=== PATIENT | female | born 1950 | race Caucasian/White ===

== ENCOUNTER → 2019-08-05 13:53 | Outpatient (BNVA) | payer MEDICARE, MEDICAID, SELFPAY | PROVIDERS: Family Provider Family Medicine; PCP Family Medicine; Visit Provider Specialist | DX: M25.552 Pain in left hip (principal); M16.0 Bilateral primary osteoarthritis of hip | CPT/HCPCS: 73502; 80053; 81003; 87081 ==

== ENCOUNTER 2019-08-20 16:14 | Outpatient (CLI) | payer MEDICARE, MEDICAID, SELFPAY ==
--- NOTE | 2019-08-20 16:59 | PC.NURSE ---
Pt swabbed for COVID, sample sent to lab.
[2019-08-22 11:30] LABS: Coronavirus Lab Test PTC SEE REPORT
== END 2019-08-20 16:15 | disposition home or self-care (01) ==
LOC: LAB 16:15
PROVIDERS: PCP Family Medicine; Visit Provider Specialist
DX: Z01.812 Encounter for preprocedural laboratory examination (principal)
CPT/HCPCS: 80053; 81000; 81003; 87635

== ENCOUNTER 2019-08-24 17:10 | Observation (INO) | payer MEDICARE, MEDICAID, SELFPAY ==
[2019-08-17 10:57] VITALS: BMI 33.0
--- NOTE | 2019-08-17 11:11 | ECG_ITS ---
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 Measurements Intervals [place] Rate: 74 P: -36 VT: 180 QRS: -32 QRSD: 93 T: 75 QT: 379 QTc: 421 Interpretive Statements SINUS RHYTHM LOW QRS VOLTAGE IN PRECORDIAL LEADS [QRS DEFLECTION < 1.0 mV IN CHEST LEADS] INCOMPLETE RIGHT BUNDLE BRANCH BLOCK [90+ ms QRS DURATION, TERMINAL R IN V1/V2, 40+ ms S IN I/aVL/V4/V5/V6] MODERATE VOLTAGE CRITERIA FOR LVH, CONSIDER NORMAL VARIANT [MEETS CRITERIA IN ONE OF: R(aVL), S(V1), R(V5), R(V5/V6)+S(V1)] POSSIBLE ANTERIOR MYOCARDIAL INFARCTION [30 ms Q WAVE IN V3/V4, OR R < 0.2 mV IN V4], PROBABLY OLD INFERIOR MYOCARDIAL INFARCTION [40+ ms Q WAVE AND/OR ST/T ABNORMALITY IN II/aVF], PROBABLY OLD No previous ECG available for comparison Electronically Signed On 08-17-2019 16:58:14 CDT by David Lincoln M.D. [email or web address]
--- NOTE | 2019-08-17 11:26 | ANES.PREANE2 ---
Pre-Anesthetic Assessment Pre-Anesthetic Assessment: Height/Weight: Height 1.7 m Weight 95.708 kg Preop Diagnosis: Severe degenerative osteoarthritis left hip Proposed Procedure: Operation Date: 08/24/19 10:30 Proposed Procedures p Total Hip Arthroplasty 96655 M16.12(Left) - Arabella Ruelas MD Familial anesthetic complications: None Social: Social History: No alcohol and No tobacco Exam: Pre-Anes Outpt Exam: alert, oriented x 3, clear to auscultation bilaterally and regular rate & rhythm Airway: Cervical ROM: WNL MP: 2 Dentition: Other (lots of missing teeth) Pulmonary: Pulmonary: None reported CV/HEM: CV/HEM: HTN : : None reported Hepatic: Hepatic: None reported GI: GI: GERD Musc/skel: Musc/skel: OA/DJD Neuropsych: Neuropsych: None reported Anesthetic Plan: ASA status: 2 Anesthesia: General Risk of > 500 ml blood loss (7ml/kg in children): No PFSH Anesthesia PFSH: Surgical History (Updated 08/17/19 @ 10:54 by Elenita Nieto RN) H/O total knee replacement History of appendectomy History of repair of ACL Hx of breast reduction, elective Social History Smoking and tobacco status: never smoked Alcohol intake: current Alcohol intake frequency: few times a month Data Anesthesia Cardiac Studies: No Data to Display
[2019-08-17 11:49] LABS: Basophils % 0.4 %; Eosinophils # 0.1 10^3/uL (0.0-0.8); Eosinophils % 1.6 %; Hematocrit 47.5 % (37.0-47.0); Hemoglobin 14.8 g/dL (11.5-15.3); Lymphocytes # 1.3 10^3/uL (0.8-4.8); Lymphocytes % 17.8 %; Mean Corpuscular HGB Conc 31.2 g/dL (30.0-36.0); Mean Corpuscular Hemoglobin 30.1 pg (28.0-34.0); Mean Corpuscular Volume 96.7 fL (81-99); Mean Platelet Volume 11.1 fL (7.4-10.4); Monocytes # 0.5 10^3/uL (0.2-0.9); Monocytes % 6.8 %; Neutrophils # 5.4 10^3/uL (1.8-7.7); Neutrophils % 73.1 %; Nucleated Red Blood Cells % 0 %; Platelet Count 228 10^3/cmm (130-400); Red Blood Count 4.91 10^6/uL (4.1-5.3); White Blood Count 7.3 10^3/uL (4.0-10.0)
[2019-08-17 11:57] LABS: Alanine Aminotransferase 9 U/L (0-33); Albumin Level 4.3 g/dL (3.5-5.2); Alkaline Phosphatase 68 IU/L (35-105); Anion Gap 12.9 (5-19); Aspartate Amino Transferase 13 U/L (0-32); Blood Urea Nitrogen 15 mg/dL (8-23); Calcium 9.4 mg/dL (8.5-10.5); Carbon Dioxide 28 mmol/L (22-29); Chloride 100 mmol/L (98-107); Globulin 2.8 g/dL (1.3-4.6); Glomerular Filtration Rate 99.4 mL/min (90-130); Glucose 96 mg/dL (65-115); Osmolality Calculated 280 mOsm/kg (285-295); Potassium 3.9 mmol/L (3.5-5.1); Sodium 137 mmol/L (136-145); Total Bilirubin 0.5 mg/dL (0.15-1.2); Total Protein 7.1 g/dL (6.6-8.7)
[2019-08-24] VITALS (16 sets, daily range): BP systolic 126–169; BP diastolic 64–131; PULSE 54–79; RESP 16–38; TEMP 35.9–36.8; O2SAT 90–100
[2019-08-24] MEDS: sodium chloride 0.9% 1,000 ML 30 ML IV (10:24)
[2019-08-24] MEDS: CELEcoxib 200 mg Capsule 400 MG PO (10:24)
--- NOTE | 2019-08-24 10:32 | W.PM.OPSUD ---
Surgery/Procedure H&P Update DATE OF PROCEDURE: August 24, 2019 DATE H&P PERFORMED: 08/05/19 H&P UPDATE INFORMATION: I have reviewed H&P completed within last 30 days, I have examined patient prior to procedure and H&P is in [facility] EMR on date indicated PREOP DIAGNOSIS: Severe degenerative osteoarthritis left hip PLANNED PROCEDURE: Operation Date: 08/24/19 11:35 Proposed Procedures p Total Hip Arthroplasty 02283 M16.12(Left) - Arabella Ruelas MD Related Problem List Diagnoses (1) Osteoarthritis of left hip: Qualifiers: Osteoarthritis type: primary Qualified Code(s): M16.12 - Unilateral primary osteoarthritis, left hip
--- NOTE | 2019-08-24 10:53 | ANES.PREANE2 ---
Pre-Anesthetic Assessment Pre-Anesthetic Assessment: Height/Weight: Height 1.7 m Weight 95.708 kg Temp Pulse Resp BP Pulse Ox 97.6 F 76 18 162/104 96 08/24/19 09:58 08/24/19 09:58 08/24/19 09:58 08/24/19 09:58 08/24/19 09:58 Preop Diagnosis: Severe degenerative osteoarthritis left hip Proposed Procedure: Operation Date: 08/24/19 11:35 Proposed Procedures p Total Hip Arthroplasty 55273 M16.12(Left) - Arabella Ruelas MD Was Beta Greg taken within 24 hours: N/A Last intake: Intake Last Liquid Date 08/23/19 Last Liquid Time 21:30 Last Solid Date 08/23/19 Last Solid Time 21:30 Social: Social History: No alcohol and No tobacco Exam: Pre-Anes Outpt Exam: alert, oriented x 3, clear to auscultation bilaterally and regular rate & rhythm Airway: Submandibular: WNL Cervical ROM: WNL MP: 2 History/ROS: No significant complaints Pulmonary: Pulmonary: None reported CV/HEM: CV/HEM: HTN : : None reported GI: GI: None reported Metabolic: Metabolic: None reported Musc/skel: Musc/skel: OA/DJD Neuropsych: Neuropsych: Anxiety Anesthetic Plan: ASA status: 2 Anesthesia: General Meds/Allergies Current Medications: Current Medications Generic Name Dose Route Start Last Admin Trade Name Freq PRN Reason Stop Dose Admin Sodium Chloride 1,000 mls @ 30 ml s/hr 08/24/19 07:45 08/24/19 10:24 Sodium Chloride 0.9% IV 08/25/19 07:44 30 mls/hr .Q24H HAYLIE Administration PFSH Anesthesia PFSH: Surgical History (Updated 08/17/19 @ 10:54 by Elenita Nieto RN) H/O total knee replacement History of appendectomy History of repair of ACL Hx of breast reduction, elective Social History Smoking and tobacco status: never smoked Alcohol intake: current Alcohol intake frequency: few times a month Data Anesthesia CBC & Chem 7: 08/17/19 11:12 08/17/19 11:12 Cardiac Studies: No Data to Display
--- NOTE | 2019-08-24 13:12 | P.OP_ITS ---
Operative Report Date of procedure: August 24, 2019 Pre-op Diagnosis: Severe degenerative osteoarthritis left hip Post-op diagnosis: same (same (With severe limited range of motion, very large osteophytes, and near autofusion.)) Post-op Findings: Preoperatively, the patient had significant limitations in range of motion. Postoperatively, the hip was stable at 90 degrees of flexion with 60 degrees of internal rotation. It was also stable to external rotation and toe hang Procedure Done: Left total hip arthroplasty utilizing the following implants from the Alejandra Accolade II total hip system: The size 52 mm solid back acetabular shell with an E alpha code and an MDM liner size 42 mm inner diameter by E alpha code. An Accolade II size 6 x 127 degree neck angle hip stem, femoral head size 28 mm outer diameter and +0 mm offset inside of an MDM insert size inner diameter 28 mm to match the 42E Specimens removed/disposition: Femoral head, disposed of Pathology: none sent Surgeon: Arabella Ruelas Major Appliance Assembly Supervisor: [facility] OR technicians Anesthesia: General (Intubated, ASA 2) Estimated blood loss (mL): 350 IV fluids (mL): 1,800 Urine output (mL): 150 Complications: None Findings: Severe degenerative osteoarthritis of the left hip with large osteophytes and restriction of range of motion. Condition: stable Disposition: PACU (Then to floor for observation, pain management, and initial physical therapy) Brief History: This 75-year-old woman presented with complaints of severe right hip pain with significant reduction in range of motion. She has had significant limitations in her activities of daily living. Risks and complications of surgery were discussed with the patient. She understood and wished to proceed. Consents were signed. Questions were answered. Procedure: Patient was brought to the operating theater. She was transferred to the operating room table and subsequently administered a general anesthetic intubated, ASA 3. Following administration of adequate anesthesia, the patient was placed in full lateral position and held in position with a pegboard. The patient's left lower extremity was then prepped and draped in usual fashion utilizing DuraPrep. It was draped free. Following prepping and draping a surgical pause was performed. At the time of surgical pause, we identified the site and side of surgery. We also identified the patient and preoperative surgical markings. Confirmation was made of equipment availability. Additionally, the patient's preoperative IV antibiotic, Ancef 2 g and TXA 1 g preoperatively was confirmed as being given in a timely fashion and being the appropriate. An additional dose was to be given postoperatively as well. Following the surgical pause, an incision was made centering over the patient's greater trochanter continuing proximally and distally as necessary to allow access to the hip joint. Dissection continued through skin and soft tissues using a scalpel, and hemostasis was obtained using electrocautery. The tensor fascia rima was identified and incised longitudinally. Sciatic nerve was identified and protected throughout the surgical procedure. A Charnley U retractor was placed after the tensor fascia rima had been incised longitudinally, and the sciatic nerve had been identified. The hip had s ignificant limitation in range of motion, and most particularly, and internal rotation. Retractors were placed, and the piriformis muscle was identified and tagged. Piriformis muscle along with the remaining short external rotators were then incised from the posterior aspect of the hip joint. These were retracted posteriorly. The capsule was entered in a T-type fashion with the edges being tagged. Upon entry through the capsule, there were large osteophytes covering all the way nearly to the greater trochanter along all sides of the neck. In this manner, the hip was nearly autofused accounting for the severe reduction in range of motion. Head was noted to be very deformed. Appropriate osteotomy was performed of the femoral neck following hip dislocation. We then evaluated the acetabulum. The femur was retracted anteriorly. Soft tissues were retracted, osteophytes were excised, and the labrum was removed. We then began reaming. Reaming was accomplished sequentially. We reamed to a size 51 to allow for a size 52 acetabular shell. The acetabulum was impacted into position. The dome hole was filled with the appropriate metal plug. Also, we confirmed that the acetabular insert was completely seated prior to addressing the femur. After the acetabulum was in appropriate position, we placed the MDM liner without difficulty. The cup was noted to seat nicely and had good fixation upon impact. Attention was directed to the proximal femur. The proximal femur was lifted out of the wound. A canal finder was passed after the box chisel. The reamer was used to lateralize. We then began broaching. We broached sequentially, and placed a size 6 broach in position for trial reduction. A trial reduction was accomplished with a +0 mm femoral head inside the appropriate MDM insert. This gave excellent stability, and with this in place, we had the above stabilities, and at that time, we felt that we had acceptable leg lengths. It had been determined preoperatively. Therefore, the +0 mm offset femoral head was chosen. Trial components were removed after the hip was dislocated. The size 6 Accolade II 127 degree neck angle hip stem was impacted into position without difficulty and onto this was placed a +0 mm offset femoral head with the appropriate MDM liner. The hip was then reduced without difficulty. With this construct, we had the above-noted stability. The stem was noted to seat nicely prior to placement of the femoral head. The wound was then copiously irrigated with 20 mL of Betadine and 500 mL of normal saline mixed together. Subsequently, we suctioned this out and irrigated the wound copiously with lactated Ringer's. Following reduction of the prosthesis once again, we confirmed the stability of the hip. Leg lengths were also felt to be satisfactory. Being satisfied with the prosthesis, attention was directed to closure. Closure was accomplished with 0 Vicryl in the capsular tissues. Piriformis was reattached with 0 Vicryl as well. Tensor fascia rima was closed with 0 Vicryl in an interrupted fashion. The subcutaneous tissues were closed with a combination of 0 Vicryl and 2-0 Monocryl. Vancomycin powder and a Gelfoam thrombin mixture was placed into the wound as well. The skin was closed with a running 3-0 Monocryl followed by Exofin and Steri-Strips. This was covered with Telfa and Tegaderm. The patient was placed in an abduction pillow. She was returned the Recovery Room in a satisfactory condition and will be discharged to the floor for postoperative rehabilitation and pain management. There were no complications. Associated Problem List Diagnoses (1) Osteoarthritis of left hip: Qualifiers: Osteoarthritis type: primary Qualified Code(s): M16.12 - Unilateral primary osteoarthritis, left hip
[2019-08-24] MEDS: vancomycin 1,000 MG SDV 1000 MG XX (16:12)
[2019-08-24] MEDS: ceFAZolin 1,000 mg SDV 1000 MG IRRIGATION (16:12)
--- NOTE | 2019-08-24 18:11 | XRR_ITS ---
PROCEDURE INFORMATION: Exam: XR Pelvis Exam date and time: 08/24/2019 6:31 PM Age: 68 years old Clinical indication: Device placement; Patient HX: Post op left total hip arthroplasty; Additional info: Left total hip arthroplasty. Low ap pelvis TECHNIQUE: Imaging protocol: XR pelvis. Views: 1 or 2 view. COMPARISON: XR LEFT HIP 08/05/2019 1:58 PM FINDINGS: Bones/joints: Interval left bipolar hip arthroplasty. There is moderate to severe right hip osteoarthritis. No fracture. No dislocation. The symphysis pubis and sacroiliac joints are not diastatic. Soft tissues: Postoperative soft tissue changes on the left. XR/XR pelvis 1-2V* 36315 IMPRESSION: Postoperative and degenerative changes.
[2019-08-24] MEDS: fentaNYL 50 mcg/mL INJ 2mL IVP ×2 (18:13→18:20)
[2019-08-24] MEDS: ondansetron 2 mg/ML SDV 2 mL 4 MG IVP (19:12)
[2019-08-24] MEDS: oxyCODONE 5 mg IR Tab/Cap PO ×2 (19:13→20:52)
[2019-08-24] MEDS: sodium chloride 0.9% 1,000 ML 100 ML IV (19:27)
--- NOTE | 2019-08-24 19:41 | SUR.PHASEI ---
1900 PT TO ROOM ALERT TALKATIVE WITH STAFF, C/O OF PAIN TO HIP NOW A 10 PT IS MORE ALERT AFTER TRANSFER, LT HIP DRESSING D/I FIRST ICE OFF PER PT REQUEST, PT ASKING FOR PAIN MED PT NURSE AT BEDSIDE AND TRANSFERING ORDERS ALEXIS PATENT OF YELLOW URINE,
[2019-08-24] MEDS: TRAMadol 50 mg Tablet PO (20:01)
[2019-08-24] MEDS: diazePAM 5 mg Tablet PO (20:52)
[2019-08-24] MEDS: chlorhexidine gluconate 0.12% Btl 473 mL 30 ML MUCOUS MEM (21:25)
--- NOTE | 2019-08-24 22:14 | PC.NURSE ---
Addendum entered by Shanelle Avila RN 08/24/19 22:47: Reported this to Doctor Jessenia and received new orders for OXY IR 5-10mg, PO, Q4H, PRN and VALIUM 5mg, PO, Q4H, PRN. After administering new dose of OXY IR and VALIUM, Pt is sleeping peacefully. Original Note: Upon arrival to floor Pt had uncontrollable pain and spasms in left hip.
[2019-08-25] VITALS (11 sets, daily range): BP systolic 105–119; BP diastolic 61–75; PULSE 68–93; RESP 16–20; TEMP 36.6–36.9; O2SAT 88–95
[2019-08-25] MEDS: oxyCODONE 5 mg IR Tab/Cap PO ×3 (02:00→19:03)
[2019-08-25] MEDS: diazePAM 5 mg Tablet PO ×2 (02:01→08:14)
[2019-08-25 04:43] LABS: Basophils % 0.1 %; Hematocrit 38.1 % (37.0-47.0); Hemoglobin 11.8 g/dL (11.5-15.3); Lymphocytes # 0.4 10^3/uL (0.8-4.8); Lymphocytes % 4.9 %; Mean Corpuscular Hemoglobin 30.5 pg (28.0-34.0); Mean Corpuscular Volume 98.4 fL (81-99); Mean Platelet Volume 10.6 fL (7.4-10.4); Monocytes # 0.7 10^3/uL (0.2-0.9); Monocytes % 7.8 %; Neutrophils # 7.63 10^3/uL (1.8-7.7); Neutrophils % 86.7 %; Nucleated Red Blood Cells % 0 %; Platelet Count 158 10^3/cmm (130-400); Red Blood Count 3.87 10^6/uL (4.1-5.3); Red Cell Distribution Width 13.1 % (12.1-15.1); White Blood Count 8.8 10^3/uL (4.0-10.0)
[2019-08-25] MEDS: sodium chloride 0.9% 1,000 ML 100 ML IV ×2 (04:57→17:14)
[2019-08-25 05:22] LABS: Blood Urea Nitrogen 10 mg/dL (8-23); Calcium 7.7 mg/dL (8.5-10.5); Carbon Dioxide 25 mmol/L (22-29); Chloride 103 mmol/L (98-107); Glomerular Filtration Rate 158.7 mL/min (90-130); Glucose 147 mg/dL (65-115); Osmolality Calculated 283 mOsm/kg (285-295); Sodium 137 mmol/L (136-145)
[2019-08-25] MEDS: cholecalciferol (vitamin D3) 1,000 unit Tablet 1000 UNIT PO (08:14)
[2019-08-25] MEDS: diclofenac 75 mg DR Tablet PO (08:14)
[2019-08-25] MEDS: hydroCHLOROthiazide 25 mg Tablet PO (08:14)
[2019-08-25] MEDS: multivitamin therapeutic Tablet 1 TAB PO (08:14)
[2019-08-25] MEDS: duloxetine 20 mg Capsule PO ×2 (08:14→17:21)
[2019-08-25] MEDS: gabapentin 100 mg Capsule PO (08:15)
[2019-08-25] MEDS: calcium carbonate 500 mg Chew Tablet 1000 MG PO (08:15)
[2019-08-25] MEDS: sennosides-docusate Tablet 2 TAB PO (08:15)
[2019-08-25] MEDS: aspirin 325 mg EC Tablet PO (08:15)
[2019-08-25] MEDS: iron polysaccharide complex 150 mg Capsule PO (08:15)
[2019-08-25] MEDS: CELEcoxib 200 mg Capsule PO (08:15)
[2019-08-25] MEDS: CLONazepam 0.5 mg Tablet PO ×2 (08:15→17:21)
[2019-08-25] MEDS: chlorhexidine gluconate 0.12% Btl 473 mL 30 ML MUCOUS MEM ×4 (08:15→21:30)
--- NOTE | 2019-08-25 11:49 | PM.PN ---
Subjective Subjective: Interval history: The patient had significant pain last night following her total hip arthroplasty. She does appear better today. She has fewer complaints of pain and is responding to oral pain medication. She states she does not feel that she is yet ready to go home, but she has not yet worked with physical therapy. Medications: Reviewed: Yes Vitals/I&O/Wt Last Vital Signs Temp 98.4 F 08/25/19 08:00 Pulse 68 08/25/19 08:00 Resp 16 08/25/19 08:01 BP 105/65 08/25/19 08:00 Pulse Ox 94 08/25/19 08:00 08/24/19 08/25/19 08/25/19 22:59 06:59 14:59 Intake Total 2200 / 2300 1240 / 3540 150 / 150 Output Total 650 / 650 750 / 1400 200 / 200 Balance 1550 / 1650 490 / 2140 -50 / -50 Physical Exam Const: COMMON NORMALS: no acute distress, average body habitus, patient oriented x3 and alert GENERAL APPEARANCE: cooperative and comfortable ORIENTATION/CONSCIOUSNESS: Yes awake HENMT: COMMON NORMALS: normocephalic and atraumatic HEAD & SCALP: normocephalic and atraumatic Eye: GENERAL EYE: appearance normal, both eyes and all related structures Chest: COMMONS NORMALS: normal inspection of the chest Resp: COMMON NORMALS: normal respiratory effort EFFORT & INSPECTION: Yes able to speak in complete sentences and Yes symmetric chest movement Extremity: LEFT LOWER EXTREMITY: Yes hip joint (Dressings are in place. There is no significant drainage.) Left hip: Yes inspection (There is no swelling about the thigh.), Yes palpation (Minimal tenderness to palpation about the thigh), Yes ROM (Not evaluated) and Yes neurovascular exam (Intact with regard to motor and sensory function. There is no evidence of DVT.) Neuro: COMMON NORMALS: patient oriented x3 SENSORIUM/ORIENTATION: Yes alert Psych: COMMON NORMALS: mental status grossly normal APPEARANCE: Yes grossly normal ATTITUDE: Yes calm and Yes engaged ATTENTION/CONCENTRATION: Yes attention grossly intact Skin: COMMON NORMALS: no rashes or lesions noted GENERAL SKIN EXAM: no rashes or lesions noted Urinary Catheter Management^: F: Cath Placed During This Visit: yes, but has since been removed by the nurse Reason for Continuing Indwelling Catheter: Decision to DC Catheter Urinary Catheter Date of Insertion: 08/24/19 Urinary Catheter Time of Insertion: 15:25 Date Urinary Catheter Removed: 08/25/19 Time Urinary Catheter Discontinued: 10:10 Data : 08/25/19 04:05 08/25/19 04:05 A&P Assessment and plan (1) History of total left hip arthroplasty: Patient is doing well following total hip arthroplasty. She did have some significant pain issues last evening, and this may delay her ability to proceed with aggressive therapies today. She has concerns about her ability to go home, and at one time, was considering alf. I have encouraged her toward home health, however, she will work with therapy today we will see when she can be ready for discharge. Status: Acute (2) Osteoarthritis of left hip: Status: Acute Qualifiers: Osteoarthritis type: primary Qualified Code(s): M16.12 - Unilateral primary osteoarthritis, left hip Attestations Medical Necessity Statement*: Patient requires continued hospitalization secondary to pain management. She has not started her physical therapy activities as of yet. Coding Level of Care Code Acute Granulator Tender for Ayla Cuellar Diagnoses History of total left hip arthroplasty Z96.642 Osteoarthritis of left hip M16.12 Osteoarthritis type: primary
--- NOTE | 2019-08-25 12:47 | PM.DCS ---
Discharge Providers Date of Admission: 08/24/19 17:10 Date of Discharge: August 25, 2019 Attending Provider at Admission: Arabella Ruelas MD Attending Provider at Discharge: Arabella Ruelas MD Primary Care Provider: Jay Mederosno Diagnoses at Discharge Discharge Diagnosis (1) History of total left hip arthroplasty: Status: Acute (2) Osteoarthritis of left hip: Status: Acute Qualifiers: Osteoarthritis type: primary Qualified Code(s): M16.12 - Unilateral primary osteoarthritis, left hip Reason for Visit Reason for Visit: osteoarthritis left hip Hospital Course Hospital Course: Patient was admitted under observation status on the day following total hip arthroplasty. She had significant pain throughout the first 12 to 14 hours following her hip arthroplasty. This limited her rehabilitation potential and safety for discharge to home. Currently, the patient is in her room. Her dressing is removed. Her wound is benign. It is a second postoperative day. She has walked out in the hallway and accomplished stairs. Therefore, it is felt that she is safe to be discharged to home. Discharge Summary: Patient was admitted to the hospital for observation following left total hip arthroplasty. On the day of admission, she had the following procedure: Left total hip arthroplasty utilizing the following implants from the Vernalis Accolade II total hip system: The size 52 mm solid back acetabular shell with an E alpha code and an MDM liner size 42 mm inner diameter by E alpha code. An Accolade II size 6 x 127 degree neck angle hip stem, femoral head size 28 mm outer diameter and +0 mm offset inside of an MDM insert size inner diameter 28 mm to match the 42E. Physical Exam Const: COMMON NORMALS: no acute distress, average body habitus, patient oriented x3 and alert GENERAL APPEARANCE: cooperative and comfortable ORIENTATION/CONSCIOUSNESS: Yes awake HENMT: COMMON NORMALS: normocephalic and atraumatic HEAD & SCALP: normocephalic and atraumatic Eye: GENERAL EYE: appearance normal, both eyes and all related structures Chest: COMMONS NORMALS: normal inspection of the chest Resp: COMMON NORMALS: normal respiratory effort EFFORT & INSPECTION: Yes able to speak in complete sentences and Yes symmetric chest movement Extremity: LEFT LOWER EXTREMITY: Yes hip joint (Dressing is removed. The wound is benign. There is no drainage.) Left hip: Yes inspection (There has been no drainage since the time of surgery.), Yes palpation (No significant tenderness to palpation.) and Yes neurovascular exam (Intact distal to the surgical site) Neuro: COMMON NORMALS: patient oriented x3 SENSORIUM/ORIENTATION: Yes alert Psych: COMMON NORMALS: mental status grossly normal APPEARANCE: Yes grossly normal ATTITUDE: Yes calm and Yes engaged ATTENTION/CONCENTRATION: Yes attention grossly intact Skin: COMMON NORMALS: no rashes or lesions noted GENERAL SKIN EXAM: no rashes or lesions noted Urinary Catheter Management^: F: Cath Placed During This Visit: yes, but has since been removed by the nurse Reason for Continuing Indwelling Catheter: Decision to DC Catheter Urinary Catheter Date of Insertion: 08/24/19 Urinary Catheter Time of Insertion: 15:25 Date Urinary Catheter Removed: 08/25/19 Time Urinary Catheter Discontinued: 10:10 Discharge Data Data Completed and Pending: Completed Studies During Hospitalization Category Date Time Status XR pelvis 1-2V* 7 2170 Routine Exams 08/24/19 18:11 Completed Pending at discharge Category Date Time Status Complete Blood Co unt w/Auto AM LABS Lab 08/26/19 04:00 Ordered Complete Blood Co unt w/Auto AM LABS Lab 08/27/19 04:00 Ordered Labs from last 24 hours 08/25/19 08/25/19 04:05 04:05 WBC 8.8 RBC 3.87 L Hgb 11.8 Hct 38.1 MCV 98.4 MCH 30.5 MCHC 31.0 RDW 13.1 Plt Count 158 MPV 10.6 H Neut % (Auto) 86.7 Lymph % (Auto) 4.9 Newton % (Auto) 7.8 Eos % (Auto) 0.0 Baso % (Auto) 0.1 Neut # (Auto) 7.63 Lymph # (Auto) 0.4 L [place] # (Auto) 0.7 Eos # (Auto) 0.0 Baso # (Auto) 0.0 Nucleated RBC % (a uto) 0 Nucleated RBCs # 0.0 Sodium 137 Potassium 4.0 Chloride 103 Carbon Dioxide 25 Anion Gap 13.0 BUN 10 Creatinine 0.4 L GFR Calculation 158.7 H Glucose 147 H Calculated Osmolal ity 283 L Calcium 7.7 L Vitals: Last Vital Signs Temp 98.1 F 08/25/19 11:51 Pulse 72 08/25/19 11:51 Resp 16 08/25/19 11:51 BP 119/75 08/25/19 11:51 Pulse Ox 93 08/25/19 11:51 Discharge Plan Discharge Patient Disposition: Home Health Service Condition: Stable Prescriptions: New acetaminophen 500 mg Tablet 1,000 mg PO Q8H 30 Days Qty: 180 RF: 0 aspirin 325 mg Tablet,Delayed Release (Dr/Ec) 325 mg PO DAILY 30 Days Qty: 0 RF: 0 oxycodone 5 mg Tablet 5 - 10 mg PO Q4H PRN (Reason: Moderate Pain) Qty: 40 RF: 0 Continued duloxetine 20 mg capsule,delayed release(DR/EC) 20 mg PO BID RF: 0 clonazepam 0.5 mg tablet,disintegrating 0.5 mg PO BID RF: 0 hydrochlorothiazide 25 mg tablet 25 mg PO DAILY RF: 0 gabapentin 100 mg capsule 100 mg PO DAILY RF: 0 Changed celecoxib 200 mg capsule 200 mg PO BID Qty: 60 RF: 0 Held diclofenac sodium 75 mg tablet,delayed release (DR/EC) 75 mg PO BID RF: 0 Hold Instructions: Resume on 09/26/19. AFTER completion of Celebrex Discharge Orders: Discharge Order (Routine); Ordered 08/24/19 Ordered By: Arabella Ruelas Other Ambulatory Orders: DME: Walker (Order) Location: None Selected Ordered By: Arabella Ruelas Referrals: [facility] [place] [Outside] (This is the company that has provided your walker. If you have any issues or questions with your walker, please call them at the phone number provided.) [facility] [Outside] Arabella Ruelas MD [Physician] - 09/06/19 10:15 am (You have an appointment on September 05 at 10:[address] Ruelas's office ) Jay Liu [Primary Care Provider] - 08/31/19 1:20 pm (You have an appointment on August 30 at 1:[address] Liu. ) Discharge Diet: Advance as tolerated and Usual diet Discharge Activity: Limit activity as instructed, Use walker/crutches as instructed and As per PT/OT instructions Patient Instructions: Acetaminophen (By mouth), Oxycodone/Acetaminophen (By mouth), Aspirin (By mouth), Celecoxib (By mouth), Osteoarthritis (DC) Activity Restrictions/Additional Instructions: Work with physical therapy for gait training and ambulation. Posterior hip precautions. Discharge Attestations Time Spent in Discharge Care*: greater than 30 min Specific Discharge Activities: Specific discharge activities: educating patient, documenting/other paperwork and evaluating patient/reviewing data Quality Metrics Clinical Quality Measures During this hospital stay, did patient experience: None Coding Level of Care Code Acute Automatic Stacker for Ayla Cuellar Diagnoses History of total left hip arthroplasty Z96.642 Osteoarthritis of left hip M16.12 Osteoarthritis type: primary
[2019-08-25] MEDS: ondansetron 2 mg/ML SDV 2 mL 4 MG IVP (15:37)
[2019-08-26] MEDS: acetaminophen 500 mg Tablet 1000 MG PO ×2 (02:51→11:40)
[2019-08-26] MEDS: sodium chloride 0.9% 1,000 ML 100 ML IV (02:53)
[2019-08-26 03:29] VITALS: RESP 18
[2019-08-26] MEDS: oxyCODONE 5 mg IR Tab/Cap PO ×2 (03:29→09:06)
[2019-08-26 03:31] VITALS: BP 121/70; PULSE 89; RESP 20; TEMP 36.6; O2SAT 95
[2019-08-26 03:32] LABS: Basophils % 0.2 %; Eosinophils # 0.1 10^3/uL (0.0-0.8); Eosinophils % 2.3 %; Hematocrit 33.8 % (37.0-47.0); Hemoglobin 10.5 g/dL (11.5-15.3); Lymphocytes # 0.7 10^3/uL (0.8-4.8); Lymphocytes % 11.9 %; Mean Corpuscular HGB Conc 31.1 g/dL (30.0-36.0); Mean Corpuscular Hemoglobin 30.7 pg (28.0-34.0); Mean Corpuscular Volume 98.8 fL (81-99); Mean Platelet Volume 10.7 fL (7.4-10.4); Monocytes # 0.5 10^3/uL (0.2-0.9); Monocytes % 9.4 %; Neutrophils # 4.28 10^3/uL (1.8-7.7); Nucleated Red Blood Cells % 0 %; Platelet Count 145 10^3/cmm (130-400); Red Blood Count 3.42 10^6/uL (4.1-5.3); Red Cell Distribution Width 13.6 % (12.1-15.1); White Blood Count 5.6 10^3/uL (4.0-10.0)
[2019-08-26 07:00] VITALS: BP 109/71; PULSE 75; RESP 18; TEMP 36.4; O2SAT 93
[2019-08-26] MEDS: CELEcoxib 200 mg Capsule PO (08:45)
[2019-08-26] MEDS: diclofenac 75 mg DR Tablet PO (08:46)
[2019-08-26] MEDS: hydroCHLOROthiazide 25 mg Tablet PO (08:46)
[2019-08-26] MEDS: aspirin 325 mg EC Tablet PO (08:47)
[2019-08-26] MEDS: CLONazepam 0.5 mg Tablet PO (08:47)
[2019-08-26] MEDS: gabapentin 100 mg Capsule PO (08:47)
[2019-08-26] MEDS: calcium carbonate 500 mg Chew Tablet 1000 MG PO (08:48)
[2019-08-26 09:06] VITALS: RESP 16
[2019-08-26] MEDS: duloxetine 20 mg Capsule PO (09:06)
[2019-08-26 11:00] VITALS: BP 107/70; PULSE 76; RESP 18; TEMP 36.7; O2SAT 92
--- NOTE | 2019-08-26 11:30 | PC.CHAP ---
Pastoral Care Encounter/Spiritual Assessment Type of Contact [] Declined room service attendant visit [] Patient/Family/Request visit [] Outpatient visit [] Follow-up visit [] Physician referral [] Code/Alert [x] Routine visit [] Staff referral [] Actively dying [] Patient sleeping [] Family support [] [] Out of room [] Palliative care [] [] Receiving care in room [] Pre-surgical visit [] Trauma [] Long length of stay [] ICU visit [] Other: Relational/Emotional Strength [x] Patient feels connected with others/family/visitors/staff [] Distress [] Loneliness/isolation [] Abandonment Spirituality of Patient [x] Person of Harriet [] Attends Nondenominational of their Harriet [x] Believes in Prayer [] Reads Bible or Baptist materials [x] There are Spiritual issues to be addressed Stitch Welder Interventions [x] Prayer [x] Active listening [x] Non-anxious presence [x] Spiritual/emotional support [] Crisis/trauma care [] Spiritual counseling [] Bereavement support [] Provided bereavement packet [] Provided Bible/devotional materials [] Provided toy/stuffed animal, coloring book to patient or family member [] Provided Communion [] Anointing/[place] [] Salvation [x] Completed spiritual assessment [] Other: Impact on Illness or Injury [] Angry [] Fearful [] Anxious [] Often cries [] Exhaustion [] Unable to work [] Unable to attend presybeterian [] Unable to walk/stand [] Unable to read [] Unable to drive [] Unable to eat/drink [] Unable to sleep [] Unable to be with family [] Patient intubated [x] Other: Summary Patient is Baptism and professed her harriet in [place]. Time spent with patient 30 minutes Pastoral Care Encounter/Spiritual Assessment Type of Contact [] Declined room service attendant visit [] Patient/Family/Request visit [] Outpatient visit [] Follow-up visit [] Physician referral [] Code/Alert [] Routine visit [] Staff referral [] Actively dying [] Patient sleeping [] Family support [] [] Out of room [] Palliative care [] [] Receiving care in room [] Pre-surgical visit [] Trauma [] Long length of stay [] ICU visit [] Other: Relational/Emotional Strength [] Patient feels connected with others/family/visitors/staff [] Distress [] Loneliness/isolation [] Abandonment Spirituality of Patient [] Person of Harriet [] Attends Nondenominational of their Harriet [] Believes in Prayer [] Reads Bible or Baptist materials [] There are Spiritual issues to be addressed Stitch Welder Interventions [] Prayer [] Active listening [] Non-anxious presence [] Spiritual/emotional support [] Crisis/trauma care [] Spiritual counseling [] Bereavement support [] Provided bereavement packet [] Provided Bible/devotional materials [] Provided toy/stuffed animal, coloring book to patient or family member [] Provided Communion [] Anointing/[place] [] Salvation [] Completed spiritual assessment [] Other: Impact on Illness or Injury [] Angry [] Fearful [] Anxious [] Often cries [] Exhaustion [] Unable to work [] Unable to attend presybeterian [] Unable to walk/stand [] Unable to read [] Unable to drive [] Unable to eat/drink [] Unable to sleep [] Unable to be with family [] Patient intubated [] Other: Summary Time spent with patient
[2019-08-26] MEDS: chlorhexidine gluconate 0.12% Btl 473 mL 30 ML MUCOUS MEM (11:41)
[2019-08-26 14:20] VITALS: BP 107/70; PULSE 76; RESP 18; TEMP 36.7; O2SAT 92
== END 2019-08-26 14:36 | disposition home health service (06) ==
LOC: MEDSURG 17:13
PROVIDERS: Admitting Provider Specialist; PCP Family Medicine; Visit Provider Specialist
PROC: (CPT 27130; principal; 2019-08-24 11:35)
DX: M16.12 Unilateral primary osteoarthritis, left hip (principal); I10 Essential (primary) hypertension; F41.9 Anxiety disorder, unspecified; K21.9 Gastro-esophageal reflux disease without esophagitis
CPT/HCPCS: 27130; 12345; 36415; 51702; 72170; 80048; 80053; 85025; 93005; 96361; 96365; 96375; 97110; 97116; 97161; 97166; 97530; C1776; G0378; J0131; J0330; J0690; J1100; J2405; J2704; J2710; J3010; J3370; J3490; J7030

== ENCOUNTER → 2019-09-06 10:15 | Outpatient (BNVA) | payer MEDICARE, MEDICAID, SELFPAY | PROVIDERS: PCP Family Medicine; Visit Provider Specialist | DX: Z96.642 Presence of left artificial hip joint (principal); M16.11 Unilateral primary osteoarthritis, right hip | CPT/HCPCS: 73502 ==

== ENCOUNTER 2019-09-10 15:13 | Outpatient (CLI) | payer MEDICARE, SELFPAY ==
[2019-09-10 17:33] LABS: Add Urine Microscopic? YES; Bilirubin Urine Neg (NEGATIVE); Blood Urine Neg (Negative); Glucose Urine UA Norm (Normal); Ketones Urine Negative (Negative); Leukocyte Esterase Urine 1+ (Negative); Nitrate Urine Negative (Negative); Protein Urine Neg (Negative); Urine Appearance Hazy (CLEAR); Urine Color Yellow (Yellow); Urobilinogen Urine Norm (Negative); pH Urine 5 (5-7)
[2019-09-10 17:34] LABS: Bacteria Urine 3+; Squamous Epithelial Cell Urine 0-4 (0-5); WBC Urine 40-55 /hpf (0-5)
[2019-09-10 17:35] LABS: Add Urine Culture? Yes
== END 2019-09-10 15:14 | disposition home or self-care (01) ==
LOC: LAB 15:17
PROVIDERS: PCP Family Medicine; Visit Provider Family Medicine
DX: N39.0 Urinary tract infection, site not specified (principal)
CPT/HCPCS: 81001; 81003; 87077; 87086; 87186

== ENCOUNTER → 2019-10-20 13:56 | Outpatient (BNVA) | payer MEDICARE, MEDICAID, SELFPAY | PROVIDERS: PCP Family Medicine; Visit Provider Specialist | DX: Z96.642 Presence of left artificial hip joint (principal) | CPT/HCPCS: 73502 ==

== ENCOUNTER → 2020-02-24 08:11 | Outpatient (BNVA) | payer MEDICARE, SELFPAY | PROVIDERS: PCP Family Medicine; Referring Provider Family Medicine; Visit Provider Specialist | DX: M16.11 Unilateral primary osteoarthritis, right hip (principal); M25.551 Pain in right hip | CPT/HCPCS: 73502 ==

== ENCOUNTER → 2020-03-30 14:36 | Outpatient (BNVA) | payer MEDICARE, MEDICAID, SELFPAY | PROVIDERS: PCP Family Medicine; Visit Provider Specialist | DX: Z01.812 Encounter for preprocedural laboratory examination (principal) | CPT/HCPCS: 87635 ==

== ENCOUNTER 2020-04-04 11:11 | Observation (INO) | payer MEDICARE, MEDICAID, SELFPAY ==
[2020-03-24 11:18] VITALS: BMI 33.5
[2020-03-24 12:15] LABS: Basophils % 0.6 %; Eosinophils # 0.2 10^3/uL (0.0-0.8); Eosinophils % 3.3 %; Hematocrit 44.7 % (37.0-47.0); Hemoglobin 14.2 g/dL (11.5-15.3); Lymphocytes # 1.1 10^3/uL (0.8-4.8); Lymphocytes % 19.5 %; Mean Corpuscular HGB Conc 31.8 g/dL (30.0-36.0); Mean Corpuscular Volume 91.4 fL (81-99); Mean Platelet Volume 11.2 fL (7.4-10.4); Monocytes # 0.5 10^3/uL (0.2-0.9); Monocytes % 9.5 %; Neutrophils # 3.61 10^3/uL (1.8-7.7); Neutrophils % 66.9 %; Nucleated Red Blood Cells % 0 %; Platelet Count 194 10^3/cmm (130-400); Red Blood Count 4.89 10^6/uL (4.1-5.3); Red Cell Distribution Width 13.2 % (12.1-15.1); White Blood Count 5.4 10^3/uL (4.0-10.0)
--- NOTE | 2020-03-24 12:26 | P.ANESASSM_ITS ---
Pre-Anesthetic Assessment Pre-Anesthetic Assessment: Height/Weight: Height 1.7 m Weight 97.069 kg Preop Diagnosis: Severe osteoarthritis right hip Proposed Procedure: Operation Date: 04/04/20 07:00 Proposed Procedures p Total Hip Arthroplasty right 92229 M16.11(Right) - Arabella Ruelas MD Was Beta Greg taken within 24 hours: N/A Social: Social History: No alcohol and No tobacco Exam: Pre-Anes Outpt Exam: alert, oriented x 3, clear to auscultation bilaterally and regular rate & rhythm Airway: Submandibular: WNL Cervical ROM: WNL MP: 2 Additional comments: Very poor dentition, missing several CV/HEM: CV/HEM: HTN GI: GI: GERD Metabolic: Metabolic: Morbid obesity Musc/skel: Musc/skel: OA/DJD Anesthetic Plan: ASA status: 3 Anesthesia: Choice Other: Discussed both GETA and SAB Risk of > 500 ml blood loss (7ml/kg in children): No PFSH Anesthesia PFSH: Medical History History of depression Hx of gastroesophageal reflux (GERD) Hx of multiple concussions Hx of primary hypertension Surgical History H/O total knee replacement History of appendectomy History of repair of ACL Hx of breast reduction, elective Hx of dilation and curettage Hx of laparoscopic gastric banding Hx of oral surgery Hx of tubal ligation Social History Smoking and tobacco status: never smoked Alcohol intake: current Alcohol intake frequency: few times a month Data Anesthesia CBC & Chem 7: 03/24/20 11:44 03/24/20 11:44 Other Labs: Laboratory Results - last 48 hr 03/24/20 11:44 WBC 5.4 RBC 4.89 Hgb 14.2 Hct 44.7 MCV 91.4 MCH 29.0 MCHC 31.8 RDW 13.2 Plt Count 194 MPV 11.2 H Neut % (Auto) 66.9 Lymph % (Auto) 19.5 [place] % (Auto) 9.5 Eos % (Auto) 3.3 Baso % (Auto) 0.6 Neut # (Auto) 3.61 Lymph # (Auto) 1.1 [place] # (Auto) 0.5 Eos # (Auto) 0.2 Baso # (Auto) 0.0 Nucleated RBC % (auto) 0 Nucleated RBCs # 0.0 Cardiac Studies: No Data to Display
[2020-03-24 12:36] LABS: Alanine Aminotransferase 8 U/L (0-33); Alkaline Phosphatase 69 IU/L (35-105); Anion Gap 12.2 (5-19); Aspartate Amino Transferase 11 U/L (0-32); Blood Urea Nitrogen 16 mg/dL (8-23); Carbon Dioxide 32 mmol/L (22-29); Chloride 101 mmol/L (98-107); Globulin 2.8 g/dL (1.3-4.6); Glomerular Filtration Rate 158.3 mL/min (90-130); Glucose 91 mg/dL (65-115); Osmolality Calculated 293 mOsm/kg (285-295); Potassium 4.2 mmol/L (3.5-5.1); Sodium 141 mmol/L (136-145); Total Bilirubin 0.5 mg/dL (0.15-1.2); Total Protein 6.8 g/dL (6.6-8.7)
[2020-03-24 14:40] LABS: Add Urine Microscopic? YES; Bilirubin Urine Neg (Negative); Blood Urine Neg (Negative); Glucose Urine UA Norm (Normal); Ketones Urine Negative (Negative); Leukocyte Esterase Urine Trace (Negative); Nitrate Urine Negative (Negative); Protein Urine Neg (Negative); Specific Gravity, Urine 1.029 (1.005-1.030); Urine Appearance Cloudy (CLEAR); Urine Color Yellow (Yellow); Urobilinogen Urine Norm (Negative); pH Urine 5 (5-7)
[2020-03-24 14:55] LABS: Add Urine Culture? No; Bacteria Urine 2+ /hpf; RBC Urine 0-4 /hpf (0-2); Squamous Epithelial Cell Urine 15-25 /hpf (0-5)
[2020-04-04] VITALS (26 sets, daily range): BP systolic 111–149; BP diastolic 68–94; PULSE 57–85; RESP 12–21; TEMP 36.4–36.9; O2SAT 92–96
[2020-04-04] MEDS: CELEcoxib 200 mg Capsule 400 MG PO (06:22)
--- NOTE | 2020-04-04 06:26 | P.ANESUD_ITS ---
Pre-Anesthetic Update Pre-Anesthetic Assessment: Date of Surgery/Procedure: 04/04/20 Preop Graciela gnosis: Severe degenerative osteoarthritis left hip Proposed Procedure: Operation Date: 04/04/20 07:00 Proposed Procedures p Total Hip Arthroplasty right 58261 M16.11(Right) - Arabella Ruelas MD Any changes to Pre-Anesthetic Assessment?: No Last Intake: Intake Last Liquid Date 04/03/20 Last Liquid Time 21:00 Last Solid Date 04/03/20 Last Solid Time 21:00 Vitals: Temperature 98.0 F 04/04/20 06:12 Temperature Source Temporal Artery S can 04/04/20 06:12 Pulse Rate 72 04/04/20 06:12 Respiratory Rate 16 04/04/20 06:12 Blood Pressure 133/85 04/04/20 06:12 Blood Pressure Aleksandra n 101 04/04/20 06:12 Pulse Oximetry 96 04/04/20 06:12 Oxygen Delivery Me thod 04/04/20 06:12 Exam: Pre-Anes Outpt Exam: alert, oriented x 3, clear to auscultation bilaterally and regular rate & rhythm Other Pertinent Information: Other Pertinent Information: Patient decided on GETA. Cardiac Studies: No Data to Display
[2020-04-04] MEDS: sodium chloride 0.9% 1,000 ML 30 ML IV (06:32)
[2020-04-04] MEDS: vancomycin 1,000 MG in sodium chloride 0.9% 250 ML 250 MG IV (06:43)
--- NOTE | 2020-04-04 06:54 | P.HPUD_ITS ---
Surgery/Procedure H&P Update DATE OF PROCEDURE: April 04, 2020 DATE H&P PERFORMED: 08/05/19 H&P UPDATE INFORMATION: I have reviewed H&P completed within last 30 days, I have examined patient prior to procedure, No changes to prior documentation and [place] [facility] [place] indicated PREOP DIAGNOSIS: Severe degenerative osteoarthritis left hip PLANNED PROCEDURE: Operation Date: 04/04/20 07:00 Proposed Procedures p Total Hip Arthroplasty right 91224 M16.11(Right) - Arabella Ruelas MD Related Problem List Diagnoses (1) Primary osteoarthritis of right hip:
[2020-04-04] MEDS: ceFAZolin 1,000 mg SDV 1000 MG IRRIGATION (08:35)
[2020-04-04] MEDS: vancomycin 1,000 MG SDV 1000 MG XX (08:35)
[2020-04-04] MEDS: fentaNYL 50 mcg/mL INJ 2mL IVP ×2 (10:40→10:45)
--- NOTE | 2020-04-04 10:47 | XR_ITS ---
WS: [id number] Exam: XR pelvis 1-2V* [id number] Date/Time of Exam: 04/04/2020 10:47 AM Reason For Exam: Status post right total hip arthroplasty AP image of the pelvis shows a right total hip prosthesis in place. Postoperative changes in the parviz cent soft tissues. Also noted is a total left hip replacement. The bony pelvis is intact. XR/XR pelvis 1-2V* [id number] IMPRESSION: 1. New right total hip prosthesis in place as noted above.
--- NOTE | 2020-04-04 10:48 | PM.OP ---
Operative Report Date of procedure: April 04, 2020 Pre-op Diagnosis: Severe degenerative osteoarthritis left hip Post-op diagnosis: same Post-op Findings: Preoperatively, the patient had significant limitations in range of motion. Postoperatively, the hip was stable at 90 degrees of flexion with 70 degrees of internal rotation. It was also stable to external rotation and toe hang Procedure Done: Right total hip arthroplasty Implants: Alejandra Accolade II total hip system: The size 52 mm solid back acetabular shell with an E alpha code and an MDM liner size 42 mm inner diameter by E alpha code. An Accolade II size 6 x 127 degree neck angle hip stem, femoral head size 28 mm outer diameter and +0 mm offset inside of an MDM insert size inner diameter 28 mm to match the 42E Specimens removed/disposition: Femoral head, disposed of Pathology: none sent Surgeon: Arabella Ruelas Lap Machine Operator: [facility] operating room technicians Anesthesia: General (Intubated, ASA 3) Estimated blood loss (mL): 400 IV fluids (mL): 1,300 Urine output (mL): 400 Complications: None Findings: Severe degenerative osteoarthritis of the right hip with large osteophytes and restricted range of motion. Stable as noted above under postoperative findings following the surgical procedure Condition: stable Disposition: PACU (Then to floor for postoperative observation, pain management and initiation of physical therapy) Brief History: This 69-year-old woman presented with complaints of severe right hip pain with significant reduction in range of motion. She has had significant limitations in her activities of daily living. Risks and complications of surgery were discussed with the patient. She understood and wished to proceed. Consents were signed. Questions were answered. Procedure: Patient was brought to the operating theater. She was transferred to the operating room table and subsequently administered a general anesthetic intubated, ASA 3. Following administration of adequate anesthesia, the patient was placed in full lateral position and held in position with a pegboard. The patient's righ thank you t lower extremity was then prepped and draped in usual fashion utilizing DuraPrep. It was draped free. Following prepping and draping a surgical pause was performed. At the time of surgical pause, we identified the site and side of surgery. We also identified the patient and preoperative surgical markings. Confirmation was made of equipment availability. Additionally, the patient's preoperative IV antibiotic, vancomycin 1 g and TXA 1 g preoperatively was confirmed as being given in a timely fashion and being the appropriate. An additional dose was given postoperatively as well. Following the surgical pause, an incision was made centering over the patient's greater trochanter continuing proximally and distally as necessary to allow access to the hip joint. Dissection continued through skin and soft tissues using a scalpel, and hemostasis was obtained using electrocautery. The tensor fascia rima was identified and incised longitudinally. Sciatic nerve was identified and protected throughout the surgical procedure. A Charnley U retractor was placed after the tensor fascia rima had been incised longitudinally, and the sciatic nerve had been identified. The hip had significant limitation in range of motion, and most particularly, and internal rotation. Retractors were placed, and the piriformis muscle was identified and tagged. Piriformis muscle along with the remaining short external rotators were then incised from the posterior aspect of the hip joint. These were retracted posteriorly. The capsule was entered in a T-type fashion with the edges being tagged. Upon entry through the capsule, there were large osteophytes, particularly posteriorly on the acetabulum. The femoral head was noted to be deformed. Appropriate osteotomy was performed of the femoral neck following hip dislocation. We then evaluated the acetabulum. The femur was retracted anteriorly. Soft tissues were retracted, osteophytes were excised, and the labrum was removed. We then began reaming. Reaming was accomplished sequentially. We reamed to a size 51 to allow for a size 52 acetabular shell. The acetabulum was impacted into position. The dome hole was filled with the appropriate metal plug. Also, we confirmed that the acetabular insert was completely seated prior to addressing the femur. After the acetabulum was in appropriate position, we placed the MDM liner without difficulty. The cup was noted to seat nicely and had good fixation upon impact. Attention was directed to the proximal femur. The proximal femur was lifted out of the wound. A canal finder was passed after the box chisel. The reamer was used to lateralize. We then began broaching. We broached sequentially, and placed a size 5 broach in position for trial reduction. A trial reduction was accomplished with a -4 mm femoral head inside the appropriate MDM insert. We initially attempted a +0 mm femoral head, but we were unable to reduce the hip. We elected to proceed with a -2.7 mm femoral offset, and this gave excellent stability. With this in place, we had the above stabilities, and at that time, we felt that we had acceptable leg lengths. It had been determined preoperatively. Therefore, the -2.7 mm offset femoral head was chosen. Trial components were removed after the hip was dislocated. The size 5 Accolade II 127 degree neck angle hip stem was impacted into position without difficulty and onto this was placed a -2.7 mm offset femoral head with the appropriate MDM liner. The hip was then reduced without difficulty. With this construct, we had the above-noted stability. The stem was noted to seat nicely prior to placement of the femoral head. The wound was then copiously irrigated with 20 mL of Betadine and 500 mL of normal saline mixed together. Subsequently, we suctioned this out and irrigated the wound copiously with lactated Ringer's. Following reduction of the prosthesis once again, we confirmed the stability of the hip. Leg lengths were also felt to be satisfactory. Being satisfied with the prosthesis, attention was directed to closure. Closure was accomplished with 0 Vicryl in the capsular tissues. Piriformis was reattached with 0 Vicryl as well. Tensor fascia rima was closed with 0 Vicryl in an interrupted fashion. The subcutaneous tissues were closed with a combination of 0 Vicryl and 2-0 Monocryl. Vancomycin powder and a Gelfoam thrombin mixture was placed into the wound as well. The skin was closed with a running 3-0 Monocryl followed by Exofin and Steri-Strips. This was covered with Telfa and Tegaderm. The patient was placed in an abduction pillow. She was returned the Recovery Room in a satisfactory condition and will be discharged to the floor for postoperative rehabilitation and pain management. There were no complications. Associated Problem List Diagnoses (1) Primary osteoarthritis of right hip:
[2020-04-04] MEDS: HYDROmorphone 1 mg/mL INJ 1 mL 0.5 MG IVP (10:51)
--- NOTE | 2020-04-04 12:04 | ANE.PACU2 ---
Inpatient post-anesthesia follow up: Airway intact: Yes Vital signs: Temperature 97.6 F Pulse Rate 69 Respiratory Rate 20 Blood Pressure 137/82 Pulse Oximetry 93 Oxygen Delivery Me thod Nasal Cannula Oxygen Flow Rate 3 Fraction of Inspir ed Oxygen Hydration adequate: Yes Nausea and vomiting: No Pain level: 3 Mental status: Baseline Additional Comments: Intraop question aspiration, scientific software developer noticed particulate at back of mouth during intubation. ETT changed and directed suctioning--patient did well during and after case.
--- NOTE | 2020-04-04 12:18 | PC.NURSE ---
Addendum entered by Itzel Thomas RN 04/04/20 15:01: noted scattered bruising to right upper/inner thigh area Original Note: OR NOTE UP VIA BED WITH LUCIA COSBY AT SIDE - PT ALERT AND ORIENTATED - SEE ADMISSION PHYSICAL ASSESSMENT - RIGHT HIP ARLEY PLACED ON - ABD PILLOW IN PLACE CHAYITO FOOT PUMPS ON AND WORKING
[2020-04-04] MEDS: lactated ringers 1,000 ML 100 ML IV ×2 (13:18→23:57)
[2020-04-04] MEDS: chlorhexidine gluconate 0.12% Btl 473 mL 30 ML MUCOUS MEM ×3 (13:19→20:25)
[2020-04-04] MEDS: gabapentin 100 mg Capsule PO ×2 (14:32→20:18)
[2020-04-04] MEDS: calcium carbonate 500 mg Chew Tablet 1000 MG PO (17:19)
[2020-04-04] MEDS: duloxetine 20 mg Capsule PO (17:20)
[2020-04-04] MEDS: sennosides-docusate Tablet 2 TAB PO (17:20)
[2020-04-04] MEDS: iron polysaccharide complex 150 mg Capsule PO (17:20)
[2020-04-04] MEDS: oxyCODONE 5 mg IR Tab/Cap PO (23:56)
[2020-04-05] VITALS (8 sets, daily range): BP systolic 104–161; BP diastolic 65–90; PULSE 68–83; RESP 16–18; TEMP 36.3–37.1; O2SAT 95–98
[2020-04-05 02:21] LABS: Basophils % 0.1 %; Eosinophils % 0.2 %; Hematocrit 36.4 % (37.0-47.0); Hemoglobin 11.6 g/dL (11.5-15.3); Lymphocytes # 0.9 10^3/uL (0.8-4.8); Lymphocytes % 8.9 %; Mean Corpuscular HGB Conc 31.9 g/dL (30.0-36.0); Mean Corpuscular Hemoglobin 29.4 pg (28.0-34.0); Mean Corpuscular Volume 92.2 fL (81-99); Mean Platelet Volume 10.3 fL (7.4-10.4); Monocytes # 0.9 10^3/uL (0.2-0.9); Monocytes % 9.8 %; Neutrophils # 7.78 10^3/uL (1.8-7.7); Neutrophils % 80.8 %; Nucleated Red Blood Cells % 0 %; Platelet Count 200 10^3/cmm (130-400); Red Blood Count 3.95 10^6/uL (4.1-5.3); Red Cell Distribution Width 13.1 % (12.1-15.1); White Blood Count 9.6 10^3/uL (4.0-10.0)
[2020-04-05 02:42] LABS: Blood Urea Nitrogen 9 mg/dL (8-23); Calcium 8.7 mg/dL (8.5-10.5); Carbon Dioxide 26 mmol/L (22-29); Chloride 102 mmol/L (98-107); Glomerular Filtration Rate 158.3 mL/min (90-130); Glucose 117 mg/dL (65-115); Osmolality Calculated 280 mOsm/kg (285-295); Sodium 135 mmol/L (136-145)
--- NOTE | 2020-04-05 05:35 | PC.NURSE ---
In room to take catheter out of patient at this time. Patient states, I would really rather leave the catheter until I know I can get up and walk. I already have a UTI anyway I don't think another day will hurt me. I feel like my leg has a lot of swelling as well and I would like it to go down before w take the catheter out. Patient took the ice off of her hip around midnight because she said she could not stand the pressure of the pack on her hip.
[2020-04-05] MEDS: vancomycin 1,000 MG in sodium chloride 0.9% 250 ML 250 MG IV (05:46)
--- NOTE | 2020-04-05 06:50 | PC.NURSE ---
Beside report to Itzel MYERS at this time
[2020-04-05] MEDS: oxyCODONE 5 mg IR Tab/Cap PO ×2 (08:14→13:59)
[2020-04-05] MEDS: multivitamin therapeutic Tablet 1 TAB PO (08:27)
[2020-04-05] MEDS: hydroCHLOROthiazide 25 mg Tablet PO (08:27)
[2020-04-05] MEDS: CELEcoxib 200 mg Capsule PO (08:27)
[2020-04-05] MEDS: aspirin 325 mg EC Tablet PO (08:27)
[2020-04-05] MEDS: pantoprazole DR 40 mg Tablet PO (08:27)
[2020-04-05] MEDS: gabapentin 100 mg Capsule PO ×2 (08:27→13:59)
[2020-04-05] MEDS: sennosides-docusate Tablet 2 TAB PO (08:27)
[2020-04-05] MEDS: cholecalciferol (vitamin D3) 1,000 unit Tablet 1000 UNIT PO (08:27)
[2020-04-05] MEDS: chlorhexidine gluconate 0.12% Btl 473 mL 30 ML MUCOUS MEM ×2 (08:28→13:04)
[2020-04-05] MEDS: calcium carbonate 500 mg Chew Tablet 1000 MG PO (08:35)
[2020-04-05] MEDS: duloxetine 20 mg Capsule PO (08:35)
--- NOTE | 2020-04-05 09:49 | PC.CHAP ---
Pastoral Care Encounter/Spiritual Assessment Type of Contact [] Declined electrotype finisher visit [] Patient/Family/Request visit [] Outpatient visit [] Follow-up visit [] Physician referral [] Code/Alert [x] Routine visit [] Staff referral [] Actively dying [] Patient sleeping [] Family support [] [] Out of room [] Palliative care [] [] Receiving care in room [] Pre-surgical visit [] Trauma [] Long length of stay [] ICU visit [] Other: Relational/Emotional Strength [x] Patient feels connected with others/family/visitors/staff [] Distress [] Loneliness/isolation [] Abandonment Spirituality of Patient [x] Person of Harriet [x] Attends Orthodox of their Harriet [x] Believes in Prayer [] Reads Bible or Adventism materials [] There are Spiritual issues to be addressed Stroke Belt Sander Operator Interventions [x] Prayer [x] Active listening [] Non-anxious presence [] Spiritual/emotional support [] Crisis/trauma care [] Spiritual counseling [] Bereavement support [] Provided bereavement packet [] Provided Bible/devotional materials [] Provided toy/stuffed animal, coloring book to patient or family member [] Provided Communion [] Anointing/[place] [] Salvation [x] Completed spiritual assessment [] Other: Impact on Illness or Injury [] Angry [] Fearful [] Anxious [] Often cries [] Exhaustion [] Unable to work [] Unable to attend denominational [] Unable to walk/stand [] Unable to read [] Unable to drive [] Unable to eat/drink [] Unable to sleep [] Unable to be with family [] Patient intubated [] Other: Summary patient so happy of care she has received love it Time spent with patient 10 min
--- NOTE | 2020-04-05 11:13 | PC.NURSE ---
Assisted pt with bath. tolerated well. pt washed own face & body (including private parts and underarms). brushed teeth. Brushed hair. Removed old bedding and replaced with new sheets. Put on clean gown. At 0930.
--- NOTE | 2020-04-05 11:38 | PC.NURSE ---
TYLENOL 100MG TYLENOL GIVEN PER MOM REQUEST - MOM STATES PT KEEPS POINTING AT HER HEAD SAYING OUCH
--- NOTE | 2020-04-05 14:19 | PM.DCS ---
Discharge Providers Date of Admission: 04/04/20 11:11 Date of Discharge: April 05, 2020 Attending Provider at Admission: Arabella Ruelas MD Attending Provider at Discharge: Arabella Ruelas MD Primary Care Provider: Jay Liu Diagnoses at Discharge Discharge Diagnosis (1) Primary osteoarthritis of right hip: Status: Acute (2) History of total right hip arthroplasty: Status: Acute Permanent problem details: Implants: Alejandra Accolade II total hip system: The size 52 mm solid back acetabular shell with an E alpha code and an MDM liner size 42 mm inner diameter by E alpha code. An Accolade II size 6 x 127 degree neck angle hip stem, femoral head size 28 mm outer diameter and +0 mm offset inside of an MDM insert size inner diameter 28 mm to match the 42E Reason for Visit Reason for Visit: primary osteoarthritis right hip Hospital Course Hospital Course This 69-year-old woman was admitted for same-day surgery yesterday, April 04, 2020. At that time, she underwent a right total hip arthroplasty uneventfully. She has previously undergone left total hip arthroplasty. She worked with physical therapy and did well. She was brought into the hospital overnight for observation. When she is evaluated on the first postoperative day, her independence is good. She is ambulating with therapy. She is comfortable with pain management. She is ready to be discharged home. The dressing is removed. Her wound is benign. There is no evidence of DVT or infection. She is neurologically intact. The patient will be discharged home with home health to follow-up with me as scheduled. Physical Exam Const: COMMON NORMALS: no acute distress, patient oriented x3 and alert GENERAL APPEARANCE: cooperative and comfortable ORIENTATION/CONSCIOUSNESS: Yes awake HENMT: COMMON NORMALS: normocephalic and atraumatic HEAD & SCALP: normocephalic and atraumatic Eye: GENERAL EYE: appearance normal, both eyes and all related structures Chest: COMMONS NORMALS: normal inspection of the chest Resp: COMMON NORMALS: normal respiratory effort EFFORT & INSPECTION: Yes able to speak in complete sentences and Yes symmetric chest movement Extremity: RIGHT LOWER EXTREMITY: Yes hip joint (Dressing is removed. The wound is benign. No evidence of infection) Right hip: Yes inspection (Thigh is not swollen and is soft.), Yes palpation (Minimal tenderness to palpation.), Yes ROM (Not evaluated.) and Yes neurovascular exam (Intact distally with no evidence of DVT) Neuro: COMMON NORMALS: patient oriented x3 SENSORIUM/ORIENTATION: Yes alert Psych: COMMON NORMALS: mental status grossly normal APPEARANCE: Yes grossly normal ATTITUDE: Yes calm and Yes engaged ATTENTION/CONCENTRATION: Yes attention grossly intact Skin: COMMON NORMALS: no rashes or lesions noted GENERAL SKIN EXAM: no rashes or lesions noted Urinary Catheter Management^: F: Cath Placed During This Visit: yes, but has since been removed by the nurse Reason for Continuing Indwelling Catheter: Decision to DC Catheter Urinary Catheter Date of Insertion: 04/04/20 Urinary Catheter Time of Insertion: 07:20 Date Urinary Catheter Removed: 04/05/20 Time Urinary Catheter Discontinued: 10:40 Discharge Data Data Completed and Pending: Completed Studies During Hospitalization Category Date Time Status XR pelvis 1-2V* 7 2170 Routine Exams 04/04/20 10:47 Completed Pending at discharge Category Date Time Status Complete Blood Co unt w/Auto AM LABS Lab 04/06/20 04:00 Ordered Complete Blood Co unt w/Auto AM LABS Lab 04/07/20 04:00 Ordered Labs from last 24 hours 04/05/20 04/05/20 02:04 02:04 WBC 9.6 RBC 3.95 L Hgb 11.6 Hct 36.4 L MCV 92.2 MCH 29.4 MCHC 31.9 RDW 13.1 Plt Count 200 MPV 10.3 Neut % (Auto) 80.8 Lymph % (Auto) 8.9 [place] % (Auto) 9.8 Eos % (Auto) 0.2 Baso % (Auto) 0.1 Neut # (Auto) 7.78 H Lymph # (Auto) 0.9 [place] # (Auto) 0.9 Eos # (Auto) 0.0 Baso # (Auto) 0.0 Nucleated RBC % (a uto) 0 Nucleated RBCs # 0.0 Sodium 135 L Potassium 4.0 Chloride 102 Carbon Dioxide 26 Anion Gap 11.0 BUN 9 Creatinine 0.4 L GFR Calculation 158.3 H Glucose 117 H Calculated Osmolal ity 280 L Calcium 8.7 Vitals: Last Vital Signs Temp 97.9 F 04/05/20 11:41 Pulse 68 04/05/20 11:41 Resp 18 04/05/20 13:59 BP 115/75 04/05/20 11:41 Pulse Ox 95 04/05/20 11:41 Discharge Plan Discharge Patient Disposition: Home Health Service Condition: Stable Prescriptions: New celecoxib 200 mg Capsule 200 mg PO DAILY Qty: 60 RF: 0 aspirin 325 mg Tablet,Delayed Release (Dr/Ec) 325 mg PO DAILY 30 Days Qty: 0 RF: 0 oxycodone 5 mg Tablet 5 mg PO Q6H PRN (Reason: Moderate Pain) Qty: 30 RF: 0 Continued duloxetine 20 mg capsule,delayed release(DR/EC) 20 mg PO BID RF: 0 clonazepam 0.5 mg tablet,disintegrating 0.5 mg PO BID RF: 0 hydrochlorothiazide 25 mg tablet 25 mg PO DAILY RF: 0 gabapentin 100 mg capsule 100 mg PO TID RF: 0 sulfamethoxazole-trimethoprim [Bactrim DS] 800-160 mg tablet 1 tab PO BID 10 Days Qty: 20 RF: 0 omeprazole 20 mg Capsule,Delayed Release(Dr/Ec) 20 mg PO DAILY RF: 0 celecoxib 200 mg Capsule 200 mg PO DAILY Qty: 30 RF: 0 Held diclofenac sodium 75 mg tablet,delayed release (DR/EC) 75 mg PO BID RF: 0 Hold Instructions: Resume on 09/26/19. AFTER completion of Celebrex Discharge Orders: Discharge Order (Routine); Ordered 04/05/20 Ordered By: Arabella Ruelas Referrals: [facility] [Outside] Arabella Ruelas MD [Physician] - 04/17/20 10:15 am Discharge Diet: Usual diet Discharge Activity: Increase activity as tolerated, Limit activity as instructed, Use walker/crutches as instructed and As per PT/OT instructions Patient Instructions: Aspirin (By mouth), Oxycodone, Rapid Release (By mouth), Celecoxib (By mouth), Total Hip Replacement (DC) Activity Restrictions/Additional Instructions: Follow posterior precautions. Physical therapy for gait training, ambulation, and strengthening. Keep wound covered as needed. Discharge Attestations Time Spent in Discharge Care*: greater than 30 min Quality Metrics Clinical Quality Measures During this hospital stay, did patient experience: None Coding Level of Care Code Acute Manager Data [employer]house for [employer] Diagnoses Primary osteoarthritis of right hip M16.11 History of total right hip arthroplasty Z96.641
--- NOTE | 2020-04-05 15:56 | PC.NURSE ---
DISCHARGE INSTRUCTIONS DISCHARGE INSTRUCTIONS GIVEN PER THIS NURE - PT VERBALIZES UNDERSTANDING
== END 2020-04-05 16:26 | disposition home health service (06) ==
LOC: MEDSURG 11:12
PROVIDERS: Admitting Provider Specialist; PCP Family Medicine; Visit Provider Specialist
PROC: (CPT 27130; principal; 2020-04-04 07:00)
DX: M16.11 Unilateral primary osteoarthritis, right hip (principal); I10 Essential (primary) hypertension; K21.9 Gastro-esophageal reflux disease without esophagitis; E66.01 Morbid (severe) obesity due to excess calories; Z68.33 Body mass index [BMI] 33.0-33.9, adult
CPT/HCPCS: 27130; 36415; 51702; 72170; 80048; 80053; 81001; 85025; 96361; 96365; 96375; 97110; 97161; 97166; 97530; 97535; C1776; G0378; J0131; J0690; J1100; J1170; J2405; J2704; J2710; J3010; J3370; J3490; J7030; J7050

== ENCOUNTER → 2020-04-24 12:59 | Outpatient (BNVA) | payer MEDICARE, MEDICAID, SELFPAY | PROVIDERS: PCP Family Medicine; Visit Provider Specialist | DX: Z96.641 Presence of right artificial hip joint (principal) | CPT/HCPCS: 73502 ==

== ENCOUNTER 2020-05-01 14:06 | Outpatient (RCR) | payer MEDICARE, MEDICAID, SELFPAY | END 2020-05-10 23:59 | disposition home or self-care (01) | LOC: SPT 14:06 | PROVIDERS: PCP Family Medicine; Referring Provider Specialist; Visit Provider Specialist | DX: Z47.1 Aftercare following joint replacement surgery (principal); Z96.641 Presence of right artificial hip joint | CPT/HCPCS: 97110; 97161; 97530 ==

== ENCOUNTER 2020-05-11 06:00 | Outpatient (RCR) | payer MEDICARE, MEDICAID, SELFPAY | END 2020-06-09 23:59 | disposition home or self-care (01) | LOC: SPT 06:00 | PROVIDERS: PCP Family Medicine; Referring Provider Specialist; Visit Provider Specialist | DX: Z47.1 Aftercare following joint replacement surgery (principal); Z96.641 Presence of right artificial hip joint | CPT/HCPCS: 97110 ==

== ENCOUNTER 2020-06-19 10:03 | Outpatient (CLI) | payer MEDICARE, MEDICAID, SELFPAY ==
--- NOTE | 2020-06-19 10:10 | FL_ITS ---
WS: [id number] UPPER GI WITH AIR TECHNICAL: FLUOROSCOPY TIME: 3.8 minutes CLINICAL INFORMATION: Z98.84 - Bariatric surgery status COMPARISON: None. FINDINGS: Prior gastric laparoscopic band procedure Swallowing: No penetration or aspiration Esophagus: Moderate esophageal dysmotility with delayed emptying on the upright and supine imaging. D ilatation of the distal esophagus with standing column of contrast in the upright imaging above the l aparoscopic band. Gastroesophageal reflux: Present in the upright and supine position to the midesophagus. Evidence of reflux esophagitis distal esophagus Stomach: Prior gastric banding procedure with delayed emptying proximal to the banding. Severe narrow ing at the banding. Moderate esophageal hiatal hernia above the gastric banding. Duodenum: Smooth eccentric filling defect in the first/second portion the duodenum nonspecific but ma y represent duodenal lipoma. Other findings: None. FL/FL upper GI w air* [id number] IMPRESSION: 1. Prior gastric banding procedure with delayed esophageal emptying esophageal dilatation above the laparoscopic band. 2. Moderate esophageal hiatal hernia above the gastric banding 3. Active reflux is visualized in the upright and supine imaging to the mideso phagus. Evidence of reflux esophagitis distal esophagus 4. Moderate esophageal dysmotility with delayed emptying in part due to the la paroscopic band 5. Smooth eccentric filling defect in the first/second portion of the duodenum nonspecific but may represent duodenal lipoma. This can be further evaluated w ith endoscopy or contrast enhanced CT abdomen pelvis with oral contrast.
== END 2020-06-19 10:04 | disposition home or self-care (01) ==
PROVIDERS: PCP Family Medicine; Visit Provider Surgery
DX: Z98.84 Bariatric surgery status (principal); K44.9 Diaphragmatic hernia without obstruction or gangrene
CPT/HCPCS: 74246

== ENCOUNTER → 2020-06-26 13:16 | Outpatient (BNVA) | payer MEDICARE, MEDICAID, SELFPAY | PROVIDERS: PCP Family Medicine; Visit Provider Specialist | DX: Z96.641 Presence of right artificial hip joint (principal) | CPT/HCPCS: 73502 ==

== ENCOUNTER → 2020-07-21 12:44 | Outpatient (BNVA) | payer MEDICARE, MEDICAID, SELFPAY | PROVIDERS: PCP Family Medicine; Visit Provider Surgery | DX: Z01.818 Encounter for other preprocedural examination (principal); Z20.822 Contact with and (suspected) exposure to COVID-19 | CPT/HCPCS: 87635 ==

== ENCOUNTER 2020-07-25 06:33 | Day surgery (SDC) | payer MEDICARE, MEDICAID, SELFPAY ==
[2020-07-24 11:03] VITALS: BMI 31.3
[2020-07-25] VITALS (8 sets, daily range): BP systolic 125–150; BP diastolic 74–96; PULSE 71–92; RESP 16–20; TEMP 36.6–36.8; O2SAT 94–98
[2020-07-25] MEDS: sodium chloride 0.9% 1,000 ML 30 ML IV (07:21)
--- NOTE | 2020-07-25 07:32 | ANES.PREANE2 ---
Pre-Anesthetic Assessment Pre-Anesthetic Assessment: Height/Weight: Height 1.7 m Weight 90.718 kg Temp Pulse Resp BP Pulse Ox 98.2 F 71 18 141/74 96 07/25/20 07:14 07/25/20 07:14 07/25/20 07:14 07/25/20 07:14 07/25/20 07:14 Preop Diagnosis: GERD associated with history of gastric band Proposed Procedure: Operation Date: 07/25/20 08:05 Proposed Procedures p EGD [id number] z98.84(Not Applicable) - Tico Ordonez MD s Gastric Band Adjustment(Not Applicable) - Tico Ordonez MD Was Beta Greg taken within 24 hours: N/A Was Clonidine taken within 24 hours: N/A Last intake: Intake Last Liquid Date 07/24/20 Last Liquid Time 21:00 Last Solid Date 07/24/20 Last Solid Time 21:00 Social: Social History: No alcohol Exam: Pre-Anes Outpt Exam: alert, oriented x 3, clear to auscultation bilaterally and regular rate & rhythm Airway: Submandibular: WNL Cervical ROM: WNL MP: 2 Dentition: Chipped Additional comments: poor dentition GI: GI: GERD Metabolic: Metabolic: Morbid obesity Musc/skel: Musc/skel: OA/DJD Neuropsych: Neuropsych: Anxiety Anesthetic Plan: ASA status: 3 Anesthesia: MAC Risk of > 500 ml blood loss (7ml/kg in children): No Meds/Allergies Current Medications: Current Medications Generic Name Dose Route Start Last Admin Trade Name Freq PRN Reason Stop Dose Admin Sodium Chloride 1,000 mls @ 30 ml s/hr 07/25/20 07:15 07/25/20 07:21 Sodium Chloride 0.9% IV 30 mls/hr .Q24H HAYLIE Administration PFSH Anesthesia PFSH: Medical History History of depression Hx of gastroesophageal reflux (GERD) Hx of multiple concussions Hx of primary hypertension Surgical History H/O total knee replacement History of appendectomy History of repair of ACL Hx of breast reduction, elective Hx of dilation and curettage Hx of laparoscopic gastric banding Hx of oral surgery Hx of tubal ligation Social History Smoking and tobacco status: never smoked Alcohol intake: current Alcohol intake frequency: few times a month History of recent travel: No Data Anesthesia CBC & Chem 7: 07/25/20 07:10 Cardiac Studies: No Data to Display
[2020-07-25 07:43] LABS: Anion Gap 13.2 (5-19); Blood Urea Nitrogen 8 mg/dL (8-23); Calcium 8.6 mg/dL (8.5-10.5); Carbon Dioxide 29 mmol/L (22-29); Chloride 103 mmol/L (98-107); Glomerular Filtration Rate 122.3 mL/min (90-130); Glucose 92 mg/dL (65-115); Osmolality Calculated 290 mOsm/kg (285-295); Potassium 4.2 mmol/L (3.5-5.1); Sodium 141 mmol/L (136-145)
--- NOTE | 2020-07-25 08:12 | W.PM.OPSFHP ---
Same Day Surgery H&P Indication for Procedure/HPI DATE OF PROCEDURE: July 25, 2020 CHIEF COMPLAINT/INDICATIONFOR SURGICAL PROCEDURE: Nausea and vomiting PREOP DIAGNOSIS: GERD associated with history of gastric band PLANNED PROCEDRUE: Operation Date: 07/25/20 08:05 Proposed Procedures p EGD [id number] z98.84(Not Applicable) - Tico Ordonez MD s Gastric Band Adjustment(Not Applicable) - Tico Ordonez MD This is a pleasant 69 years old female patient with current BMI of 33.2 and weighs 212 pounds. Patient reports history of adjustable gastric band that was placed back in 2012 in [facility], with initial weight 285. Patient reports that there is no fluid in the band when I asked her. She does have worsening acid reflux and reports to me that she has bad teeth cleaned because of the acid reflux. 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 Patient comes today and she is interested to address her issues with the gastric band. Interim history June 08, 2020 Patient comes today as a follow-up as she had undergone hip arthroplasties and now she is interested to pursue management of her gastric band as she has worsening acid reflux associated with vomiting and dental erosions but she describes that she has bad teeth now. Patient had an x-ray in the form of KUB in outside facility that showed hiatal hernia report is only available but no images.Unfortunately 10 now I did not receive any operative report from patient's gastric band that was done back 2012 In [place]. Interim history 07/25/2020 Patient comes today for diagnostic EGD and adjustment of gastric band. ROS All systems have been reviewed negative except as per the above or per problem list Medications/Allergies* Home Medications Medication Instructions Recorded Confirmed Type hydrochlorothiazide 25 mg tablet 25 mg PO DAILY 08/05/19 07/25/20 History clonazepam 0.5 mg disintegrating 0.5 mg PO BID PRN tab 06/08/20 07/25/20 History tablet omeprazole 20 mg capsule,delayed 40 mg PO BID cap 06/08/20 07/25/20 History release diphenhydramine HCl [Benadryl] 25 mg PO BEDTIME PRN 07/24/20 07/25/20 History duloxetine 20 mg PO DAILY 07/24/20 07/25/20 History Allergies/Adverse Reactions Allergy/AdvReac Type Severity Reaction Status Date / Time iron Allergy ADR-Vomitin Verified 07/25/20 08:20 g ketamine Allergy ADR-Agitate Verified 07/25/20 08:20 d morphine Allergy aggittion Verified 07/25/20 08:20 Current Medications: Generic Name Dose Route Start Last Admin Trade Name Freq PRN Reason Stop Dose Admin Sodium Chloride 1,000 mls @ 30 mls/hr 07/25/20 07:15 07/25/20 07:21 Sodium Chloride 0.9% IV 30 mls/hr .Q24H HAYLIE Administration Pertinent History/Comorbid Conditions* Medical History (Updated 07/09/20 @ 10:17 by Tico Ordonez MD) History of depression Hx of gastroesophageal reflux (GERD) Hx of multiple concussions Hx of primary hypertension Surgical History (Updated 04/05/20 @ 17:10 by Arabella Ruelas MD) H/O total knee replacement History of appendectomy History of repair of ACL Hx of breast reduction, elective Hx of dilation and curettage Hx of laparoscopic gastric banding Hx of oral surgery Hx of tubal ligation Social History Smoking and tobacco status: never smoked Alcohol intake: current Alcohol intake frequency: few times a month History of recent travel: No Pertinent Exam Findings alert, oriented x 3, clear to auscultation bilaterally and procedure specific exam findings (Well palpable port in the epigastric area otherwise abdominal examination ) Unremarkable abdominal examination Recommendations Surgery/Procedure today (Esophagogastroduodenoscopy with possible biopsy and gastric band adjust) Other Plans: Plan of care; After thorough history and physical examination and reviewing the chart, plan to perform a diagnostic esophagogastroduodenoscopy with possible biopsy with adjustment of gastric band. I discussed with the patient in detail the risk,benefits,alternatives and indications.The risk of aspiration, bleeding, soft tissue injury, perforation of the stomach/esophagus and other potential concomitant complications were explained to the patient in details,aslo the potential need for Thoracic and or Abdominal surgery to repair any complications.The patient understood this well and did agree to proceed. Rationale was carefully and clearly discussed with the patient.Appropriate informed consent have been reviewed and signed All questions have been answered and all concerns have been addressed to patient's satisfaction. 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
[2020-07-25] MEDS: lidocaine 2% INJ 20 mL INJECTION (08:39)
--- NOTE | 2020-07-25 09:12 | PM.OP ---
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 Full H&P informed consent per chart. Procedure: Patient was identified in holding area, was taken to the operating room and was placed in supine position. Timeout was done verifying the patient's name medical records and destination after the procedure, all were in agreement. Prep and drape of the upper abdomen was done under the usual sterile technique and Cornejo needle was used in an lidocaine 2% was injected at the site of band adjustment where the port is located. Multiple attempts to aspirate fluid were done but there was no fluid retained also an straight angiocatheter needle used to a specific length for the purpose of accessing the port yet no fluid was aspirated.A band aid and pressure dressing was applied. IV propofol was infused by the anesthesia provider followed by intubation as the patient had repeated history of nausea and vomiting. Time-out was done verifying the patient's name and the procedures presence of Dr. Paulino or myself, were in agreement A Bite-block was placed an EGD was introduced via the mouth all the way to the second part of the duodenum and the GE junction was found to be at 37 cm from the incisors were GERD was appreciated up to the level of 36 cm, the band was located at 42 cm from the GE junction without erosions. Appreciated gastric pouch proximal to the band. Residual food bezoar was appreciated at the proximal and middle segments of the esophagus. Prepyloric gastritis were evident and CLOtest from the antrum was done to rule out H. pylori infection. There were no lesions appreciated at the first and second part of the duodenum and the looked within normal limits. With normal-appearing papilla. Patient tolerated the procedure well And was taken to the recovery area in stable condition after being extubated I was present for the whole entire procedure.
--- NOTE | 2020-07-25 11:36 | ANE.PACU2 ---
Inpatient post-anesthesia follow up: Airway intact: Yes Vital signs: Temperature 98 F Pulse Rate 79 Respiratory Rate 18 Blood Pressure 128/93 Pulse Oximetry 95 Oxygen Delivery Me thod Room Air Oxygen Flow Rate 6 Fraction of Inspir ed Oxygen Hydration adequate: Yes Nausea and vomiting: No Pain level: 1 Mental status: Baseline
[2020-07-26 12:24] LABS: H. Pylori / CLO Test Negative
== END 2020-07-25 10:34 | disposition home or self-care (01) ==
PROVIDERS: Anesthesiology; PCP Family Medicine; Visit Provider Surgery
PROC: 0DJ08ZZ Inspection of Upper Intestinal Tract, Via Natural or Artificial Opening Endoscopic (ICD-10-PCS; CPT 43235; principal; 2020-07-25 07:55)
PROC: (CPT 43999; 2020-07-25 07:55)
DX: K21.9 Gastro-esophageal reflux disease without esophagitis (principal); Z46.51 Encounter for fitting and adjustment of gastric lap band; K29.70 Gastritis, unspecified, without bleeding; R11.2 Nausea with vomiting, unspecified; E66.01 Morbid (severe) obesity due to excess calories; Z68.31 Body mass index [BMI] 31.0-31.9, adult; M19.90 Unspecified osteoarthritis, unspecified site; F41.9 Anxiety disorder, unspecified
CPT/HCPCS: 43771; 43999; 36415; 80048; 87077; J0330; J2704; J7030

== ENCOUNTER → 2020-09-07 12:09 | Outpatient (BNVA) | payer MEDICARE, MEDICAID, SELFPAY | PROVIDERS: PCP Family Medicine; Visit Provider Surgery | DX: K95.09 Other complications of gastric band procedure (principal) | CPT/HCPCS: 87635 ==

== ENCOUNTER 2020-09-12 19:32 | Observation (INO) | payer MEDICARE, MEDICAID, SELFPAY ==
[2020-09-11 15:30] VITALS: BMI 31.0
[2020-09-12] VITALS (15 sets, daily range): BP systolic 116–165; BP diastolic 75–93; PULSE 56–89; RESP 12–21; TEMP 36.4–36.6; O2SAT 90–95; BMI 31.0
[2020-09-12] MEDS: scopolamine 1.5 Patch 1 PATCH TRANSDERMA (11:12)
[2020-09-12] MEDS: acetaminophen 1,000 MG/100 ML PIGGYBACK 400 MG IV (11:12)
[2020-09-12] MEDS: pantoprazole 40 mg SDV IVP (11:14)
[2020-09-12] MEDS: sodium chloride 0.9% 1,000 ML 999 ML IV (11:19)
[2020-09-12] MEDS: sodium chloride 0.9% 1,000 ML 30 ML IV (11:41)
--- NOTE | 2020-09-12 11:59 | ANES.PREANE2 ---
Pre-Anesthetic Assessment Pre-Anesthetic Assessment: Height/Weight: Height 1.7 m Weight 89.811 kg Temp Pulse Resp BP Pulse Ox 97.6 F 66 18 141/93 95 09/12/20 11:03 09/12/20 11:03 09/12/20 11:03 09/12/20 11:03 09/12/20 11:03 Preop Diagnosis: GERD associated with history of gastric band Proposed Procedure: Operation Date: 09/12/20 12:05 Proposed Procedures p Laparoscopic Removal Gastric Band [id number] k95.09(Not Applicable) - Tico Ordonez MD s EGD(Not Applicable) - Tico Ordonez MD Familial anesthetic complications: none Was Beta Greg taken within 24 hours: N/A Was Clonidine taken within 24 hours: N/A Last intake: Intake Last Liquid Date 09/11/20 Last Liquid Time 21:00 Last Solid Date 09/11/20 Last Solid Time 20:00 Social: Social History: No alcohol and No tobacco Exam: Pre-Anes Outpt Exam: alert, oriented x 3, clear to auscultation bilaterally and regular rate & rhythm Airway: Cervical ROM: WNL MP: 2 Dentition: Chipped GI: GI: GERD Comments: gastroparesis - was vomiting all last night Metabolic: Metabolic: Morbid obesity Musc/skel: Musc/skel: OA/DJD Neuropsych: Neuropsych: Anxiety Anesthetic Plan: ASA status: 3 Anesthesia: General Risk of > 500 ml blood loss (7ml/kg in children): No PFSH Anesthesia PFSH: Medical History History of depression Hx of gastroesophageal reflux (GERD) Hx of multiple concussions Hx of primary hypertension Surgical History H/O total knee replacement History of appendectomy History of repair of ACL Hx of breast reduction, elective Hx of dilation and curettage Hx of laparoscopic gastric banding Hx of oral surgery Hx of tubal ligation Social History Smoking and tobacco status: never smoked Alcohol intake: current Alcohol intake frequency: few times a month History of recent travel: No Data Anesthesia Cardiac Studies: No Data to Display
--- NOTE | 2020-09-12 13:11 | P.HP_ITS ---
Same Day Surgery H&P Indication for Procedure/HPI DATE OF PROCEDURE: September 12, 2020 CHIEF COMPLAINT/INDICATIONFOR SURGICAL PROCEDURE: My acid reflux is getting worse PREOP DIAGNOSIS: GERD associated with history of gastric band PLANNED PROCEDRUE: Operation Date: 09/12/20 12:05 Proposed Procedures p Laparoscopic Removal Gastric Band [id number] k95.09(Not Applicable) - Tico Ordonez MD s EGD(Not Applicable) - Tico Ordonez MD Patient comes today as a follow-up status post EGD and adjustment of gastric band. Patient was found to; GE junction was found to be at 37 cm from the incisors were GERD was appreciated up to the level of 36 cm, the band was located at 42 cm from the GE junction without erosions. Appreciated gastric pouch proximal to the band. Residual food bezoar was appreciated at the proximal and middle segments of the esophagus. Patient continues to have repeated nausea and vomiting with frequent aspiration and difficulty in swallowing related to gastric band placement, she also does have extensive teeth erosion due to worsening acid reflux secondary to the gastric band. Patient's quality of life has been remarkably affected with the placement of the band and she is interested to proceed with laparoscopic explantation. Interim history a 04/29/2020 Patient comes today for laparoscopic explantation of gastric band. ROS All systems have been reviewed negative except as per the above or per problem list Medications/Allergies* Home Medications Medication Instructions Recorded Confirmed Type hydrochlorothiazide 25 mg tablet 25 mg PO DAILY 08/05/19 09/12/20 History clonazepam 0.5 mg disintegrating 0.5 mg PO BID PRN tab 06/08/20 09/12/20 History tablet omeprazole 20 mg capsule,delayed 40 mg PO BID cap 06/08/20 09/12/20 History release diphenhydramine HCl [Benadryl] 25 mg PO BEDTIME PRN 07/24/20 09/12/20 History duloxetine 20 mg PO DAILY 07/24/20 09/12/20 History Allergies/Adverse Reactions Allergy/AdvReac Type Severity Reaction Status Date / Time iron Allergy ADR-Vomitin Verified 09/12/20 13:18 g ketamine Allergy ADR-Agitate Verified 09/12/20 13:18 d morphine Allergy aggittion Verified 09/12/20 13:18 Pertinent History/Comorbid Conditions* Medical History (Updated 07/09/20 @ 10:17 by Tico Ordonez MD) History of depression Hx of gastroesophageal reflux (GERD) Hx of multiple concussions Hx of primary hypertension Surgical History (Updated 04/05/20 @ 17:10 by Arabella Ruelas MD) H/O total knee replacement History of appendectomy History of repair of ACL Hx of breast reduction, elective Hx of dilation and curettage Hx of laparoscopic gastric banding Hx of oral surgery Hx of tubal ligation Social History Smoking and tobacco status: never smoked Alcohol intake: current Alcohol intake frequency: few times a month History of recent travel: No Pertinent Exam Findings alert, oriented x 3, clear to auscultation bilaterally, regular rate & rhythm and procedure specific exam findings (Abdominal examination nontender nondistended soft) Recommendations Surgery/Procedure today (Laparoscopic possible open explantation of gastric band) Other Plans: After thorough history and physical examination and reviewing the chart and images with my personal interpretation and reviewing the recent endoscopy findings; Giving the fact that the patient has been having refractory GERD disease, without much improvement on chronic PPI therapy, plan to perform laparoscopic explantation of gastric band possible open and intraoperative esophagogastroduodenoscopy. I did explain for the patient that we can have her on liquid protein diet 10 days prior to explantation of the band to downsize of the liver. I did discuss in length and in depth with the patient the potential benefits, alternatives, indications and risks, with special emphasis on; infection, leak from stomach that may require additional surgeries, gastric stenosis or stricture, also potential injury to nearby organs. Also patient is aware of potential related complications to EGD placement included but not limited to perforation of the esophagus or stomach or other viscera, may require further surgeries conversion to open with potential thoracotomy and or laparotomy and conversion to gastric bypass and potential placement of feeding tube. The patient verbalized understanding and agreed with the plan of care in the presence of her sister Patient did agree and would like to proceed according, informed consent per chart. Assurance and education All questions have been answered and all concerns have been addressed to patient's satisfaction. Coding Level of Care Code Acute Chief Librarian Work With Blind for Ayla Cuellar
--- NOTE | 2020-09-12 17:33 | P.PCN_ITS ---
PACU note PACU note: VSS, Good respiratory effort, report to SUPERVISORY GEOGRAPHER Post-Anesthesia Exam: awake
--- NOTE | 2020-09-12 17:33 | PM.PACU ---
PACU note PACU note: VSS, Good respiratory effort, report to UNDERWATER HUNTER Post-Anesthesia Exam: awake
[2020-09-12] MEDS: fentaNYL 50 mcg/mL INJ 2mL IVP ×2 (17:36→17:41)
--- NOTE | 2020-09-12 17:41 | PM.OP ---
Operative Report Date of procedure: September 12, 2020 Pre-op Diagnosis: GERD associated with history of gastric band Post-op diagnosis: same Post-op Findings: Gastric band in good position Procedure Done: 1-Laparoscopic explantation of gastric band and intraoperative EGD 2-Intraoperative drain placement Implants: 15 Djib[place]ian round Elias drain Specimens removed/disposition: Gastric band for gross pathology Surgeon: Tico Ordonez Machine Egg Washer: Surgical techs Grace and Parul Circulating nurses Renae and Sarah Anesthesia: General (GETA SUPERVISOR VACUUM METALIZING Gumaro) Estimated blood loss (mL): 10 IV fluids (mL): 700 Urine output (mL): 150 Condition: stable Disposition: observation Brief History: History of complications related to gastric band. Procedure: After identifying the patient in the holding area, patient was given Heparin subcutaneous, patient was then taken to the OR placed in supine position, intubated by anesthesia, IV antibiotics were given per protocol, SCDs were on and functioning, and the blockers were updated. Benton catheter was inserted by the circulating nurse revealing clear urine, prep and drape of the abdomen was done under the usual sterile technique. I started by 15 cm below the xiphoid and 3 cm to the left of the midline 15 blade knife was used for skin incision, I used a 12 mm Opti-Vu port access to the abdominal cavity with a 0 10 mm scope, low flow gas followed by high flow at a pressure of 15 mm, Under direct vision I was able to place another 12 mm port at the epigastric region towards the left of the midline , followed by 5 mm trocar was placed 3 fingerbreadths below the 12 mm trocar and towards the midline, followed by 5 mm trocar was placed at the left flank region again under direct visualization. At this point the patient was placed in reverse T Bravo, I was able to lift the left lobe of the liver up ,dissection using the LigaSure at the band site following the tubing system ,combination of sharp and blunt dissection was used revealing the band encircling the stomach and evidence of pseudocapsule was noticed.I was able to take all adhesions down with appropriate hemostasis without violating the stomach.The actual band was stuck to the underlying surface of the left lobe of the liver,appropriate dissection was achieved freeing the band from the surrounding adhesions. At this point I was able to unbuckle the band buckle, I used the left flank 5 mm trocar to introduce an instrument from the beginning to lift up the left lobe of the liver with my assistance,to have a better visualization, at this point the band was completely freed out from the encirclement around the stomach, leaving behind scarred down proximal gastric ring. At this point I scrubbed out and inserted in upper endoscopy and had my events and promotions assistant to clamp distally onto the stomach, irrigation was done, I insufflated gas within the stomach to check for any leaks and there was nothing identified nor injuries, there was no evidence of strictures, was no evidence of leak of air within the abdominal cavity,the esophagus and stomach looked within normal. At that point I deflated the stomach and the scope was retrieved out. I re-scrubbed again and created transverse incision at the previous scar of the actual port placement, I was able to dissect it and laparoscopically I cut the tubing and retrieved the port part and passed it to the circulating nurse for gross pathology, the rest of the tubing and the band system was retrieved out from the epigastric 12 mm trocar and the whole band system now was sent for pathology. The fascial defect was closed under direct visualization using #1 PDS suture. Thorough irrigation and suction was done, a laparoscopic survey was achieved showing no residual injuries. I elected to place a 2-0 silk [id number] suture at the site of the explantation of the mental approximate tissues. At that point I elected to place a 15 Djiboutian rounded Elias drain underneath the left lobe of the liver at the site of the explantation of the band, appropriate hemostasis was achieved, the drain was introduced via the left flank 5 mm port, secured to the abdominal wall with 2/0 nylonx2. Bilateral TAP (transversus abdominous plain peripheral nerve block )block using Exparel 20 mL Exparel 40 ml Normal saline 20 ml bupivacaine 0.25% 30 mL on each side injected 20 mL injected the port sites Under direct visualization a Hipolito Black device was used to close the 12 mm port sites using #1 PDS suture, at that point gas was allowed to deflate, trocars were taken out under direct visualization. Epigastric incision was closed using 3-0 Vicryl, other than that skin manuel were used to close skin incisions, followed by dry dressing. Patient tolerated the procedure and was extubated and was taken to the recovery area in stable condition Counts of instruments,needles and sponges were completed at the end of the procedure The Benton catheter was taken out by the circulating nurse I Was present for the whole entire procedure
--- NOTE | 2020-09-12 17:49 | ANE.PACU2 ---
Inpatient post-anesthesia follow up: Airway intact: Yes Vital signs: Temperature 97.7 F Pulse Rate 66 Respiratory Rate 18 Blood Pressure 158/84 Pulse Oximetry 95 Oxygen Delivery Me thod Nasal Cannula Oxygen Flow Rate 2 Fraction of Inspir ed Oxygen Hydration adequate: Yes Nausea and vomiting: No Pain level: 2 Mental status: Baseline
[2020-09-12] MEDS: morphine 4 mg/mL SDV 1 mL 2 MG IVP (21:32)
[2020-09-12] MEDS: lactated ringers 1,000 ML 100 ML IV (21:32)
[2020-09-13 03:00] VITALS: BP 131/81; PULSE 65; RESP 18; TEMP 36.4; O2SAT 95
[2020-09-13 04:26] VITALS: RESP 18
[2020-09-13] MEDS: morphine 4 mg/mL SDV 1 mL 2 MG IVP ×2 (04:26→08:30)
[2020-09-13] MEDS: famotidine 20 mg/2 mL INJ IVP (05:23)
[2020-09-13 05:53] LABS: Hematocrit 41.5 % (37.0-47.0); Hemoglobin 12.5 g/dL (11.5-15.3)
[2020-09-13 06:00] VITALS: PULSE 69
[2020-09-13 06:13] LABS: Blood Urea Nitrogen 10 mg/dL (8-23); Carbon Dioxide 27 mmol/L (22-29); Chloride 104 mmol/L (98-107); Glomerular Filtration Rate 158.3 mL/min (90-130); Glucose 109 mg/dL (65-115); Osmolality Calculated 290 mOsm/kg (285-295); Sodium 140 mmol/L (136-145)
--- NOTE | 2020-09-13 07:45 | P.PN_ITS ---
Subjective Subjective: Interval history: Patient overall feels well and minimal serosanguineous output per drain. Adequate urine output. No acute events overnight. Labs are appropriate. Except for low calcium level. Medications: Reviewed: Yes Vitals/I&O/Wt Last Vital Signs Temp 97.6 F 09/13/20 03:00 Pulse 69 09/13/20 06:00 Resp 18 09/13/20 04:26 BP 131/81 09/13/20 03:00 Pulse Ox 95 09/13/20 03:00 09/12/20 09/13/20 09/13/20 22:59 06:59 14:59 Intake Total 160 / 160 60 / 220 Output Total 380 / 380 350 / 730 Balance -220 / -220 -290 / -510 Weight last 48 hrs Weight 198 lb Weight 198 lb Weight 198 lb Physical Exam Narrative: EXAM NARRATIVE: Patient is conscious alert oriented X3 BMI 31 Head and neck examination PERRLA no masses no cervical lymphadenopathy no jaundice Cardiac examination audible S1-S2 no murmurs no gallops no arrhythmias Chest is clear bilateral,abscence of Rhonchi or wheezes,no surgical emphysema Abdomen nontender except mildly at the incision sites. Otherwise dressing is intact nondistended soft no organomegaly guarding or rigidity/no signs of peritonitis, left-sided drain in place with serosanguineous output Extremities no cyanosis no clubbing no edema Urinary Catheter Management^: F: Cath Placed During This Visit: yes, but has since been removed by the nurse Urinary Catheter Date of Insertion: 09/12/20 Urinary Catheter Time of Insertion: 15:45 Date Urinary Catheter Removed: 09/12/20 Time Urinary Catheter Discontinued: 17:20 Data : 09/13/20 04:53 09/13/20 04:53 A&P Assessment and plan (1) History of removal of laparoscopic gastric banding device: Status post laparoscopic explantation of adjustable gastric band 09/12/2020 Continue n.p.o. status till upper GI study is done, once this is cleared we will start the patient on clear liquid diet and discharged home Drain teaching and education Risk of fall Obtain abdominal binder for comfort Replacement of calcium Assurance and education All questions have been answered and all concerns have been addressed to patient's satisfaction. Status: Acute Attestations Medical Necessity Statement*: Patient is kept in the hospital for observation status for perioperative care of explantation of gastric band. Awaiting upper GI study for potential discharge home today. Time Spent in Patient Care: (>than 50% of time spent in counselling and/or direct pt care on unit) . Coding Level of Care Code Acute Electronic Parts Designer for Chg Fwd Diagnoses History of removal of laparoscopic gastric banding device Z98.84
--- NOTE | 2020-09-13 08:00 | FL_ITS ---
WS: [id number] Barium swallow and esophagram, upper GI series with Gastrografin, 09/13/2020 Clinical Data: Status post explantation of adjustable gastric band Comparison: Upper GI series, 06/19/2020. Fluoroscopy time: 1.5 minutes. Findings: The patient swallowed the Gastrografin and it passed through the hypopharynx. The esophagus was dilated with abnormal dilatation throughout. There is extremely poor motility. Ther e is narrowing at the gastroesophageal junction at 2 levels. The more proximal narrowing is at the T 10 vertebral level and shows a possible small ulceration. The Gastrografin passes into dilated distal esophagus and then there is narrowing at the gastroesophageal junction similar to the appearance on the prior study. The Gastrografin passed slowly into the stomach. The body and distal stomach appeare d normal with no ulcer, polyp, mass or extravasation. The Gastrografin passed slowly into the duodenum. No duodenal ulcer could be seen. The patient has bi lateral hip arthroplasties. FL/FL upper GI gastrografin [id number] Impression: 1. 2 areas of narrowing, one of the distal esophagus at the T10 level with poss ible ulceration, the other narrowing at the gastroesophageal junction unchanged . 2. Marked dilatation of the esophagus with very poor motility. 3. Normal stomach and duodenal bulb.
[2020-09-13] MEDS: lactated ringers 1,000 ML 100 ML IV (08:16)
[2020-09-13 08:30] VITALS: RESP 18
[2020-09-13] MEDS: diatrizoate meglumine 120 mL Sol PO (09:56)
--- NOTE | 2020-09-13 10:47 | PC.CHAP ---
Pastoral Care Encounter/Spiritual Assessment Type of Contact [] Declined career manager visit [] Patient/Family/Request visit [] Outpatient visit [] Follow-up visit [] Physician referral [] Code/Alert [x] Routine visit [] Staff referral [] Actively dying [] Patient sleeping [] Family support [] [] Out of room [] Palliative care [] [] Receiving care in room [] Pre-surgical visit [] Trauma [] Long length of stay [] ICU visit [] Other: Relational/Emotional Strength [x] Patient feels connected with others/family/visitors/staff [] Distress [] Loneliness/isolation [] Abandonment Spirituality of Patient [x] Person of Harriet [] Attends Shinto of their Harriet [x] Believes in Prayer [] Reads Bible or Latter Day materials [] There are Spiritual issues to be addressed Social Welfare Administrator Interventions [x] Prayer x] Active listening [] Non-anxious presence [x] Spiritual/emotional support [] Crisis/trauma care [] Spiritual counseling [] Bereavement support [] Provided bereavement packet [] Provided Bible/devotional materials [] Provided toy/stuffed animal, coloring book to patient or family member [] Provided Communion [] Anointing/[place] [] Salvation [x] Completed spiritual assessment [] Other: Impact on Illness or Injury [] Angry [] Fearful [] Anxious [] Often cries [] Exhaustion [] Unable to work [] Unable to attend latter day [] Unable to walk/stand [] Unable to read [] Unable to drive [] Unable to eat/drink [] Unable to sleep [] Unable to be with family [] Patient intubated [] Other: Summary Time spent with patient 15 m,in
[2020-09-13 11:00] VITALS: BP 144/77; PULSE 59; RESP 18; TEMP 36.9; O2SAT 93
--- NOTE | 2020-09-13 13:50 | P.SS_ITS ---
Short Stay Summary Providers Date of Admit/Discharge: 09/13/20 Attending Provider: Tico Ordonez MD Primary Care Provider: Jay Liu Chief Complaint: removal of lap band HPI History of Present Illness Arabella Raman is a 69 year old female had history of laparoscopic adjustable gastric band placement in outside facility many years ago, patient has been having worsening acid reflux with dental erosions secondary to the worsening acid reflux associated with a gastric band. Patient was counseled for explantation of gastric band. Review of Systems General: Reports: 10 or more systems reviewed and unremarkable except in HPI and below Home Meds/Allergies Home Medications and Allergies Home Medications Medication Instructions Recorded Confirmed Type hydrochlorothiazide 25 mg tablet 25 mg PO DAILY 08/05/19 09/12/20 History clonazepam 0.5 mg disintegrating 0.5 mg PO BID PRN tab 06/08/20 09/12/20 History tablet omeprazole 20 mg capsule,delayed 40 mg PO BID cap 06/08/20 09/12/20 History release diphenhydramine HCl [Benadryl] 25 mg PO BEDTIME PRN 07/24/20 09/12/20 History duloxetine 20 mg PO DAILY 07/24/20 09/12/20 History Allergies Allergy/AdvReac Type Severity Reaction Status Date / Time iron Allergy ADR-Vomitin Verified 09/12/20 13:18 g ketamine Allergy ADR-Agitate Verified 09/12/20 13:18 d morphine Allergy aggittion Verified 09/12/20 13:18 PFSH Acute PFSH: Medical History History of depression Hx of gastroesophageal reflux (GERD) Hx of multiple concussions Hx of primary hypertension Surgical History H/O total knee replacement History of appendectomy History of repair of ACL Hx of breast reduction, elective Hx of dilation and curettage Hx of laparoscopic gastric banding Hx of oral surgery Hx of tubal ligation Social History Smoking and tobacco status: never smoked Alcohol intake: current Alcohol intake frequency: few times a month History of recent travel: No Vitals/I&O/Wt Last Vital Signs Temp 98.4 F 09/13/20 11:00 Pulse 59 L 09/13/20 11:00 Resp 18 08/04/21 11:00 BP 144/77 09/13/20 11:00 Pulse Ox 93 09/13/20 11:00 09/12/20 09/13/20 09/13/20 22:59 06:59 14:59 Intake Total 160 / 160 60 / 220 1130 / 1130 Output Total 380 / 380 350 / 730 440 / 440 Balance -220 / -220 -290 / -510 690 / 690 Weight last 48 hrs Weight 198 lb Weight 198 lb Weight 198 lb Physical Exam Narrative: EXAM NARRATIVE: Patient is conscious alert oriented X3 BMI 31 Head and neck examination PERRLA no masses no cervical lymphadenopathy no jaundice Abdomen nontender except mildly at the incision sites. Otherwise dressing is intact nondistended soft no organomegaly guarding or rigidity/no signs of peritonitis, left-sided drain in place with serosanguineous output Urinary Catheter Management^: F: Cath Placed During This Visit: yes, but has since been removed by the nurse Urinary Catheter Date of Insertion: 09/12/20 Urinary Catheter Time of Insertion: 15:45 Date Urinary Catheter Removed: 09/12/20 Time Urinary Catheter Discontinued: 17:20 Hospital Course Hospital Course This is a pleasant 69 years old female patient undergone laparoscopic explantation of adjustable gastric band 09/12/2020. Patient was kept overnight for observation, continued to have stable vital signs and adequate urine output with minimal output per drain. Patient undergone upper GI study that showed no extravasation. And she has been tolerating p.o. intake. Pain is under control. Discharge Summary Patient undergone laparoscopic explantation of adjustable gastric band. And she maintained smooth postoperative recovery, continues to tolerate p.o. intake and will plan to discharge home today. The findings of the upper GI study was discussed in length and in depth with the patient, and I did explain for her that per endoscopic evaluation intraoperatively there was no evidence of ulceration. Patient also was educated about drain care. We will plan to have the patient follow-up with me at the bariatric surgery office in 10 days SSS Data Data Completed and Pending: Completed Studies During Hospitalization Category Date Time Status [place] upper GI gastr ografin [id number] Rout ine Exams 09/13/20 08:00 Completed Pending at discharge Category Date Time Status ES surgery / GI i mages Routine Exams 09/12/20 15:05 Taken Basic Metabolic P ansley [facility] 09/14/20 04:00 Uncollected Basic Metabolic P ansley [facility] 09/15/20 04:00 Uncollected Hemoglobin and He matocrit AM [facility] Lab 09/14/20 04:00 Uncollected Hemoglobin and He matocrit AM LABS Lab 09/15/20 04:00 Uncollected Pathology: Surgic al [PTH] Routine Pth 09/12/20 17:10 Received Addt'l Data from Hospital Stay: Upper GI study status post explantation of adjustable gastric band. 1. 2 areas of narrowing, one of the distal esophagus at the T10 level with possible ulceration, the other narrowing at the gastroesophageal junction unchanged. 2. Marked dilatation of the esophagus with very poor motility. 3. Normal stomach and duodenal bulb. Diagnoses at Discharge Discharge Diagnosis (1) History of removal of laparoscopic gastric banding device: Status: Resolved Discharge Plan Discharge Patient Disposition: Home Condition: Stable Prescriptions: New hydrocodone-acetaminophen 5-325 mg tablet 1 tab PO Q6H PRN (Reason: pain) Qty: 28 RF: 0 Continued hydrochlorothiazide 25 mg tablet 25 mg PO DAILY RF: 0 clonazepam 0.5 mg tablet,disintegrating 0.5 mg PO BID PRN (Reason: Anxiety) RF: 0 omeprazole 20 mg capsule,delayed release(DR/EC) 40 mg PO BID RF: 0 diphenhydramine HCl [Benadryl] 25 mg Capsule 25 mg PO BEDTIME PRN (Reason: Insomnia) RF: 0 duloxetine 20 mg capsule,delayed release(DR/EC) 20 mg PO DAILY RF: 0 Discharge Orders: Discharge Order (Routine); Ordered 09/13/20 Ordered By: Tico Ordonez Referrals: Tico Ordonez MD [Physician] - (Return to bariatric surgery office in 10 days) Discharge Diet: As Directed Discharge Activity: Limit activity as instructed Patient Instructions: Opioid Safety Activity Restrictions/Additional Instructions: 1. Patient can shower after 48 hours from surgery 2. Remove Band-Aids tomorrow and can shower, special attention to the drain care and teaching 3. Up and walking as tolerated 4. Do lift more than 5 pounds first 2 weeks after surgery and not more than 25 pounds 6 to 8 weeks after surgery. 5. Do not operate heavy machinery or drive while using pain medications. 6.Contact the office or return to the ER for worsening nausea vomiting fevers or chills, or noticing any redness around incision sites or discharge. 7. Raise the head of the bed 4-6 inches Frequent small meals through the day Avoid smoking or Chewing Tobacco Avoid excess coffee, tea, and other caffeinated beverages Avoid garments that fit tightly through the abdomen Avoid eating before going to sleep Avoid nonsteroidal anti-inflammatory drugs (NSAIDs) when possible Anti-reflux diet Anti-reflux medications as prescribed Emphasis on weight management Patient can advance to full liquid diet for today and tomorrow then start soft GI diet thereafter Attestations Medical Necessity Statement*: Observation status for perioperative care. Time Spent in Patient Care*: greater than 30 min Specific Discharge Activities: Specific discharge activities: educating patient Status at Discharge: Cognitive status at discharge: cognitively intact , Behavioral status at discharge: cooperative , Functional status at discharge: independent ambulation Overall status at discharge: patient is progressing back to baseline Quality Metrics Clinical Quality Measures: During this hospital stay, did patient experience: None Coding Level of Care Code Acute Ginseng Farmer for Ayla Cuellar Diagnoses History of removal of laparoscopic gastric banding device Z98.84
[2020-09-13 16:26] VITALS: BP 144/77; PULSE 59; RESP 18; TEMP 36.9; O2SAT 93
--- NOTE | 2020-09-13 16:26 | PC.NURSE ---
patient verbalizes understanding of discharge instructions, drain care, home medications, and follow up appointments. all current questions answered at this time.
== END 2020-09-13 16:27 | disposition home or self-care (01) ==
LOC: MEDSURG 19:33
PROVIDERS: Admitting Provider Surgery; PCP Family Medicine; Visit Provider Surgery
PROC: 0DP64CZ Removal of Extraluminal Device from Stomach, Percutaneous Endoscopic Approach (ICD-10-PCS; CPT 43772; principal; 2020-09-12 12:05)
PROC: 0DJ08ZZ Inspection of Upper Intestinal Tract, Via Natural or Artificial Opening Endoscopic (ICD-10-PCS; CPT 43235; 2020-09-12 12:05)
DX: K95.09 Other complications of gastric band procedure (principal); K21.9 Gastro-esophageal reflux disease without esophagitis; E66.01 Morbid (severe) obesity due to excess calories; Z68.31 Body mass index [BMI] 31.0-31.9, adult
CPT/HCPCS: 43772; 36415; 51702; 74240; 80048; 85014; 85018; 88300; 96365; 96372; 96374; C9113; C9290; G0378; J0330; J0610; J0690; J1100; J2270; J2405; J2704; J2710; J3010; J3490; J7030; Q9963

== ENCOUNTER → 2021-03-07 14:06 | Outpatient (BNVA) | payer MEDICARE, MEDICAID, SELFPAY | PROVIDERS: PCP Family Medicine; Visit Provider Specialist | DX: Z96.641 Presence of right artificial hip joint (principal) | CPT/HCPCS: 73523 ==

== ENCOUNTER 2021-06-27 12:42 | Outpatient (CLI) | payer MEDICARE, MEDICAID, SELFPAY ==
--- NOTE | 2021-06-27 12:57 | USCV_ITS ---
Arabella Raman Age: 70 Gender: F : 1950 Exam Date: 06/27/2021 13:19 Ordering Phys: Nilam Mary Technologist: MALIKA [place]am Location[place] [facility] [place]: Dyspnea on exertion BP: 138 / 69 HR: 82 Rhythm: Sinus Technical Quality: Technically difficult study MEASUREMENTS (Male / Female) Normal Values 2D ECHO LV Diastolic Diameter PLAX 4.5 cm 4.2 - 5.9 / 3.9 - 5.3 cm LV Systolic Diameter PLAX 3.2 cm IVS Diastolic Thickness 1.2 cm 0.6 - 1.0 / 0.6 - 0.9 cm IVS Systolic Thickness 2.0 cm LVPW Diastolic Thickness 1.6 cm 0.6 - 1.0 / 0.6 - 0.9 cm LVPW Systolic Thickness 2.4 cm LVOT Diameter 2.0 cm LV Ejection Fraction 2D Teich 57.2 % LA Diameter 2.8 cm Aorta at Sinotubular Diameter 2.4 cm M-MODE Aortic Annulus Diameter 3.5 cm LA Ao Ratio MM 0.8 MV E Point Septal Separation 1.3 cm DOPPLER AV Peak Velocity 127.0 cm/s LVOT Peak Velocity 86.0 cm/s AV Area Cont Eq vti 2.4 cm squared AV Area Cont Eq pk 2.2 cm squared MV Area PHT 5.8 cm squared Mitral E to A Ratio 0.9 MV E' Velocity 32.0 cm/s Mitral E to MV E' Ratio 14.5 Mitral E to LV E' Lateral Ratio 17.9 Mitral E to LV E' Septal Ratio 12.4 Right Atrial Pressure 8.0 mmHg PV Peak Velocity 130.0 cm/s FINDINGS Left Ventricle Technically limited quality echocardiogram because of poor ultrasonic windows. Grossly LV systolic function is normal. Right Ventricle Not well visualized Right Atrium Not visualized Left Atrium Not visualized Mitral Valve Grossly normal Aortic Valve Not visualized Tricuspid Valve Not visualized Pulmonic Valve Not visualized Pericardium Not visualized Aorta Not visualized IVC CONCLUSIONS Technically limited quality echocardiogram because of poor ultrasonic windows. Grossly LV systolic function is normal. Valvular structures are not well visualized. No comparison studies are available. For accuate assessment of LV function, recommend limited echocardiogram with contrast Jim Meraz MD (Electronically Signed) Final Date: 07 Jul 2021 22:58 S
[2021-06-27 17:27] LABS: Add Urine Microscopic? NO; Charge for UA Resulting for Rev
[2021-06-27 17:41] LABS: Bilirubin Urine Neg (Negative); Blood Urine Neg (Negative); Glucose Urine UA Norm (Normal); Ketones Urine Negative (Negative); Leukocyte Esterase Urine Negative (Negative); Nitrate Urine Negative (Negative); Protein Urine Neg (Negative); Urine Appearance Clear (CLEAR); Urine Color Yellow (Yellow); Urobilinogen Urine Norm (Negative); pH Urine 5 (5-7)
== END 2021-06-27 12:43 | disposition home or self-care (01) ==
LOC: RAD 12:45
PROVIDERS: PCP Family Medicine; Visit Provider Family Medicine
DX: R06.00 Dyspnea, unspecified (principal); Z79.899 Other long term (current) drug therapy
CPT/HCPCS: 81003; 87086; 93306

== ENCOUNTER → 2021-07-27 09:06 | Outpatient (BNVA) | payer MEDICARE, MEDICAID, SELFPAY | PROVIDERS: PCP Family Medicine; Visit Provider Surgery | DX: Z98.84 Bariatric surgery status (principal); R06.00 Dyspnea, unspecified; R19.00 Intra-abdominal and pelvic swelling, mass and lump, unspecified site; R14.0 Abdominal distension (gaseous) | CPT/HCPCS: 99213 ==

== ENCOUNTER 2021-08-07 12:09 | Outpatient (CLI) | payer MEDICARE, MEDICAID, SELFPAY ==
--- NOTE | 2021-08-07 13:30 | CT_ITS ---
WS: [id number] CT ABDOMEN AND PELVIS WITH CONTRAST HISTORY: r/o incisional hernia TECHNIQUE: Imaging performed of the abdomen and pelvis with IV contrast. Single phase imaging of the abdomen. Coronal and sagittal reformats are submitted. All CT scans at [facility] use at [address] one of these dose optimization techniques: automated exposure control; mA and/or kV adjustment per patient size (includes targeted exams where dose is matched to clinical indication); or iterative re construction. IV CONTRAST: Omnipaque 300; 95 mL IV. Oral contrast: Yes. DLP: 1257.29 mGy.cm COMPARISON: None available. Lower thorax: Lung bases are clear. . Mild cardiomegaly. No effusion. Moderate size hiatal hernia. Th ere are changes at the GE junction for lap band. Liver/biliary system: Normal size with no intrahepatic dilatation. Gallbladder: Normal. No gallstones or wall thickening. No pericholecystic fluid. Pancreas: Normal size pancreas and pancreatic duct. No adjacent inflammation. Spleen: Normal size spleen. No mass or infarct. Adrenal glands: Normal. Right kidney: Normal. Left kidney: Normal. Aorta: Mild atherosclerosis with no aneurysm. Lymphadenopathy: None. Free fluid: None. GI tract: Well-distended stomach. No small bowel obstruction. Prior appendectomy. No GI tract obstruc tion. Numerous diverticula throughout the colon beginning near the splenic flexure. No evidence for a cute diverticulitis. Abdominal wall: Defect in the abdominal wall musculature in a supraumbilical location. The orifice of the hernia measures 5.3 cm. Herniating omental fat. No umbilical hernia. Pelvis: No free fluid. Uterus is anteverted. Fat-containing mass in the RIGHT adnexa measures 5.0 x 4 .5 cm. Atrophic LEFT ovary as expected. Bones: L4 anterolisthesis by 2 mm. Bilateral hip arthroplasties. CT/CT abdomen pelvis w con* [id number] IMPRESSION: 1. Supraumbilical ventral abdominal wall hernia with an orifice measuring 5.3 cm. Omental fat herniating through the defect. 2. No umbilical hernia. 3. Fat-containing mass RIGHT adnexa consistent with a dermoid measuring 5.0 x 4.5 cm. 4. Prior cholecystectomy. 5. Diverticulosis without acute diverticulitis. 6. Prior appendectomy.
[2021-08-07 14:45] LABS: Blood Urea Nitrogen 8 mg/dL (8-23); Glomerular Filtration Rate 82.7 mL/min (90-130)
[2021-08-07] MEDS: iohexol 300 mg/mL 100 mL Btl IV (15:03)
[2021-08-07] MEDS: barium sulfate 450 mL Oral Susp PO (15:04)
== END 2021-08-07 12:10 | disposition home or self-care (01) ==
LOC: RAD 12:10
PROVIDERS: PCP Family Medicine; Visit Provider Surgery
DX: K43.9 Ventral hernia without obstruction or gangrene (principal); K57.90 Diverticulosis of intestine, part unspecified, without perforation or abscess without bleeding
CPT/HCPCS: 74177; 82565; 84520

== ENCOUNTER → 2021-08-31 12:59 | Outpatient (BNVA) | payer MEDICARE, MEDICAID, SELFPAY | PROVIDERS: PCP Family Medicine; Visit Provider Surgery | DX: K43.9 Ventral hernia without obstruction or gangrene (principal); N94.89 Other specified conditions associated with female genital organs and menstrual cycle | CPT/HCPCS: 99212 ==

== ENCOUNTER 2021-09-24 07:07 | Day surgery (SDC) | payer MEDICARE, MEDICAID, SELFPAY ==
[2021-09-21 12:09] VITALS: BMI 31.3
[2021-09-24] VITALS (14 sets, daily range): BP systolic 122–210; BP diastolic 75–154; PULSE 58–113; RESP 12–23; TEMP 36.1–36.6; O2SAT 90–95
[2021-09-24] MEDS: sodium chloride 0.9% 1,000 ML 30 ML IV (07:59)
--- NOTE | 2021-09-24 08:27 | W.PM.OPSUD ---
Surgery/Procedure H&P Update DATE OF PROCEDURE: September 24, 2021 DATE H&P PERFORMED: 08/31/20 CHANGES TO PREVIOUS DOCUMENTATION: none PREOP DIAGNOSIS: ventral hernia PLANNED PROCEDURE: Operation Date: 09/24/21 08:45 Proposed Procedures p laparascopic ventral hernia repair with mesh 08601,N94.89,K43.9(Not Applicable) - Aquiles Grier DO
[2021-09-24 08:30] LABS: Anion Gap 15.9 (5-19); Blood Urea Nitrogen 8 mg/dL (8-23); Calcium 8.6 mg/dL (8.5-10.5); Carbon Dioxide 29 mmol/L (22-29); Chloride 101 mmol/L (98-107); Creatinine Clr Calc Pharmacy 75.6633; Glucose 100 mg/dL (65-115); Osmolality Calculated 292 mOsm/kg (285-295); Potassium 3.9 mmol/L (3.5-5.1); Sodium 142 mmol/L (136-145)
--- NOTE | 2021-09-24 08:39 | P.ANESASSM_ITS ---
Pre-Anesthetic Assessment Height/Weight: Height 1.7 m Weight 90.718 kg Temp Pulse Resp BP Pulse Ox O2 Del Method 97.8 F 113 H 18 131/102 95 09/24/21 07:34 09/24/21 07:34 09/24/21 07:34 09/24/21 07:34 09/24/21 07:34 09/24/21 07:34 Preop Diagnosis: ventral hernia Operation Date: 09/24/21 08:45 Proposed Procedures p laparascopic ventral hernia repair with mesh 91491,N94.89,K43.9(Not Applicable) - Aquiles Grier DO Familial anesthetic complications: None Was Beta Greg taken within 24 hours: N/A Was Clonidine taken within 24 hours: N/A Last intake: Intake Last Liquid Date 09/23/21 Last Liquid Time 20:00 Last Solid Date 09/23/21 Last Solid Time 20:00 Social No alcohol and No tobacco Exam alert, oriented x 3 and clear to auscultation bilaterally irregular (sinus arrhythmia) Airway Submandibular: within normal limits Cervical ROM: within normal limits Mallampati: Class II Dentition: full CV/HEM Hypertension GI Gastroesophageal Reflux Disease Metabolic Morbid Obesity [facility] Osteoarthritis/DJD Neuropsych Anxiety and Depression Anesthetic Plan ASA status: 3 Anesthesia: General Medications/Allergies Home Medications Medication Instructions Recorded Confirmed Last Taken Type hydrochlorothiazide 25 mg tablet 25 mg PO DAILY 08/05/19 09/24/21 09/23/21 21:00 History clonazepam 0.5 mg disintegrating 0.5 mg PO BID PRN Anxiety 06/08/20 09/24/21 09/23/21 21:00 History tablet omeprazole 20 mg capsule,delayed 40 mg PO BID 06/08/20 09/24/21 09/23/21 21:00 History release diphenhydramine HCl 25 mg capsule 25 mg PO BEDTIME PRN Insomnia 07/24/20 09/24/21 09/23/21 09:00 History (Benadryl) duloxetine 20 mg capsule,delayed 20 mg PO DAILY 07/24/20 09/24/21 09/23/21 21:00 History release fluorouracil 5 % topical cream 1 applic topical BID 2 weeks #40 08/14/21 09/24/21 09/23/21 Rx grams Allergies Allergy/AdvReac Type Severity Reaction Status Date / Time iron Allergy ADR-Vomitin Verified 09/24/21 07:30 g morphine Allergy aggittion Verified 09/24/21 07:30 Current Medications Generic Name Dose Route Start Last Admin Trade Name Sandra PRN Reason Stop Dose Admin Sodium Chloride 1,000 mls @ 30 mls/hr 09/24/21 07:30 09/24/21 07:59 Sodium Chloride 0.9% IV 09/25/21 07:29 30 mls/hr .Q24H HAYLIE Administration PFSH Anesthesia Medical History History of depression Hx of gastroesophageal reflux (GERD) Hx of multiple concussions Hx of primary hypertension Surgical History H/O total knee replacement History of appendectomy History of esophagogastroduodenoscopy (EGD) 2020 History of repair of ACL Hx of bilateral hip replacements Hx of breast reduction, elective Hx of dilation and curettage Hx of laparoscopic gastric banding Hx of oral surgery Hx of tubal ligation Social History Smoking and tobacco status: never smoked Alcohol intake: current Alcohol intake frequency: few times a month History of recent travel: No Data Anesthesia : 09/24/21 07:55 BMP 09/24/21 07:55 Sodium 142 Potassium 3.9 Chloride 101 Carbon Dioxide 29 BUN 8 Creatinine 0.5 Glucose 100 Calcium 8.6 Cardiac Studies: Echocardiogram 06/27/21
[2021-09-24] MEDS: ceFAZolin 2,000 MG in sodium chloride 0.9% (plus) 50 ML 100 MG IV (08:40)
--- NOTE | 2021-09-24 09:44 | P.OP_ITS ---
Operative Report Date of procedure: September 24, 2021 Pre-op diagnosis: Preop Diagnosis incisional hernia Post-op diagnosis: same Procedure done: Laparoscopic repair of incisional hernia with mesh Implants: 15 cm round mesh Specimens removed/disposition: Hernia sac Surgeon: Dr. Aquiles Grier DO Anesthesia: General Estimated blood loss (mL): 5 Complications: None apparent Brief History: This is a 70 she has been having pain in the area as well as dyspnea on exertion. I made it very clear to her that repairing her hernia will not likely improve her dyspnea. However hernia repair is indicated. The risks and benefits were explained and documented.. Procedure: Patient was wheeled into the operative room and placed on the OR table in a supine position. Abdomen was inspected prepped and draped in usual sterile fashion. Time-out was performed and all present were in agreement. A 15 blade scalp was used to make a 5 millimeter incision left upper quadrant. A Veress n eedle was placed into the incision and intra-abdominal insufflation was brought to 15 millimeters of mercury. A 12 millimeter trocar was placed into the left lower quadrant. The energy but device was then used to cut out the hernia sac. The sac was then removed with an Endo Catch via the left lower quadrant port site. A 15 centimeter mesh was placed into the abdomen and brought up through the center of the hernia defect. The mesh was then tacked in place in a double crown fashion. The left lower quadrant port site was closed with an 0 Vicryl suture in a Hipolito-Estephanie in a [id number] fashion. Incisions were closed with 4 O Vicryl in a subcuticular interrupted fashion. Skin glue was applied. Patient tolerated the procedure well.
[2021-09-24] MEDS: HYDROmorphone 1 mg/mL INJ 1 mL 0.5 MG IVP (10:38)
[2021-09-24] MEDS: HYDROcodone-acetaminophen 7.5-325 mg Tablet 1 TAB PO (10:51)
--- NOTE | 2021-09-24 13:03 | ANE.PACU2 ---
Inpatient post-anesthesia follow up: Airway intact: Yes Vital signs: Temperature 97.8 F Pulse Rate 66 Respiratory Rate 18 Blood Pressure 143/86 Pulse Oximetry 93 Oxygen Delivery Me thod Room Air Oxygen Flow Rate 2 Fraction of Inspir ed Oxygen Hydration adequate: Yes Nausea and vomiting: No Pain level: 4 Mental status: Baseline
== END 2021-09-24 12:50 | disposition home or self-care (01) ==
PROVIDERS: Anesthesiology; PCP Family Medicine; Visit Provider Surgery
PROC: 0WQF4ZZ Repair Abdominal Wall, Percutaneous Endoscopic Approach (ICD-10-PCS; CPT 49654; principal; 2021-09-24 08:35)
DX: K43.2 Incisional hernia without obstruction or gangrene (principal); I10 Essential (primary) hypertension; K21.9 Gastro-esophageal reflux disease without esophagitis; E66.01 Morbid (severe) obesity due to excess calories; Z68.31 Body mass index [BMI] 31.0-31.9, adult; M19.90 Unspecified osteoarthritis, unspecified site; F41.9 Anxiety disorder, unspecified; F32.A Depression, unspecified
CPT/HCPCS: 49654; 80048; 88302; J0330; J1100; J1170; J1200; J2405; J2704; J2710; J3010; J3490; J3535; J7030

== ENCOUNTER → 2021-10-10 13:11 | Outpatient (BNVA) | payer MEDICARE, MEDICAID, SELFPAY | PROVIDERS: PCP Family Medicine; Visit Provider Surgery | DX: Z48.89 Encounter for other specified surgical aftercare (principal) | CPT/HCPCS: 99024 ==

== ENCOUNTER 2022-05-27 11:00 | Outpatient (CLI) | payer MEDICARE, MEDICAID, SELFPAY ==
--- NOTE | 2022-05-27 11:16 | USCV_ITS ---
Arabella Raman Age: 71 Gender: F : 1950 Exam Date: 05/27/2022 12:02 Ordering Phys: Franklyn Brown MD Technologist: Exam Location: [facility] – [place] Indication: sob BP: 142 / 75 HR: 77 Rhythm: Sinus Technical Quality: Adequate MEASUREMENTS (Male / Female) Normal Values 2D ECHO LV Diastolic Diameter PLAX 7.1 cm 4.2 - 5.9 / 3.9 - 5.3 cm LV Systolic Diameter PLAX 3.9 cm IVS Diastolic Thickness 1.4 cm 0.6 - 1.0 / 0.6 - 0.9 cm IVS Systolic Thickness 1.8 cm LVPW Diastolic Thickness 1.3 cm 0.6 - 1.0 / 0.6 - 0.9 cm LVPW Systolic Thickness 1.5 cm LVOT Diameter 2.1 cm LV Ejection Fraction 2D Teich 75.5 % LV Ejection Fraction MOD 2C 63.4 % LV Ejection Fraction 2C AL 65.8 % LA Diameter 4.3 cm M-MODE Aortic Annulus Diameter 4.0 cm LA Ao Ratio MM 1.1 MV E Point Septal Separation 1.7 cm DOPPLER AV Peak Velocity 182.0 cm/s LVOT Peak Velocity 48.7 cm/s AV Area Cont Eq vti 1.0 cm squared AV Area Cont Eq pk 0.9 cm squared MV Area PHT 5.0 cm squared Mitral E to A Ratio 0.8 MV E' Velocity 74.0 cm/s Mitral E to LV E' Septal Ratio 15.2 TR Peak Velocity 196.5 cm/s TR Peak Gradient 15.4 mmHg Right Atrial Pressure 3.0 mmHg Pulmonary Artery Systolic Pressu 18.4 mmHg RV Acceleration Time 0.1 s FINDINGS Left Ventricle Left ventricle is dilated. LV systolic function is grossly normal. Regional wall motion abnormalities cannot accurately be assessed because of poor ultrasonic windows. Grade 1 diastolic dysfunction. Right Ventricle Normal in size and function. Right Atrium Normal in size Left Atrium Normal in size Mitral Valve Structurally normal mitral valve. Mild to moderate mitral regurgitation. Aortic Valve Structurally normal aortic valve. No significant stenosis. Mild aortic regurgitation. Tricuspid Valve Mild tricuspid regurgitation. Pulmonary artery systolic pressure is normal. Pulmonic Valve Not well-visualized. Pericardium Normal Aorta Normal in size IVC Appears to be normal CONCLUSIONS LV systolic function is grossly normal. However accurate assessment of LV systolic function and regional wall motion abnormalities cannot be done because of poor ultrasonic windows. Recommend limited echocardiogram with contrast to better assess it. Mild to moderate mitral regurgitation. Mild aortic regurgitation Mild tricuspid regurgitation. Comparison with prior echo is not possible because of poor imaging quality. Jim Meraz MD (Electronically Signed) Final Date: 08 June 2022 15:20 S
== END 2022-05-27 11:01 | disposition home or self-care (01) ==
LOC: RAD 11:03
PROVIDERS: PCP Family Medicine; Visit Provider Family Medicine
DX: R06.09 Other forms of dyspnea (principal)
CPT/HCPCS: 93306

== ENCOUNTER 2023-05-12 09:51 | Outpatient (CLI) | payer MEDICARE, MEDICAID, SELFPAY ==
--- NOTE | 2023-05-12 10:00 | USCV_ITS ---
Arabella Raman Age: 72 Gender: F : 1950 Exam Date: 05/12/2023 10:07 Ordering Phys: Franklyn Brown MD Technologist: SHARATH [place] [facility] [place] Indication: WOOD BP: 130 / 89 HR: 236 Rhythm: Sinus Technical Quality: Adequate MEASUREMENTS (Male / Female) Normal Values 2D ECHO LV Diastolic Diameter PLAX 5.3 cm 4.2 - 5.9 / 3.9 - 5.3 cm IVS Diastolic Thickness 1.8 cm 0.6 - 1.0 / 0.6 - 0.9 cm IVS Systolic Thickness 1.7 cm LVPW Diastolic Thickness 1.2 cm 0.6 - 1.0 / 0.6 - 0.9 cm LVPW Systolic Thickness 1.3 cm LVOT Diameter 2.0 cm LV Ejection Fraction 2D Teich 34.0 % LA Diameter 4.8 cm RA Systolic Volume 4C AL 31.9 ml RA Systolic Volume 4C MOD 30.7 ml Aorta at Sinotubular Diameter 2.2 cm IVC Diameter 2.0 cm M-MODE LA Ao Ratio MM 1.2 AV Cusp Separation MM 2.0 cm DOPPLER AV Peak Velocity 112.0 cm/s LVOT Peak Velocity 82.0 cm/s AV Area Cont Eq vti 3.5 cm squared AV Area Cont Eq pk 2.4 cm squared MV Area PHT 5.7 cm squared Mitral E to A Ratio 4.2 TR Peak Velocity 127.5 cm/s TR Peak Gradient 6.5 mmHg TR Mean Velocity 75.0 cm/s TR Mean Gradient 2.7 mmHg TR Velocity Time Integral 19.7 cm Right Atrial Pressure 3.0 mmHg Pulmonary Artery Systolic Pressu 9.5 mmHg PV Peak Velocity 73.0 cm/s RV Ejection Time 0.3 s FINDINGS Left Ventricle Technically limited quality echocardiogram because of poor ultrasonic windows. Grossly LV systolic function is severely reduced. Regional wall motion abnormalities cannot accurately be assessed because of limited visualization. Right Ventricle Normal in size and function Right Atrium Normal in size Left Atrium Normal in size Mitral Valve Structurally normal mitral valve. Mild mitral regurgitation. Aortic Valve Structurally normal aortic valve. No significant stenosis. Mild aortic regurgitation. Tricuspid Valve Mild tricuspid regurgitation. Pulmonic Valve Not well visualized Pericardium Normal Aorta Normal in size IVC Appears to be normal CONCLUSIONS Technically limited quality echocardiogram because of poor ultrasonic windows. Grossly LV systolic function is severely reduced. Mild mitral regurgitation Mild aortic regurgitation Mild tricuspid regurgitation Compared to prior echocardiogram from 2022, there appears to be a significant decrease in LV systolic function. For accurate assessment of EF and wall motion, will recommend limited echocardiogram with contrast. Jim Meraz MD (Electronically Signed) Final Date: 16 May 2023 10:56 S
== END 2023-05-12 09:52 | disposition home or self-care (01) ==
LOC: RAD 09:51
PROVIDERS: PCP Family Medicine; Visit Provider Family Medicine
DX: R06.09 Other forms of dyspnea (principal); I08.3 Combined rheumatic disorders of mitral, aortic and tricuspid valves
CPT/HCPCS: 93306

== ENCOUNTER 2023-05-29 13:16 | Outpatient (CLI) | payer MEDICARE, MEDICAID, SELFPAY ==
[2023-05-29 13:40] VITALS: PULSE 59; RESP 18; O2SAT 94
[2023-05-29] MEDS: albuterol 2.5 mg/3 mL Neb INHALATION (13:40)
== END 2023-05-29 13:17 | disposition home or self-care (01) ==
LOC: RT 13:16
PROVIDERS: PCP Family Medicine; Visit Provider Family Medicine
DX: R06.09 Other forms of dyspnea (principal)
CPT/HCPCS: 94060; 94726; 94729

== ENCOUNTER → 2023-07-09 12:21 | Outpatient (BNVA) | payer MEDICARE, SELFPAY | PROVIDERS: PCP Family Medicine; Referring Provider Family Medicine; Visit Provider Internal Medicine Cardiovascular Disease | DX: R07.9 Chest pain, unspecified (principal); R06.02 Shortness of breath; R06.00 Dyspnea, unspecified; I42.0 Dilated cardiomyopathy; R94.31 Abnormal electrocardiogram [ECG] [EKG]; R03.0 Elevated blood-pressure reading, without diagnosis of hypertension; I44.0 Atrioventricular block, first degree; I44.7 Left bundle-branch block, unspecified | CPT/HCPCS: 80048; 83880; 93005; 99205 ==

== ENCOUNTER 2023-10-06 06:00 | Outpatient (CLI) | payer MEDICARE, SELFPAY | END 2023-10-06 15:43 | disposition home or self-care (01) | PROVIDERS: PCP Family Medicine; Visit Provider Internal Medicine Cardiovascular Disease | DX: I42.0 Dilated cardiomyopathy (principal); I11.0 Hypertensive heart disease with heart failure; I50.33 Acute on chronic diastolic (congestive) heart failure; R06.00 Dyspnea, unspecified | CPT/HCPCS: 99214 ==

== ENCOUNTER 2023-10-20 11:09 | Outpatient (CLI) | payer MEDICARE, SELFPAY ==
[2023-10-20 11:57] LABS: Anion Gap 14.6 (5-19); Blood Urea Nitrogen 13 mg/dL (8-23); Calcium 9.2 mg/dL (8.5-10.5); Carbon Dioxide 31 mmol/L (22-29); Chloride 99 mmol/L (98-107); Glucose 107 mg/dL (65-115); NT Pro B Type Natriuretic Pept 282 pg/mL (0-125); Osmolality Calculated 291 mOsm/kg (285-295); Potassium 4.6 mmol/L (3.5-5.1); Sodium 140 mmol/L (136-145)
== END 2023-10-20 11:10 | disposition home or self-care (01) ==
LOC: LAB 11:10
PROVIDERS: PCP Family Medicine; Visit Provider Internal Medicine Cardiovascular Disease
DX: R06.02 Shortness of breath (principal)
CPT/HCPCS: 36415; 80048; 83880

== ENCOUNTER → 2023-11-11 14:01 | Outpatient (BNVA) | payer MEDICARE, SELFPAY | PROVIDERS: PCP Family Medicine; Visit Provider Nurse Practitioner Family | DX: L57.0 Actinic keratosis (principal); L56.8 Other specified acute skin changes due to ultraviolet radiation; B35.3 Tinea pedis; F42.4 Excoriation (skin-picking) disorder; L28.0 Lichen simplex chronicus; L57.8 Other skin changes due to chronic exposure to nonionizing radiation; Z85.828 Personal history of other malignant neoplasm of skin | CPT/HCPCS: 17000; 17110; 99214 ==

== ENCOUNTER → 2024-01-14 11:02 | Outpatient (BNVA) | payer MEDICARE, SELFPAY | PROVIDERS: PCP Family Medicine; Visit Provider Nurse Practitioner Family | DX: R06.00 Dyspnea, unspecified (principal); I50.33 Acute on chronic diastolic (congestive) heart failure; I42.0 Dilated cardiomyopathy; R79.89 Other specified abnormal findings of blood chemistry; I42.8 Other cardiomyopathies; I11.0 Hypertensive heart disease with heart failure | CPT/HCPCS: 99214 ==

== ENCOUNTER 2024-02-06 07:43 | Outpatient (CLI) | payer MEDICARE, SELFPAY ==
--- NOTE | 2024-02-06 | ECG_ITS ---
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 Interpretive Statements Lung unchanged pre/post procedure; Intraprocedure shortess of breath; Symptoms resoled by discharge PROCEDURE: At the baseline, the EKG revealed normal sinus rhythm with a first-degree AV block. Poor R wave progression. Nonspecific EKG changes in the high lateral leads. Minimal left axis deviation.. The baseline heart was 66 bpm with a blood pressue of 113/70 mm of Hg Lexiscan was infused over a period of 20 seconds. A total of 0.4 milligrams of Lexiscan was infused. The stress phase was continued for a total of 5 minutes. Heart rate at the end of the stress phase was 75 bpm with a blood pressure 117/69 mm of Hg. The EKG at the peak infusion revealed no significant changes. Occasional PVCs were noted on the monitor Sestamibi was injected 20 seconds after the Lexiscan infusion. Heart rate at the end of the recovery phase was 70s to bpm with a blood pressure of 128/72mm of Hg. CONCLUSION: 1. No significant EKG changes with the LexiScan infusion 2. No LexiScan induced chest pain. Occasional Lexiscan induced PVCs were noted 3. Normal blood pressure and heart rate response 4. Sestamibi/sestamibi perfusion scan pending; see separate report. Electronically Signed On 02-06-2024 16:44:33 AGENCY MANAGER by Mahesh Mane M.D. [email or web address]
[2024-02-06 08:30] VITALS: BMI 43.4
--- NOTE | 2024-02-06 08:31 | NMCV_ITS ---
NM olivier perf SPECT r/s* [id number] Arabella Raman Age: 73 Gender: F : 1950 Exam Date: 02/06/2024 09:06 Ordering Phys: Mahesh Mane MD ([email or web address]) Technologist: JOSEE Nevarez Exam Location: [facility] Indications: cp STRESS TEST [facility] IMAGE PROTOCOL Rest/Stress 1 Lexiscan Day Radiopharmaceutical Dose (mCi) Administration Site Administered by Rest: Tc-99m 10.9 IV Adri Meeks RESUME SPECIALIST Sestamibi Stress:Tc-99m 33 IV Adri Meeks, RESUME SPECIALIST Sestamibi Rest: 06-Feb-2024 60 Discovery 630 Stress: 06-Feb-2024 30 Discovery 630 0.4mg Lexiscan. Supine position only as patient was unable to lay prone. SPECT RESULTS Technical Quality: Good Raw Data Analysis: Normal Image Corrections: No attenuation or motion correction applied Summed Stress Score: 0 Summed Rest Score: 1 Summed Difference Score: 0 PERFUSION FINDINGS Patchy areas of slightly decreased tracer uptake were noted in the anteroseptal and inferolateral regions. No significant reversibility was noted in these regions. FUNCTIONAL RESULTS (calculated via Gated SPECT) Stress Image LV EF (%): 43 Stress EDV (mL):176 TID: 1.26 Stress ESV (mL):101 FUNCTIONAL FINDINGS: Segmental wall motion analysis revealing mild diffuse hypokinesia left ventricle. Moderately dilated LV cavity. Elevated transient ischemic dilatation ratio 1.26 IMPRESSIONS 1. Myocardial perfusion imaging revealing patchy areas of persistent decreased tracer uptake in the anteroseptal and inferolateral regions, most likely her presentation artifact. 2. Diminished LV ejection fraction of 43%. 3. LV wall motion analysis revealed mild diffuse hypokinesia left-ventricular 4. Moderately dilated LV cavity. 5 . Elevated transient ischemic dilatation ratio of 1.26 may suggest endocardial ischemia. 6 A nonischemic form of cardiomyopathy also is a consideration. Clinical correlation is recommended Dr Mahesh Mane MD [facility] (Electronically Signed) Final Date: 08 February 2024 17:16 S
--- NOTE | 2024-02-06 08:52 | USCV_ITS ---
Arabella Raman Age: 73 Gender: F : 1950 Exam Date: 02/06/2024 10:35 Ordering Phys: Zara Berman Technologist: CT Exam Location: [facility] [place] Indication: sob,cad BP: 132 / 93 HR: 65 Rhythm: Sinus Technical Quality: Adequate MEASUREMENTS (Male / Female) Normal Values 2D ECHO LVOT Diameter 2.0 cm LV Ejection Fraction MOD 4C 47.3 % LV Ejection Fraction MOD 2C 66.5 % LV Ejection Fraction 2C AL 66.9 % LA Diameter 3.7 cm RA Systolic Volume 4C AL 76.1 ml RA Systolic Volume 4C MOD 74.2 ml LA Sys Volume AL 60.8 cm cubed LA Sys Volume Index AL 24.3 cm cubed/m squared Aorta at Sinotubular Diameter 2.8 cm M-MODE LA Ao Ratio MM 1.2 AV Cusp Separation MM 2.2 cm DOPPLER AV Peak Velocity 146.0 cm/s LVOT Peak Velocity 85.0 cm/s AV Area Cont Eq vti 2.3 cm squared AV Area Cont Eq pk 1.9 cm squared MV Peak Velocity 79.0 cm/s MV Area PHT 3.0 cm squared Mitral E to A Ratio 0.8 TV Peak E Velocity 56.0 cm/s PV Peak Velocity 114.0 cm/s FINDINGS Left Ventricle Normal left ventricular size and systolic function, EF of 55%.. Mild left ventricular hypertrophy. No regional wall motion abnormalities. (Echo contrast - Optison was used to delineate the endocardium and to estimate the LV ejection fraction) Right Ventricle The right ventricle is normal in size and function. Right Atrium The right atrium is normal in size. Left Atrium Normal left atrial size. Mitral Valve Thickened mitral valve. Aortic Valve Mild aortic valve regurgitation. Tricuspid Valve Could not be visualized well. No gross abnormalities noted Pulmonic Valve Pulmonic valve not well visualized. Pericardium Normal pericardium without effusion. Aorta Normal ascending aorta dimension. IVC The inferior vena cava appears normal. CONCLUSIONS Normal left ventricular size and systolic function, EF of 55%.. Mild left ventricular hypertrophy. No regional wall motion abnormalities. (Echo contrast - Optison was used to delineate the endocardium and to estimate the LV ejection fraction). Thickened mitral valve. Mild aortic valve regurgitation. There is no pericardial effusion. Comparison with the previous study is difficult because of the difference in the technical quality. Dr Mahesh Mane MD [facility] (Electronically Signed) Final Date: 12 February 2024 08:52 S
[2024-02-06] MEDS: regadenoson 0.4 Mg/5 ml Syringe IVP (09:34)
[2024-02-06 09:46] VITALS: BP 128/72; PULSE 73
[2024-02-06] MEDS: perflutren protein-a microsphr 0.22 mg/mL SDV 3 mL IV (11:14)
== END 2024-02-06 07:44 | disposition home or self-care (01) ==
PROVIDERS: PCP Family Medicine; Visit Provider Internal Medicine Cardiovascular Disease
DX: I50.33 Acute on chronic diastolic (congestive) heart failure (principal); R93.1 Abnormal findings on diagnostic imaging of heart and coronary circulation; R07.9 Chest pain, unspecified; I51.7 Cardiomegaly
CPT/HCPCS: 36415; 78452; 93017; 96374; 96375; A9500; C8929; J2785

== ENCOUNTER 2024-11-01 18:30 | Emergency (ER) | payer MEDICARE, SELFPAY ==
[2024-11-01 18:32] VITALS: BP 166/91; PULSE 74; RESP 20; TEMP 36.3; O2SAT 90
--- OUTSIDE RECORDS SUMMARY | 2024-11-01 18:38 | XMS_ITS | Clinical Summary ---
Author Organization [facility] Address [address] [facility] [address] [place] [address] Care Team Providers Care Plate Shear Operator Name Role Phone Unavailable Primary Care Provider Unavailabl e Allergies Active Allergy Reactions Criticality Noted Date Comments Opioids - Morphine Analogues Hallucination Low 08/10 Medications power wheelchairIndicati ons:Primary osteoarthritis involving multiple joints,Chronic left hip pain,History of left knee replacement,Histor y of traumatic brain injury,Bilateral primary osteoarthritis of hip,Chronic pain syndrome,Post concussive syndrome,Gait instability,Multip le falls ScooterFace to Face completed within 6 months: yesLength of Need: 99 months 1 Each 0 08/06/19 20 Active naproxen sodium (ALEVE) 220 mg Tablet Take 220 mg by mouth every 4 hours as needed for Pain, Moderate. 08/22/19 18 Active carbamide peroxide (Debrox) 6.5 % DropsIndications:B ilateral impacted cerumen Administer 5 Drops in both ears 2 times daily. 7.5 mL 11/13/19 22 Active albuterol sulfate HFA 90 mcg/actuation aerosol inhalerIndications :Bilateral impacted cerumen INHALE 2 PUFFS BY MOUTH EVERY 6 HOURS NEEDED FOR SHORTNESS OF BREATH 9 Gram 1 03/11/19 23 Active DULoxetine (CYMBALTA) 20 mg Capsule, Delayed Release(E.C.)Indic ations:USHA (generalized anxiety disorder),Recurren t major depressive disorder, in partial remission Take 1 capsule by mouth twice daily 180 Capsule 03/11/19 23 Active clonazePAM (KlonoPIN) 0.5 mg TabletIndications: USHA (generalized anxiety disorder),Recurren t major depressive disorder, in partial remission Take 1 tablet by mouth twice daily as needed for anxiety 60 Tablet 04/09/19 23 Active omeprazole (PriLOSEC) 40 mg Capsule, Delayed Release(E.C.)Indic ations:Gastroesoph ageal reflux disease, unspecified whether esophagitis present Take 1 capsule by mouth once daily 30 Capsule 08/20/19 23 Active hydroCHLOROthiazid e 25 mg tabletIndications: HTN (hypertension), benign Take 1 tablet by mouth once daily 90 Tablet 10/18/19 23 Active triamcinolone acetonide (KENALOG) 0.1 % LotionIndications: Intrinsic eczema APPLY LOTION TOPICALLY TO AFFECTED AREA TWICE DAILY 60 mL 10/18/19 23 Active Symbicort 160-4.5 mcg/actuation HFA Aerosol InhalerIndications :Dyspnea on exertion Inhale 2 puffs by mouth twice daily 11 Gram 12/14/19 23 Active Active Problems Problem Noted Date Diagnosed Date Morbid obesity with body mass index of 40.0-49.9 02/22/2021 Intrinsic eczema 06/01/2020 S/P bariatric surgery 02/18/2020 Recurrent major depressive disorder, in partial remission 12/02/2019 Post concussive syndrome 08/06/2019 Gait instability 08/06/2019 Chronic pain syndrome 12/03/2018 Stress incontinence 04/13/2018 GERD (gastroesophageal reflux disease) 9 Bilateral primary osteoarthritis of hip 09/05/19 18 HTN (hypertension), benign 09/04/2017 Varicose veins of both lower extremities 018 History of left knee replacement 08/21/2017 History of traumatic brain injury 08/21/2017 Dental caries 08/21/2017 USHA (generalized anxiety disorder) 08/21/2017 Primary osteoarthritis involving multiple joints 08/21/2017 Chronic left hip pain 08/21/2017 Resolved Problems Problem Noted Date Diagnosed Date Resolved Date Mild episode of recurrent ma verito depressive disorder 08/21/2017 12/02/2019 Immunizations Immunization Administration Dates Next Due (COMRINATY 2024-)(12YR UP) COVID-19 VACCINE, MRNA (PF)30 MCG/0.3 ML, IM SYRINGE 11/13/2023 ([email or web address])(12 YR UP) COVID-19 VACCINE - EMERGENCY USE AUTHORIZATION, MRNA, [id number](PF) 30 MCG/0.3 ML IM SUSP 06/06/2021,11/23/2020,03/31/2020,03/02 (PREVNAR 20)(6 WKS UP) PNEUM OCOCCAL CONJUGATE VACCINE 20-VALENT (PCV20), POLYSACCHARIDE [id number] CONJUGATE, ADJUVANT 0.5 ML (PF) IM 11/13/2023 (SHINGRIX)(50 YRS UP) ZOSTER VACCINE RECOMBINANT, 0.5 ML, IM 10/28/2019,12/11/2018 (SPIKEVAX 5-)(12YR UP) COVID-19 VACCINE, MRNA (PF)50 MCG/0.5 ML, IM SYRINGE 12/21/2022 INFLUENZA VACCINE HIGH DOSE QUADRIVALENT 65 YR UP PF IM 11/13/2023,11/12/2021 Influenza Seasonal Unspecifi ed Formulation IM 11/23/2020,10/28/2019 Influenza Vaccine High Dose 65+ Yrs IM 9 Pneumococcal 13-hannah Conj Vac c Patient Supplied 12/11/2018 Social History Tobacco Use Types Packs/Day Years Used Date Smoking Tobacco: Never Smokeless Tobacco: Never Alcohol Use Standard Drinks/Week Comments Yes 1 (1 standard drink = 0.6 oz pur e alcohol) Social Connections Answer Date Recorded In a typical week, how many times do you talk on the phone with family, friends, or neighbors? Three times a week 12/02/2019 How often do you get togethe r with friends or relatives? Three times a week 12/02/2019 How often do you attend chur or congregational services? Never 12/02/2019 Do you belong to any clubs o r organizations such as episcopalian groups, unions, fraternal or athletic groups, or school groups? Yes 12/02/2019 Attends Club or Organization Meetings Not on erna e 12/02/2019 Marital Status Not on file 12/02/2019 Financial Resource Strain Answer Date R ecorded How hard is it for you to pa y for the very basics like food, housing, medical care, and heating? Very hard 02/22/2021 Food Insecurity Answer Date Recorded In the past 12 months, have you worried that your food would run out before you had money to buy more? Sometimes true 2021 In the past 12 months, did y ou run out of food and didn't have money to buy more? Sometimes true 02/22/2021 Transportation Needs Answer Date Record ed In the past 12 months, has l ack of transportation kept you from medical appointments or from getting medications? Yes 02/22/2021 Lack of Transportation (Non-Medical) Not on file 02/22/2021 Comments No Sex and Gender Information Value Date Recorded Sex Assigned at Not on file Legal Sex Female 9:51 AM HABITAT BIOLOGIST Gender Identity Not on file Sexual Orientation Not on file Last Filed Vital Signs Vital Sign Reading Time Taken Comments Blood Pressure 119/70 11/12/2021 1:17 PM CDT Pulse 89 11/12/2021 1:17 PM CDT Temperature 35.6 C (96 F) 11/12/2021 1:17 PM CDT Respiratory Rate 22 11/12/2021 1:17 PM CDT Oxygen Saturation 97% 11/12/2021 1:17 PM CDT Inhaled Oxygen Concentration - - Weight 119.4 kg (263 lb 3.2 oz) 022 10:11 AM CDT Height 170.2 cm (5' 7 ) 11/15/2021 10:1 1 AM CDT Body Mass Index 41.22 11/15/2021 10:11 AM CDT Plan of Treatment Health Maintenance Due Date Last Done Comments DTAP/TDAP/TD VACCINES (1 - Tdap) 1969 BREAST CANCER SCREENING 1990 COLORECTAL SCREENING 10/21/1995 FIT-DNA Q 3 years 10/21/1995 Flex Sig/CT Colonography Q 5 years 10/21/1995 RSV VACCINE (60+ or ) (1 - Risk 60-74 years 1-dose series) 2010 OSTEOPOROSIS SCREENING 10/21/2015 Colorectal Cancer Screening 03/14/2021 FIT/FOBT Q 1 year 03/14/2021 03/14/2020 INFLUENZA VACCINE (#1) 2024 , 11/12/2021, 11/23/2020, Additional history exists COVID-19 Vaccine (2023-2 5 season) 2024 11/13/2023, 12/21/2022, 06/06/2021, Additional history exists ZOSTER VACCINE Completed 10/28/2019, 12/11/2018 PNEUMOCOCCAL VACCINE 50+ YEARS Completed 11/13/2023 , 12/11/2018 Procedures Procedure Name Priority Date/Time Associated Diagnosis Comments OCCULT BLOOD IMMUNOASSAY, COLORECTAL SCREEN Routine 03/14/2020 8:31 AM HABITAT BIOLOGIST from Last 3 Months or Most Recently Relevant to Health Maintenance Results * OCCULT BLOOD IMMUNOASSAY, COLORECTAL SCREEN (03/14/2020 8:31 AM HABITAT BIOLOGIST) OCCULT BLOOD, STOOL Negative Negative 03/15/2020 10:49 AM HABITAT BIOLOGIST [facility] Stool STOOL SPECIMEN / Unknown Collection / Unknown 03/14/2020 8:31 AM HABITAT BIOLOGIST 03/14/2020 8:35 PM HABITAT BIOLOGIST Jay Liu MD BODY FLUIDS AND STOOLS Fi nal Result [facility] CLIA# [id number] [address] [place] [address] from Last 3 Months or Most Recently Relevant to Health Maintenance Insurance MEDICAID [place] [facility] [employer] ADV HMO [id number]
--- OUTSIDE RECORDS SUMMARY | 2024-11-01 18:38 | XMS_ITS | Clinical Summary ---
Author Organization [facility] Address [address] [facility] [address] [place] [address] Care Team Providers Care Show Design Supervisor Name Role Phone Jay Liu MD Primary Care Provider [phone] Allergies Active Allergy Reactions Criticality Noted Date Comments Opioids - Morphine Analogues Hallucination Low 08/10 Medications naproxen sodium (ALEVE) 220 mg Tablet Take 220 mg by mouth every 4 hours as needed for Pain, Moderate. Active power wheelchairIndicati ons:Primary osteoarthritis involving multiple joints,Chronic left hip pain,History of left knee replacement,Histor y of traumatic brain injury,Bilateral primary osteoarthritis of hip,Chronic pain syndrome,Post concussive syndrome,Gait instability,Multip le falls Scooter Face to Face completed within 6 months: yes Length of Need: 99 months 1 Each 0 Active triamcinolone acetonide (KENALOG) 0.1 % LotionIndications: Intrinsic eczema Apply to affected area 2 times daily. 60 mL 11 1 Active hydroCHLOROthiazid e 25 mg tabletIndications: HTN (hypertension), benign Take 1 Tablet (25 mg) by mouth daily. 90 Tablet 3 1 Active famotidine (PEPCID) 40 mg tabletIndications: Gastroesophageal reflux disease without esophagitis Take 1 Tablet (40 mg) by mouth daily. 60 Tablet 5 1 Active clonazePAM (KlonoPIN) 0.5 mg TabletIndications: USHA (generalized anxiety disorder),Recurren t major depressive disorder, in partial remission Take 1 Tablet (0.5 mg) by mouth 2 times daily as needed for Anxiety. 60 Tablet 5 1 Active DULoxetine (Cymbalta) 20 mg Capsule, Delayed Release(E.C.) Take 1 Capsule (20 mg) by mouth daily. 30 Capsule 5 1 Active omeprazole (PriLOSEC) 40 mg Capsule, Delayed Release(E.C.)Indic ations:Gastroesoph ageal reflux disease Take 1 Capsule (40 mg) by mouth 2 times daily. 60 Capsule 5 1 Active Active Problems Problem Noted Date Diagnosed Date Intrinsic eczema 06/01/2020 S/P bariatric surgery 02/18/2020 Recurrent major depressive disorder, in partial remission 12/02/2019 Post concussive syndrome 08/06/2019 Gait instability 08/06/2019 Chronic pain syndrome 12/03/2018 Stress incontinence 04/13/2018 GERD (gastroesophageal reflux disease) 9 Bilateral primary osteoarthritis of hip 09/05/19 18 HTN (hypertension), benign 09/04/2017 Varicose veins of both lower extremities 018 Dental caries 08/21/2017 USHA (generalized anxiety disorder) 08/21/2017 Primary osteoarthritis involving multiple joints 08/21/2017 Chronic left hip pain 08/21/2017 History of left knee replacement 08/21/2017 History of traumatic brain injury 08/21/2017 Resolved Problems Problem Noted Date Diagnosed Date Resolved Date Mild episode of recurrent ma verito depressive disorder 08/21/2017 12/02/2019 Immunizations Immunization Administration Dates Next Due (PFIZER)(12 YR UP) COVID-19 VACCINE - EMERGENCY USE AUTHORIZATION, MRNA, [id number](PF) 30 MCG/0.3 ML IM SUSP 03/31/2020,03/02/2020 (SHINGRIX)(50 YRS UP) ZOSTER VACCINE RECOMBINANT, 0.5 ML, IM 10/28/2019,12/11/2018 Influenza Seasonal Unspecified Formulation IM Influenza Vaccine High Dose 65+ Yrs IM 9 Pneumococcal 13-hannah Conj Vacc Patient Supplied 1 02/10/2018 Social History Tobacco Use Types Packs/Day Years [...] 12/02/2019 How often do you attend chur ch or jewish services? Never 12/02/2019 Do you belong to any clubs o r organizations such as mu-ism groups, unions, fraternal or athletic groups, or school groups? Yes 12/02/2019 Attends Club or Organization Meetings Not on erna e 12/02/2019 Marital Status Not on file 12/02/2019 Financial Resource Strain Answer Date R ecorded How hard is it for you to pa y for the very basics like food, housing, medical care, and heating? Very hard 12/02/2019 Food Insecurity Answer Date Recorded Within the past 12 months, y ou worried that your food would run out before you got the money to buy more. Often true 12/02/19 20 Within the past 12 months, t he food you bought just didn't last and you didn't have money to get more. Often true 12/02/2019 Transportation Needs Answer Date Record ed In the past 12 months, has l ack of transportation kept you from medical appointments or from getting medications? No 11/11 In the past 12 months, has l ack of transportation kept you from meetings, work, or from getting things needed for daily living? No 12/02/2019 Education Answer Date Recorded What is the highest level of school you have completed or the highest degree you have received? 12th grade 12/02/2019 Comments No Sex and Gender Information Value Date Recorded Sex Assigned at Not on file Legal Sex Female 12:29 PM CDT Gender Identity Not on file Sexual Orientation Not on file Last Filed Vital Signs Vital Sign Reading Time Taken Comments Blood Pressure 124/82 06/01/2020 11:25 AM CDT Pulse 94 06/01/2020 11:25 AM CDT Temperature 36.7 C (98.1 F) 06/01/2020 11:25 AM CDT Respiratory Rate 16 06/01/2020 11:25 AM CDT Oxygen Saturation 96% 06/01/2020 11:25 AM CDT Inhaled Oxygen Concentration - - Weight 98.4 kg (217 lb) 06/01/2020 11:25 AM CDT Height 170.2 cm (5' 7 ) 06/01/2020 11:25 AM CDT Body Mass Index 33.99 06/01/2020 11:25 AM CDT Plan of Treatment Health Maintenance Due Date Last Done Comments FIT/ DNA Q 3 YEARS (AUTO ORDER) 1968 FLEX SIG/CT COLONOGRAPHY Q 5 YEARS (AUTO ORDER) 1968 DTAP/TDAP/TD VACCINES (1 - Tdap) 1969 BREAST CANCER SCREENING 1990 COLORECTAL CANCER SCREENING (AUTO ORDER) 10/21/1995 COLORECTAL SCREENING 10/21/1995 FIT-DNA Q 3 years 10/21/1995 Flex Sig/CT Colonography Q 5 years 10/21/1995 OSTEOPOROSIS SCREENING 10/21/2015 PNEUMOCOCCAL VACCINE 50+ YEA RS (2 of 2 - PCV20 or PCV21) 12/12/2019 12/11/2018 Colorectal Cancer Screening (AUTO ORDER) 03/14/2021 Colorectal Cancer Screening 03/14/2021 FIT/FOBT Q 1 YEAR (AUTO ORDER) 03/14/2021 03/14/2020 FIT/FOBT Q 1 year 03/14/2021 03/14/2020 [place] Prev entative Visit/Annual Wellness Visit 02/11/2024 12/02/2019 INFLUENZA VACCINE (#1) 2024 10/28/2019, 2018 COVID-19 Vaccine (3 - season) 2024, 03/02/2020 RSV VACCINE (60+ or ) (1 - 1-dose 75+ series) 2025 ZOSTER VACCINE Completed 10/28/2019, 12/11/2018 Procedures Procedure Name Priority Date/Time Associated Diagnosis Comments OCCULT BLOOD IMMUNOASSAY, COLORECTAL SCREEN Routine 03/14/2020 8:31 AM VENEER TAPING MACHINE OPERATOR Medicare annual wellness visit, initial Screening for colon cancer from Last 3 Months or Most Recently Relevant to Health Maintenance Results * OCCULT BLOOD IMMUNOASSAY, COLORECTAL SCREEN (03/14/2020 8:31 AM VENEER TAPING MACHINE OPERATOR) OCCULT BLOOD, STOOL Negative Negative 03/15/2020 10:49 AM VENEER TAPING MACHINE OPERATOR [facility] Stool STOOL SPECIMEN / Unknown Collection / Unknown 03/14/2020 8:31 AM VENEER TAPING MACHINE OPERATOR 03/14/2020 8:35 PM VENEER TAPING MACHINE OPERATOR us Jay Liu MD BODY FLUIDS AND STOOLS Fi nal Result [facility]# [id number] [address] [place] [address] from Last 3 Months or Most Recently Relevant to Health Maintenance Insurance MEDICAID [place] Care Teams Show Design Supervisor Relationship Specialty Start Date End Date Jay Liu MD [address] [facility] [address] [place] [id number] PCP - General Family Practice 09/04/17
--- OUTSIDE RECORDS SUMMARY | 2024-11-01 18:38 | XMS_ITS | Encounter Summary ---
Author Organization [facility] Address [address] [place] [address] Care Team Providers Care Header Operator Name Role Phone Jay Liu MD Primary Care Provider [phone] Encounter Details Date Type Department Care Team (Latest Contact Info) Description 04/13/2018 Ancillary Orders [facility] [place] [address] [address] Jay Liu MD [address] [address] Bilateral primary osteoarthritis of hip Social History Tobacco Use Types Packs/Day Years Used Date Smoking Tobacco: Never Smokeless Tobacco: Never Alcohol Use Standard Drinks/Week Comments Yes 1 (1 standard drink = 0.6 oz pur e alcohol) Comments No Sex and Gender Information Value Date Recorded Sex Assigned at Not on file Legal Sex Female 12:29 PM CDT Gender Identity Not on file Sexual Orientation Not on file documented as of this encounter Plan of Treatment Not on file documented as of this encounter Results * XR HIPS BILATERAL 3-4 VIEWS (04/13/2018 4:23 PM BED AND BREAKFAST COOK) Anatomical Region Laterality Modality Lower Extremity Computed Radiogr aphy 04/13/2018 4:29 PM BED AND BREAKFAST COOK Impressions 04/14/2018 11:31 AM BED AND BREAKFAST COOK IMPRESSION: Please see below. Exam: XR HIPS BILATERAL 3-4 VIEWS Date/Time of Exam: 04/13/2018 4:23 PM Reason For Exam: See Diagnosis. Diagnosis: Bilateral primary osteoarthritis of hip. Comparison: None FINDINGS: Frontal and frog-leg lateral projections the bilateral hips show severe osteoarthrosis bilaterally with near complete obliteration of joint space, prominent subchondral urination and cyst formation and also osteophytosis. No acute fracture or dislocation. Mild osteopenia. IMPRESSION: Severe bilateral osteoarthrosis. Narrative Procedure Note Vadim Zabala - 04/14/2018 IMPRESSION: Please see below. Exam: XR HIPS BILATERAL 3-4 VIEWS Date/Time of Exam: 04/13/2018 4:23 PM Reason For Exam: See Diagnosis. Diagnosis: Bilateral primary osteoarthritis of hip. Comparison: None FINDINGS: Frontal and frog-leg lateral projections the bilateral hips show severe osteoarthrosis bilaterally with near complete obliteration of joint space, prominent subchondral urination and cyst formation and also osteophytosis. No acute fracture or dislocation. Mild osteopenia. IMPRESSION: Severe bilateral osteoarthrosis. Jay Liu MD DIAGNOSTIC IMAGING ORDERA BLES Final Result documented in this encounter Visit Diagnoses Diagnosis Bilateral primary osteoarthritis of hip Bilateral primary osteoarthritis of hip documented in this encounter Additional Health Concerns Assessment Noted Time PHQ-9 Depression Total Score: 1 09/05/19 18 4:00 PM CDT documented as of this encounter Care Teams Header Operator Relationship Specialty Start Date End Date Jay iLu MD [address] [facility] [address] [place] [id number] PCP - General Family Practice 09/04/17 documented as of this encounter
[2024-11-01 19:34] VITALS: BP 158/94; PULSE 77; RESP 18; O2SAT 97
--- NOTE | 2024-11-01 19:36 | ED_ITS ---
Documented by User: RODRIGO Hunter 11/02/24 00:50 HPI - Abdominal Pain 2 General: Chief Complaint: Abdominal Pain Stated Complaint: Possible Gall Bladder Attack\Back Pain\Light [place]ade History of Present Illness: Patient is a 74-year-old female with presentation of 2-3 hours of severe right upper quadrant and epigastric abdominal pain. This is associated with nausea, vomiting, and bloating. Patient has association of diaphoresis as well. No chest discomfort. No shortness of breath. She does believe she was passing gas this morning and had a normal bowel movement. She has not passed gas lately. She does not believe this has anything to do with the eating. Abdominal surgeries: Appendectomy, gastric band. Gastric band was 2008 [place], [place]. Gastric band was reversed at this facility greater than 5 years ago with a physician that is no longer here. Associated Symptoms: Reports bloating, GI cramping, heartburn, nausea and vomiting; Denies belching, change in bowel habits, change in stool character, excessive flatus, fever(s), hematuria and syncope Related Data Home Medications ?Medication ?Instructions ?Recorded ?Confirmed clonazepam 0.5 mg disintegrating 0.5 mg PO BID PRN Anx iety 06/08/20 01/14/24 tablet diphenhydramine HCl 25 mg capsule 25 mg PO BEDTIME Ins omnia 12/18/21 01/14/24 (Benadryl) duloxetine 20 mg capsule,delayed 25 mg PO DAILY 01/14/24 release triamcinolone acetonide 0.1 % 1 applic topical 2 01/14/24 lotion budesonide-formoterol HFA 160 1 inh inhalation BID 01/14/24 mcg-4.5 mcg/actuation aerosol inhaler (Symbicort) prazosin 1 mg capsule 1 mg PO BID 07/09/23 4 Previous Rx's ?Medication ?Instructions ?Recorded triamcinolone acetonide 0.1 % 1 applic topical BID #80 grams 12/18/21 topical ointment furosemide 40 mg tablet See Rx Instructions .Route 1 03/16/23 .COMPLEX #90 tabs potassium chloride 20 mEq See Rx Instructions .Route 0 08/27/24 tablet,extended release .COMPLEX #90 tabs nitroglycerin 0.4 mg sublingual 0.4 mg sublingual Q5M PRN chest 09/24/24 tablet pain 30 days #30 tabs losartan 25 mg tablet See Rx Instructions .Route 0 09/28/24 .COMPLEX #90 tabs Allergies Allergy/AdvReac Type Severity Reaction Status Date / Time iron Allergy ADR-Vomitin Verified 10/06/23 14:36 g Review of Systems 2 Const: Denies: fever(s) or fatigue Card: Denies: chest pain, palpitations, irregular heart rhythm, swelling of feet/ankles, lightheadedness, syncope, pre-syncope or dyspnea on exertion Resp: Denies: dyspnea or wheezing GI: Reports: abdominal pain, nausea, vomiting, heartburn, bloating and GI cramping; Denies: belching, excessive flatus, change in bowel habits or change in stool character : Denies: hematuria Musc: Denies: neck pain, back pain or joint pain Neuro: Denies: headache(s), numbness in extremities, weakness in extremities or dizziness Psych: Denies: anxiety or depression John/Lymph: Denies: easy bruising or easy bleeding PFSH ED 2 PFSH: Medical History (Updated 11/01/24 @ 23:23 by RODRIGO Hunter) Hx of primary hypertension History of depression Hx of gastroesophageal reflux (GERD) Hx of multiple concussions Surgical History Hx of bilateral hip replacements History of esophagogastroduodenoscopy (EGD) 2020 Hx of laparoscopic gastric banding Hx of tubal ligation Hx of oral surgery Hx of dilation and curettage History of repair of ACL Hx of breast reduction, elective History of appendectomy H/O total knee replacement Social History Smoking and tobacco/nicotine status: never used tobacco/nicotine Alcohol intake: current Alcohol intake frequency: few times a month Substance/Drug Use: never Physical Exam 2 Const: COMMON NORMALS: patient oriented x3 GENERAL APPEARANCE: cooperative, in distress and anxious NUTRITIONAL APPEARANCE: obese HENMT: COMMON NORMALS: normocephalic and atraumatic HEAD & SCALP: n ormocephalic and atraumatic Neck/C-Spine: COMMON NORMALS: full ROM and no lymphadenopathy Lymph: LYMPHATIC: no lymphadenopathy noted Chest: COMMONS NORMALS: normal inspection of the chest and normal palpation of entire chest wall Resp: COMMON NORMALS: normal respiratory effort, No retractions and clear to auscultation bilaterally AUSCULTATION: clear to auscultation bilaterally Cardio: COMMON NORMALS: regular rate and regular rhythm RATE: regular rate RHYTHM: regular rhythm GI: AUSCULTATION: Yes Hypoactive bowel sounds present, No High-pitched bowel sounds present and No Abdominal bruit PALPATION: Yes Firmness to palpation present (GI), Yes Tenderness to palpation present (GI) (epigastrum) Details: RUQ, No Guarding due to palpation present (GI) and No Hernia present : EXTERNAL FEMALE EXAM: No Hernia present Extremity: COMMON NORMALS: normal to inspection, full ROM and capillary refill normal Neuro: COMMON NORMALS: patient oriented x3 Course 2 Reevaluation(s): Reevaluation #1: Patient had pain return. Reordered morphine, Zofran. Consultations: Consultation #1: Called [facility] to transfer. Surgeon refused transfer. [place] center is unsure why. Repaged surgeon. Consultation #2: From the [facility], the warehouse traffic supervisor called back, after discussion with both Malu, and Leeann at [facility] and stated Dr. Orozco was not accepting the patient and to check other places. Ellen, the warehouse traffic supervisor would not state why, and just stated to check other places. The surgeon would not talk to me directly. Ml ultimately hung up on me for no reason. Consultation #3: Discussed with Dr. Kim, our local surgeon on-call. Given the concern on both CT, and ultrasonography for choledocholithiasis, with services not available here such as intraoperative cholangiogram or ERCP that are both not available here, the patient will need to seek services somewhere else. Additional Consultation(s): Discussed with [facility]. They will discuss with their hospitalist/surgeon to place on list since they are full and do not have beds at this time, however believe this is appropriate for transfer and services not available at this facility. Nursing called back promptly. Dr. Peña excepted the patient. He did think that an MRCP in the morning would be beneficial to the patient's care. They do not believe they will have rooms before noon, and MRCP would help to place that in the cloud for their surgeon and ongoing care with the hospitalist team. Vital Signs: Vital signs: Vital Signs Temperature 97.4 F L 11/01/24 18:32 Pulse Rate 98 11/02/24 00:28 Respiratory Rate 16 11/02/24 00:28 Blood Pressure 149/91 11/02/24 00:28 Pulse Oximetry 91 11/02/24 00:28 Oxygen Delivery Me thod Room Air 11/01/24 20:38 MDM - Abdominal Pain Medical Decision Making 74-year-old female presented to the ED with abdominal bloating, pain, nausea, vomiting. She does not believe it had any relationship to food. This was sudden onset nature. She has a history of gastric banding, appendectomy. She has her gallbladder intact. She also has epigastric tenderness as well. She had a normal stool this morning. Will obtain routine workup and labs. She then had gastric band reversal. Attempted to place patient at [facility], however surgeon with [facility], Dr. Orozco refused to talk to me x 2. Apparently told the transfer center that I need to seek services at a different facility. Beds were available at [facility]. I discussed with our surgeon, Dr. Kim, and he did as well agree there are services not available here that we were trying to seek for this patient. I discussed the case with [facility] transfer [place]. Transfer center put me in touch with hospitalist that agrees patient needs to be transferred. Confirm Zosyn was started. Confirmed blood cultures were obtained before Zosyn. Confirmed pain is better control as well as nausea. Patient had some waffling with being transferred because storms are coming. I have reassured patient this is the best thing for her, and she gives me her word that she has no problem with transferring after this was explained in layman's terms. I do suspect patient's bilirubin is not yet high due to the fact she had her pain 2-3 hours. This occurred just prior to arrival. I did suspect cardiac as a component with her diaphoresis even though she has never had any chest discomfort. Her troponin is negative, and EKG does not show any ST segment elevation. Alkaline phosphatase is not yet rise, bilirubin is 1.2, and ALT is 77, AST is 47. The best outcome for this patient is transferring to a tertiary care. I have placed her on basal fluids at 100 mL/HR, every 8 hours Zosyn, and every 3 as needed morphine, with every 6 as needed Zofran, and every 6 as needed Benadryl for nausea. I have given report to Dr. Rice and will turn this patient over to him. Medical Records I reviewed the patient's medical records. Lab Data I reviewed the patient's lab results. 11/01/24 19:31 11/01/24 19:31 Labs/Radiology: Radiology Impressions Abdomen/Pelvis CT 11/01/24 19:55 IMPRESSION: 1. Findings of distended gallbladder with thickened wall configuration motion accordance with acute cholecystitis. 2. Intra and extrahepatic biliary ductal dilatation with distal choledocholithiasis further evaluation with ERCP recommended 3. Hepatomegaly with diffuse fatty infiltration of the liver. 4. Colonic diverticulosis. 5. Right ovarian dermoid 4.8 cm 6. Myomatous uterus. Abdomen Ultrasound 11/01/24 21:18 IMPRESSION: Findings of distended gallbladder with thickened wall acute cholecystitis not excluded. Extrahepatic biliary ductal dilatation further workup recommended as above obstructive process at the inferior common bile duct not excluded I suspect that consider correlation with alkaline phosphatase levels values and further imaging. Fatty liver Laboratory Results WBC 18.37 10^3/uL (3.29-11.43) H 11/01/24 19: RBC 5.00 10^6/uL (3.85-5.65) 11/01/24 19: Hgb 14.90 g/dL (11.27-16.99) 11/01/24 19:31 Hct 47.6 % (36-47) H 11/01/24 19: MCV 95.2 fl (85-98) 11/01/24 19: MCH 29.8 pg (27-33) 11/01/24 19: MCHC 31.3 g/dL (30-55) 11/01/24 19: RDW 14.3 % (12.1-15.1) 11/01/24 19: Plt Count 254 10^3/cmm (157-399) 11/01/24 19: MPV 10.2 fL (7.4-10.4) 11/01/24 19:31 Neut % (Auto) 89.9 % 11/01/24 19: Lymph % (Auto) 4.9 % 11/01/24 19: Churchill % (Auto) 4.2 % 11/01/24 19:31 Eos % (Auto) 0.3 % 11/01/24 19:31 Baso % (Auto) 0.3 % 11/01/24 19: Neut # (Auto) 16.51 10^3/uL (1.8-7.7) H 11/01/24 19:31 Lymph # (Auto) 0.9 10^3/uL (0.8-4.8) 11/01/24 19: Churchill # (Auto) 0.8 10^3/uL (0.2-0.9) 11/01/24 19: Eos # (Auto) 0.1 10^3/uL (0.0-0.8) 11/01/24: Baso # (Auto) 0.1 10^3/uL (0.0-0.1) 11/01/24 19: Nucleated RBC % (auto) 0 % 11/01/24: Nucleated RBCs # 0.0 /100WBC 11/01/24 19: Sodium 140 mmol/L (136-145) 11/01/24 19: Potassium 4.1 mmol/L (3.5-5.1) 11/01/24: Chloride 100 mmol/L (98-107) 11/01/24: Carbon Dioxide 25 mmol/L (22-29) 11/01/24 19: Anion Gap 19.1 (5-19) H 11/01/24 19: BUN 9 mg/dL (8-23) 11/01/24: Creatinine 0.6 mg/dL (0.5-0.9) 11/01/24 19: GFR Calculation Not Reportable 11/01/24: Glucose 154 mg/dL (65-115) H 11/01/24 19: Calculated Osmolality 292 mOsm/kg (285-295) 11/01/24: Lactic Acid 1.8 mmol/L (0.5-2.2) 11/01/24 19: Calcium 9.1 mg/dL (8.5-10.5) 11/01/24 19: Total Bilirubin 1.2 mg/dL (0.15-1.2) 11/01/24 19:31 AST 77 U/L (0-32) H 11/01/24 19:31 ALT 47 U/L (0-33) H 11/01/24 19:31 Alkaline Phosphatase 94 U/L (35-105) 11/01/24 19:31 Troponin T Baseline 9 ng/L (0-10) 11/01/24 19:31 Total Protein 7.8 g/dL (6.6-8.7) 11/01/24 19:31 Albumin 4.3 g/dL (3.5-5.2) 11/01/24 19:31 Globulin 3.5 g/dL (1.3-4.6) 11/01/24 19:31 Lipase 21 U/L (13-60) 11/01/24 19:31 All radiology interpretation(s) finalized by discharge EKG Data EKG 1: Interpretation: Normal sinus rhythm with nonspecific ST segment changes, inverted T waves aVR, V2, and V., With isolated PVC Discharge Plan Discharge Patient Disposition: Xfer Short-Term Hosp Clinical Impression: Choledocholithiasis with acute cholecystitis with obstruction Condition: Stable Referrals: Franklyn Brown MD [Primary Care Provider, [facility]] Print Language: Sinhala Coding Level of Care Code ED Revenue Audit Clerk for Chg Fwd Documented by User: Cruz Rice MD 11/02/24 01:29 HPI - Abdominal Pain 2 General: Chief Complaint: Abdominal Pain Stated Complaint: Possible Gall Bladder Attack\Back Pain\[place] Related Data Home Medications ?Medication ?Instructions ?Recorded ?Confirmed clonazepam 0.5 mg disintegrating 0.5 mg PO BID PRN Anx iety 06/08/20 01/14/24 tablet diphenhydramine HCl 25 mg capsule 25 mg PO BEDTIME Ins omnia 12/18/21 01/14/24 (Benadryl) duloxetine 20 mg capsule,delayed 25 mg PO DAILY 01/14/24 release triamcinolone acetonide 0.1 % 1 applic topical 2 01/14/24 lotion budesonide-formoterol HFA 160 1 inh inhalation BID 01/14/24 mcg-4.5 mcg/actuation aerosol inhaler (Symbicort) prazosin 1 mg capsule 1 mg PO BID 07/09/23 4 Previous Rx's ?Medication ?Instructions ?Recorded triamcinolone acetonide 0.1 % 1 applic topical BID #80 grams 12/18/21 topical ointment furosemide 40 mg tablet See Rx Instructions .Route 1 03/16/23 .COMPLEX #90 tabs potassium chloride 20 mEq See Rx Instructions .Route 0 08/27/24 tablet,extended release .COMPLEX #90 tabs nitroglycerin 0.4 mg sublingual 0.4 mg sublingual Q5M PRN chest 09/24/24 tablet pain 30 days #30 tabs losartan 25 mg tablet See Rx Instructions .Route 0 09/28/24 .COMPLEX #90 tabs Allergies Allergy/AdvReac Type Severity Reaction Status Date / Time iron Allergy ADR-Vomitin Verified 10/06/23 14:36 g PFSH ED 2 PFSH: Medical History (Updated 11/01/24 @ 23:23 by RODRIGO Hunter) Hx of primary hypertension History of depression Hx of gastroesophageal reflux (GERD) Hx of multiple concussions Surgical History Hx of bilateral hip replacements History of esophagogastroduodenoscopy (EGD) 2020 Hx of laparoscopic gastric banding Hx of tubal ligation Hx of oral surgery Hx of dilation and curettage History of repair of ACL Hx of breast reduction, elective History of appendectomy H/O total knee replacement Social History Smoking and tobacco/nicotine status: never used tobacco/nicotine Alcohol intake: current Alcohol intake frequency: few times a month Substance/Drug Use: never Course 2 Vital Signs: Vital signs: Vital Signs Temperature 97.4 F L 11/01/24 18:32 Pulse Rate 98 11/02/24 00:28 Respiratory Rate 16 11/02/24 00:28 Blood Pressure 149/91 11/02/24 00:28 Pulse Oximetry 91 11/02/24 00:28 Oxygen Delivery Me thod Room Air 11/01/24 20:38 MDM - Abdominal Pain Medical Decision Making 74-year-old female presented to the ED with abdominal bloating, pain, nausea, vomiting. She does not believe it had any relationship to food. This was sudden onset nature. She has a history of gastric banding, appendectomy. She has her gallbladder intact. She also has epigastric tenderness as well. She had a normal stool this morning. Will obtain routine workup and labs. She then had gastric band reversal. Attempted to place patient at [facility], however surgeon with [facility], Dr. Orozco refused to talk to me x 2. Apparently told the transfer center that I need to seek services at a different facility. Beds were available at [facility]. I discussed with our surgeon, Dr. Kim, and he did as well agree there are services not available here that we were trying to seek for this patient. I discussed the case with [facility] transfer center. Transfer center put me in touch with hospitalist that agrees patient needs to be transferred. Confirm Zosyn was started. Confirmed blood cultures were obtained before Zosyn. Confirmed pain is better control as well as nausea. Patient had some waffling with being transferred because storms are coming. I have reassured patient this is the best thing for her, and she gives me her word that she has no problem with transferring after this was explained in layman's terms. I do suspect patient's bilirubin is not yet high due to the fact she had her pain 2-3 hours. This occurred just prior to arrival. I did suspect cardiac as a component with her diaphoresis even though she has never had any chest discomfort. Her troponin is negative, and EKG does not show any ST segment elevation. Alkaline phosphatase is not yet rise, bilirubin is 1.2, and ALT is 77, AST is 47. The best outcome for this patient is transferring to a tertiary care. I have placed her on basal fluids at 100 mL/HR, every 8 hours Zosyn, and every 3 as needed morphine, with every 6 as needed Zofran, and every 6 as needed Benadryl for nausea. I have seen this patient with above midlevel I agree with her history physical. Patient does have elevated common bile duct concerning for obstruction. Patient is going to be transferred to [facility] for higher level care for ERCP. Lab Data 11/01/24 19:31 11/01/24 19:31 Labs/Radiology: Radiology Impressions Abdomen/Pelvis CT 11/01/24 19:55 IMPRESSION: 1. Findings of distended gallbladder with thickened wall configuration motion accordance with acute cholecystitis. 2. Intra and extrahepatic biliary ductal dilatation with distal choledocholithiasis further evaluation with ERCP recommended 3. Hepatomegaly with diffuse fatty infiltration of the liver. 4. Colonic diverticulosis. 5. Right ovarian dermoid 4.8 cm 6. Myomatous uterus. Abdomen Ultrasound 11/01/24 21:18 IMPRESSION: Findings of distended gallbladder with thickened wall acute cholecystitis not excluded. Extrahepatic biliary ductal dilatation further workup recommended as above obstructive process at the inferior common bile duct not excluded I suspect that consider correlation with alkaline phosphatase levels values and further imaging. Fatty liver Laboratory Results WBC 18.37 10^3/uL (3.29-11.43) H 11/01/24 19:31 RBC 5.00 10^6/uL (3.85-5.65) 11/01/24 19:31 Hgb 14.90 g/dL (11.27-16.99) 11/01/24 19:31 Hct 47.6 % (36-47) H 11/01/24 19:31 MCV 95.2 fl (85-98) 11/01/24 19:31 MCH 29.8 pg (27-33) 11/01/24 19:31 MCHC 31.3 g/dL (30-55) 11/01/24 19:31 RDW 14.3 % (12.1-15.1) 11/01/24 19:31 Plt Count 254 10^3/cmm (157-399) 11/01/24 19:31 MPV 10.2 fL (7.4-10.4) 11/01/24 19:31 Neut % (Auto) 89.9 % 11/01/24 19:31 Lymph % (Auto) 4.9 % 11/01/24 19:31 Churchill % (Auto) 4.2 % 11/01/24 19:31 Eos % (Auto) 0.3 % 11/01/24 19:31 Baso % (Auto) 0.3 % 11/01/24 19:31 Neut # (Auto) 16.51 10^3/uL (1.8-7.7) H 11/01/24 19:31 Lymph # (Auto) 0.9 10^3/uL (0.8-4.8) 11/01/24 19:31 Churchill # (Auto) 0.8 10^3/uL (0.2-0.9) 11/01/24 19:31 Eos # (Auto) 0.1 10^3/uL (0.0-0.8) 11/01/24 19:31 Baso # (Auto) 0.1 10^3/uL (0.0-0.1) 11/01/24 19:31 Nucleated RBC % (auto) 0 % 11/01/24 19:31 Nucleated RBCs # 0.0 /100WBC 11/01/24 19:31 Sodium 140 mmol/L (136-145) 11/01/24 19:31 Potassium 4.1 mmol/L (3.5-5.1) 11/01/24 19:31 Chloride 100 mmol/L (98-107) 11/01/24 19:31 Carbon Dioxide 25 mmol/L (22-29) 11/01/24 19:31 Anion Gap 19.1 (5-19) H 11/01/24 19:31 BUN 9 mg/dL (8-23) 11/01/24 19:31 Creatinine 0.6 mg/dL (0.5-0.9) 11/01/24 19:31 GFR Calculation Not Reportable 11/01/24 19:31 Glucose 154 mg/dL (65-115) H 11/01/24 19:31 Calculated Osmolality 292 mOsm/kg (285-295) 11/01/24 19:31 Lactic Acid 1.8 mmol/L (0.5-2.2) 11/01/24 19:31 Calcium 9.1 mg/dL (8.5-10.5) 11/01/24 19:31 Total Bilirubin 1.2 mg/dL (0.15-1.2) 11/01/24 19:31 AST 77 U/L (0-32) H 11/01/24 19:31 ALT 47 U/L (0-33) H 11/01/24 19:31 Alkaline Phosphatase 94 U/L (35-105) 11/01/24 19:31 Troponin T Baseline 9 ng/L (0-10) 11/01/24 19:31 Total Protein 7.8 g/dL (6.6-8.7) 11/01/24 19:31 Albumin 4.3 g/dL (3.5-5.2) 11/01/24 19:31 Globulin 3.5 g/dL (1.3-4.6) 11/01/24 19:31 Lipase 21 U/L (13-60) 11/01/24 19:31 Discharge Plan Discharge Patient Disposition: Xfer Short-Term Hosp Clinical Impression: Choledocholithiasis with acute cholecystitis with obstruction Condition: Stable Referrals: Franklyn Brown MD [Primary Care Provider, [facility]] Print Language: Sinhala Coding Level of Care Code ED Revenue Audit Clerk for Ayla Cuellar
--- NOTE | 2024-11-01 19:45 | PC.NURSE ---
pt told this nurse she had wet herself . this nurse asked if we could change pt and get her cleaned up, pt stated not yet. you can do it when i'm discharged .
[2024-11-01 19:55] LABS: Hematocrit 47.6 % (36-47); Hemoglobin 14.90 g/dL (11.27-16.99); Mean Corpuscular HGB Conc 31.3 g/dL (30-55); Mean Corpuscular Hemoglobin 29.8 pg (27-33); Mean Corpuscular Volume 95.2 fl (85-98); Nucleated Red Blood Cells % 0 %; Platelet Count 254 10^3/cmm (157-399); Red Blood Count 5.00 10^6/uL (3.85-5.65); White Blood Count 18.37 10^3/uL (3.29-11.43)
--- NOTE | 2024-11-01 19:55 | CTR_ITS ---
PROCEDURE INFORMATION: Exam: CT Abdomen And Pelvis With Contrast Exam date and time: 11/01/2024 8:21 PM Age: 74 years old Clinical indication: Abdominal pain; Prior surgery; Surgery date: 6+ months; Surgery type: Appy, hysterectomy, tubal TECHNIQUE: Imaging protocol: Computed tomography of the abdomen and pelvis with contrast. Radiation optimization: All CT scans at this facility use at least one of these dose optimization techniques: automated exposure control; mA and/or kV adjustment per patient size (includes targeted exams where dose is matched to clinical indication); or iterative reconstruction. Contrast material: OMNI 350; Contrast volume: 100 ml; Contrast route: INTRAVENOUS (IV); COMPARISON: CT abdomen pelvis w con* [id number] 08/07/2021 2:50 PM RADIATION DOSE METRICS: Total DLP (mGy-cm): 1293.86 FINDINGS: Lungs: There are compressed parenchyma changes posterior basal segmental lower lobes could represent subsegmental atelectasis. Coronary arteries: No significant coronary artery calcifications present. Diaphragm: Moderate-sized hiatus hernia present. Liver: There is hepatomegaly liver is measured at 22 cm longitudinally and demonstrates severe fatty infiltration. Gallbladder and biliary ducts: There is demonstration of distended gallbladder with thickened wall. There is intra and extrahepatic biliary ductal dilatation. Common bile duct dilated to 1.4 cm. There is a stone in the inferior common bile duct compatible with findings of choledocholithiasis. Further workup recommended to include ERCP. Pancreas: There are no peripancreatic inflammatory changes Spleen: Unremarkable. No splenomegaly. Adrenal glands: Normal. No mass. Kidneys and ureters: Unremarkable. No hydronephrosis. Stomach and bowel: There are findings of colonic diverticulosis without obstruction. Appendix: The appendix with surgical removal Intraperitoneal space: Unremarkable. No free air. No significant fluid collection. Vasculature: Unremarkable. No abdominal aortic aneurysm. Lymph nodes: Unremarkable. No enlarged lymph nodes. Urinary bladder: Urinary bladder is collapsed. Reproductive: There is demonstration of a right ovarian 4.8 cm dermoid. There are findings of myomatous uterus. Bones/joints: Evaluation of the pelvic organs limited due to streak artifact from bilateral hip arthroplasties Soft tissues: Unremarkable. CT/CT abdomen pelvis w con* [id number] IMPRESSION: 1. Findings of distended gallbladder with thickened wall configuration motion accordance with acute cholecystitis. 2. Intra and extrahepatic biliary ductal dilatation with distal choledocholithiasis further evaluation with ERCP recommended 3. Hepatomegaly with diffuse fatty infiltration of the liver. 4. Colonic diverticulosis. 5. Right ovarian dermoid 4.8 cm 6. Myomatous uterus.
[2024-11-01 20:00] VITALS: BP 156/99; PULSE 80; RESP 20; O2SAT 92
[2024-11-01] MEDS: ondansetron 2 mg/ML SDV 2 mL 4 MG IVP (20:02)
[2024-11-01] MEDS: morphine 4 mg/mL SDV 1 mL IVP (20:02)
--- NOTE | 2024-11-01 20:04 | ECG_ITS ---
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 Measurements Intervals [place] Rate: 79 P: 166 DE: 195 QRS: 213 QRSD: 97 T: 51 QT: 370 QTc: 426 Interpretive Statements SINUS RHYTHM WITH OCCASIONAL VENTRICULAR PREMATURE COMPLEXES ARM LEADS REVERSED [INVERTED P AND QRS IN I] Compared to ECG 07/09/2023 12:29:10 Ventricular premature complex(es) now present First degree AV block no longer present LIMB LEAD REVERSAL IS NEW Electronically Signed On 11-03-2024 21:02:55 CDT by Jeff Palma M.D. [email or web address]
[2024-11-01 20:05] LABS: Alanine Aminotransferase 47 U/L (0-33); Albumin Level 4.3 g/dL (3.5-5.2); Alkaline Phosphatase 94 U/L (35-105); Anion Gap 19.1 (5-19); Aspartate Amino Transferase 77 U/L (0-32); Blood Urea Nitrogen 9 mg/dL (8-23); Calcium 9.1 mg/dL (8.5-10.5); Carbon Dioxide 25 mmol/L (22-29); Chloride 100 mmol/L (98-107); Creatinine Clr Calc Pharmacy 89.0112; Globulin 3.5 g/dL (1.3-4.6); Glucose 154 mg/dL (65-115); Lipase 21 U/L (13-60); Osmolality Calculated 292 mOsm/kg (285-295); Potassium 4.1 mmol/L (3.5-5.1); Sodium 140 mmol/L (136-145); Total Protein 7.8 g/dL (6.6-8.7)
[2024-11-01] MEDS: iohexol 350 mg/mL 500 mL Btl (per mL) IV (20:32)
[2024-11-01 20:38] VITALS: BP 175/102; PULSE 98; RESP 16; O2SAT 91
[2024-11-01 20:58] LABS: Troponin(5th) Baseline 9 ng/L (0-10)
[2024-11-01 20:59] LABS: Lactic Sepsis W/Reflex 1.8 mmol/L (0.5-2.2)
--- NOTE | 2024-11-01 21:18 | USR_ITS ---
PROCEDURE INFORMATION: Exam: US Abdomen, Limited; Right Upper Quadrant Exam date and time: 11/01/2024 9:36 PM Age: 74 years old Clinical indication: Abdominal pain; Generalized; Prior surgery; Surgery date: 6+ months; Surgery type: Appy; Additional info: Ruq pain TECHNIQUE: Imaging protocol: Real time ultrasound of the abdomen with image documentation. Limited exam focused on the right upper quadrant. COMPARISON: CT abdomen pelvis w con* [id number] 11/01/2024 8:21 PM FINDINGS: Liver: Liver is enlarged measuring 17 cm on demonstrate echogenic appearance suggesting fatty infiltration. Gallbladder: The gallbladder is distended with wall thickness estimated at 4 mm. No tenderness localized to the gallbladder. No gallstones identified. Biliary ducts: The common bile duct is dilated at 1.5 cm. Inferior common bile duct obscured the bowel gas. The possibility of obstructive process of the inferior common bile duct not excluded consider further workup to include MRI abdomen with MRCP. Correlation with alkaline phosphatase levels also recommended. Pancreas: Examination is somewhat limited due to overlying bowel gas the visualized pancreas demonstrate no abnormality head and tail obscured by bowel gas. Right kidney: Right kidney obscured by bowel gas. Portal venous: The main portal vein was obscured by bowel gas. US/US abdomen limited [id number] IMPRESSION: Findings of distended gallbladder with thickened wall acute cholecystitis not excluded. Extrahepatic biliary ductal dilatation further workup recommended as above obstructive process at the inferior common bile duct not excluded I suspect that consider correlation with alkaline phosphatase levels values and further imaging. Fatty liver
[2024-11-01] MEDS: piperacillin-tazobactam 4.5 GM in sodium chloride 0.9% (plus) 50 ML IV (22:50)
--- NOTE | 2024-11-01 23:50 | PC.NURSE ---
pt states she is still wet. this nurse offered to clean pt and help her into dry clothes. pt states she will not let us until she is being discharged. this nurse told pt she was being transferred to another facility and we didn't know the time frame for her discharge. pt turned onto her right said and again stated she would wait until she was being discharged.
[2024-11-02 00:01] VITALS: RESP 20
[2024-11-02] MEDS: ondansetron 2 mg/ML SDV 2 mL 4 MG IVP ×2 (00:01→07:36)
[2024-11-02] MEDS: morphine 4 mg/mL SDV 1 mL IVP ×2 (00:01→07:38)
--- NOTE | 2024-11-02 00:27 | PC.NURSE ---
Prior to giving pt morphine this nurse confirmed with provider as it is listed as an allergy and provider confirmed pt was receiving anti nausea medicine and did well with it earlier in shift. Pt verbalized and said she wanted to proceed.
[2024-11-02 00:28] VITALS: BP 149/91; PULSE 98; RESP 16; O2SAT 91
[2024-11-02 02:00] VITALS: BP 132/97; PULSE 88; O2SAT 94
[2024-11-02 04:00] VITALS: BP 109/66; PULSE 93; O2SAT 93
[2024-11-02] MEDS: piperacillin-tazobactam 3.375 GM in sodium chloride 0.9% (plus) 50 ML IV (06:01)
--- NOTE | 2024-11-02 07:53 | PC.NURSE ---
pt taken to [facility] @ [id number] by mri
[2024-11-02 09:43] VITALS: BP 133/78; PULSE 67; O2SAT 98
== END 2024-11-02 09:45 | disposition short-term general hospital (02) ==
PROVIDERS: Emergency Provider Physician Assistant; PCP Family Medicine
DX: K80.43 Calculus of bile duct with acute cholecystitis with obstruction (principal); I10 Essential (primary) hypertension
CPT/HCPCS: 36415; 74177; 76705; 80053; 83605; 83690; 84484; 85025; 87040; 93005; 96365; 96366; 96375; 96376; 99285; J2270; J2405; J2543; J3010; J7030